=== PATIENT | male | born 1960 | race Caucasian/White ===

== ENCOUNTER 2018-03-23 06:15 | Inpatient (IN) | payer MEDICARE ==
[2018-03-23 06:57] LABS: #Basophils 0.1 thou/uL (0.0-0.2); #Eosinphils 0.1 thou/uL (0.0-0.7); #Lymphocytes 0.5 thou/uL (1.20-3.40); #Monocytes 0.1 thou/uL (0.11-0.59); #Neutrophils 2.9 thou/uL (1.40-6.50); %Basophils 2.1 % (0.0-1.0); %Eosinophils 2.8 % (0.0-10.0); %Lymphocytes 14.3 % (21.0-51.0); %Monocytes 1.6 % (0.0-10.0); %Neutrophils 79.2 % (42.0-75.0); Hemoglobin 15.7 g/dL (14.0-18.0); Mean Corpuscular HGB CONC 33.7 g/dL (32.0-36.0); Mean Corpuscular Hemoglobin 29.5 pg (27.0-31.0); Mean Corpuscular Volume 87.8 fL (78.0-98.0); Mean Platelet Volume 8.8 fL (7.4-10.4); Platelet Count 253 thou/uL (130-400); RBC Distribution Width 12.7 % (11.5-14.5); Red Blood Cell (RBC) Count 5.32 mill/uL (4.70-6.10); White Blood Cell (WBC) Count 3.6 thou/uL (4.8-10.8)
[2018-03-23 07:09] LABS: ALT (SGPT) 36 U/L (8-55); AST (SGOT) 30 U/L (5-34); Albumin 3.9 g/dL (3.5-5.0); Alkaline Phosphatase 113 U/L (40-150); Anion Gap 20 mmol/L (10-20); BUN (Urea Nitrogen) 42 mg/dL (8.4-25.7); Bilirubin, Total 1.1 mg/dL (0.2-1.2); Calc. Creatinine Clearance 0 mL/min (70-130); Calcium 10.1 mg/dL (7.8-10.44); Carbon Dioxide 17 mmol/L (22-29); Chloride 101 mmol/L (98-107); Estimated GFR-MDRD 25; Glucose 129 mg/dL (70-105); Potassium 4.8 mmol/L (3.5-5.1); Protein, Total 7.9 g/dL (6.0-8.3); Sodium 133 mmol/L (136-145)
[2018-03-23] MEDS ORDERED: Lorazepam 2 MG/ML VIAL ONE (07:10)
[2018-03-23 07:12] LABS: CKMB 1.9 ng/mL (0-6.6)
[2018-03-23] MEDS ORDERED: Dexamethasone 10 MG/ML VIAL ONE (07:41)
[2018-03-23] MEDS ORDERED: Fentanyl 100 MCG/2 ML VIAL ONE (07:44)
--- NOTE | 2018-03-23 07:48 | CT ---
CT ABDOMEN AND PELVIS WITHOUT IV CONTRAST: INDICATIONS: Renal stones and abdominal pain. COMPARISON: 11/08/2013 FINDINGS: There is prominent fatty infiltration of the liver, which has worsened from the prior exam. The panc reas, adrenal glands, and spleen appear within normal limits. There is extensive stone disease within both kidneys that has progressed from the prior exam. The la rgest stone, seen within the right kidney, measures 1.7 cm, within the inferior pole. There is a pro minent stone within the renal pelvis, measuring 1.5 cm. There is periureteral inflammatory stranding seen involving the right ureter, without visible intraluminal stone, that may reflect sequela of a r ecently passed stone or an ascending urinary tract infection. The largest stone within the left kidn ey is seen within the left renal pelvis, measuring 9.5 mm. There are moderate calcifications involving the abdominopelvic vasculature. Unopacified large and small bowel are unremarkable. There is a normal appendix in the right lower qu adrant. There is scattered degenerative and osteoarthritic change. IMPRESSION: 1. Worsening stone disease within both kidneys. There is inflammatory stranding involving the right renal collecting system, which may reflect sequela of a recently passed stone or possibly an ascendi ng urinary tract infection. Recommend correlation with the patient's clinical examination and labora tory evaluation. 2. Worsening fatty liver. 3. Other chronic findings as above. POS: [facility]
[2018-03-23 08:04] LABS: Blood, Urine Large (Negative); Clarity TURBID (Clear); Glucose, Urine (Dipstick) Negative (Negative); Leukocyte Large (Negative); Nitrite Positive (Negative); Protein, Urine (Dipstick) 100 mg/dL (Neg-Trace); Specific Gravity, Urine 1.017 (1.002-1.036); pH, Urine 5.5 (5.0-9.0)
[2018-03-23 08:13] LABS: Hyaline Casts/LPF >50 HYALINE CAST LPF (0-3 Hyaline); Pathc Cast-AUWi Flag 48.86 (0-2.49); Yeast-AUWi Flag 371.7 (0-25.0)
[2018-03-23 08:28] LABS: Prothrombin Time 14.3 SEC (12.0-14.7)
[2018-03-23 08:29] LABS: INR-International Normal Ratio 1.1; PTT 29.3 SEC (22.9-36.1)
[2018-03-23 08:38] LABS: Bilirubin Negative (Negative)
[2018-03-23 08:39] LABS: Bacteria/HPF 2+ HPF (None Seen); RBC/HPF GREATER THAN 50-TNTC HPF (0-3)
[2018-03-23 08:56] LABS: Actual Bicarbonate (HCO3a) 16.4 mEq/L (22-28); Analyzer IN Cardio ER; Base Excess (BEa) -4.9 mEq/L (-2.0 to +3.0); Calcium, Ionized 1.11 mmol/L (1.12-1.30); Carboxyhemoglobin (COHb) 0.6 gm% (0.0-3.0); Hemoglobin (Hb) 15.7 g/dL (14.0-18.0); O2 Tension (PaO2) 64.1 mmHg (80.0-100.0); Potassium - ABG Lab 4.61 mmol/L (3.70-5.30); pH, Arterial 7.47 (7.35-7.45)
[2018-03-23 08:59] LABS: CO2 Tension 23.1 mmHg (35.0-45.0)
[2018-03-23 09:00] LABS: ALV-art Gradient 56.755 (0-20); Puncture Site RB
[2018-03-23] MEDS ORDERED: Cefepime 2 GM in Sodium Chloride 0.9% 100 ML IVPB SCH (09:00)
--- NOTE | 2018-03-23 09:07 | RAD ---
CHEST TWO VIEWS: INDICATIONS: Hematuria. COMPARISON: 11/07/2013 FINDINGS/IMPRESSION: No definite acute abnormality is evident. No consolidation is evident. Heart size and pulmonary vas culature appear within normal limits for the exam technique. No pleural effusion or pneumothorax is evident within the limitations of the exam. No acute osseous abnormality is noted. Both exams are p ortable and somewhat underpenetrated. POS: [facility]
[2018-03-23] MEDS ORDERED: Ondansetron ODT 4 MG TAB PO PRN (09:43)
[2018-03-23] MEDS ORDERED: Bisacodyl 5 MG TAB PO PRN (09:43)
[2018-03-23] MEDS ORDERED: Artificial Tears 18 DROP/0.9 ML EA EYE PRN (09:43)
[2018-03-23] MEDS ORDERED: Cepastat Lozenges 1 LOZ PO PRN (09:43)
[2018-03-23] MEDS ORDERED: Sodium Chloride 0.65% Nasal 44 ML BOT EA NARE PRN (09:43)
[2018-03-23] MEDS ORDERED: ALL ABX IVPB PRN (09:43)
[2018-03-23] MEDS ORDERED: Senokot S 8.6-50 MG TAB PO PRN (09:43)
[2018-03-23] MEDS ORDERED: Diabetic Tussin 200 MG/10 ML UDCUP PO PRN (09:43)
[2018-03-23] MEDS ORDERED: Zolpidem Tartrate 5 MG TAB PO PRN (09:43)
[2018-03-23] MEDS ORDERED: Loperamide HCl 2 MG CAP PO PRN (09:43)
[2018-03-23] MEDS ORDERED: Eucerin (Mineral Oil/Petrolatum,White) 30 gm Jar TOP PRN (09:43)
[2018-03-23] MEDS ORDERED: Calcium Carbonate 500 MG ChewTAB PO PRN (09:43)
[2018-03-23] MEDS ORDERED: Bisacodyl 10 MG SUPP PR PRN (09:43)
[2018-03-23] MEDS ORDERED: Loratadine 10 MG TAB PO PRN (09:43)
[2018-03-23] MEDS ORDERED: Ondansetron PF 4 MG/2 ML Vial IVP PRN (09:43)
[2018-03-23] MEDS ORDERED: hydrALAZINE 20 MG/ML VIAL SLOW IVP PRN (09:43)
[2018-03-23] MEDS ORDERED: Dextrose 50% Abboject 50 ML SYRINGE SLOW IVP PRN (09:44)
[2018-03-23] MEDS ORDERED: Dextrose 5% in Water 1,000 ML IV PRN (09:44)
[2018-03-23] MEDS ORDERED: HumaLOG 300 UNITS/3 ML VIAL SC PRN (09:44)
[2018-03-23] MEDS ORDERED: Aspirin 325 MG TAB ONE (10:03)
[2018-03-23] MEDS ORDERED: Enoxaparin Sodium 60 MG/0.6 ML SYRINGE ONE (10:06)
[2018-03-23] MEDS ORDERED: Enoxaparin Sodium 100 MG/ML SYRINGE ONE (10:06)
[2018-03-23 10:31] LABS: Troponin I 0.249 ng/mL (< 0.028)
[2018-03-23 10:36] LABS: Lactic Acid 1.6 mmol/L (0.5-2.2)
[2018-03-23] MEDS ORDERED: Morphine 4 MG/ML VIAL SLOW IVP PRN (11:15)
[2018-03-23] MEDS ORDERED: Vancomycin HCl 1 GM in Premix Bag 1 BAG IVPB SCH (11:45)
[2018-03-23] MEDS ORDERED: Cefepime 1 GM in Sodium Chloride 0.9% 100 ML IVPB SCH ×2 (12:00→21:00)
[2018-03-23 13:17] LABS: Troponin I 0.251 ng/mL (< 0.028)
[2018-03-23] MEDS ORDERED: Norepinephrine 8 MG/0.9% NS 250 ML IVPB SCH (13:45)
[2018-03-23] MEDS ORDERED: Norepinephrine 8 MG/0.9% NS 250 ML ONE (14:15)
[2018-03-23] MEDS: Sodium Chloride 0.9% 1,000 ML IV SCH ×2 (14:28→17:17)
[2018-03-23 14:33] VITALS: BMI 47.2
[2018-03-23] MEDS: Potassium Citrate 10 MEQ TAB PO SCH ×2 (14:36→17:07)
[2018-03-23] MEDS: HumaLOG 300 UNITS/3 ML VIAL SC PRN (17:16)
[2018-03-23] MEDS: HYDROcodone/Acetaminophen 5/325 mg Tablet PO PRN (20:16)
[2018-03-24] MEDS: Sodium Chloride 0.9% 1,000 ML IV SCH ×4 (02:56→23:50)
[2018-03-24 05:08] LABS: ALT (SGPT) 32 U/L (8-55); AST (SGOT) 27 U/L (5-34); Alkaline Phosphatase 87 U/L (40-150); Anion Gap 12 mmol/L (10-20); BUN (Urea Nitrogen) 38 mg/dL (8.4-25.7); Bilirubin, Total 0.5 mg/dL (0.2-1.2); Calc. Creatinine Clearance 106 mL/min (70-130); Calcium 8.4 mg/dL (7.8-10.44); Carbon Dioxide 19 mmol/L (22-29); Chloride 109 mmol/L (98-107); Estimated GFR-MDRD 40; Globulin 3.3 g/dL (2.4-3.5); Glucose 221 mg/dL (70-105); Potassium 5.1 mmol/L (3.5-5.1); Protein, Total 6.3 g/dL (6.0-8.3); Sodium 135 mmol/L (136-145)
[2018-03-24 05:20] LABS: Band 28 % (5-11); Hemoglobin 12.6 g/dL (14.0-18.0); Lymphocytes 7 % (21-51); MDiff Complete? YES; Mean Corpuscular HGB CONC 32.7 g/dL (32.0-36.0); Mean Corpuscular Hemoglobin 29.1 pg (27.0-31.0); Mean Corpuscular Volume 89.2 fL (78.0-98.0); Mean Platelet Volume 9.1 fL (7.4-10.4); Monocytes 4 % (0-10); Neutrophil 61 % (42-75); PLT Morphology Comment Appears Adequate; Platelet Count 210 thou/uL (130-400); RBC Distribution Width 12.8 % (11.5-14.5); Red Blood Cell (RBC) Count 4.34 mill/uL (4.70-6.10); White Blood Cell (WBC) Count 18.7 thou/uL (4.8-10.8)
[2018-03-24] MEDS: HumaLOG 300 UNITS/3 ML VIAL SC PRN ×2 (06:15→12:31)
--- NOTE | 2018-03-24 07:49 | HP ---
PRIMARY CARE PHYSICIAN: Ashleigh Engle MD REASON FOR ADMISSION: Sepsis with acute organ dysfunction, acute kidney failure , acute pyelonephritis. HISTORY OF PRESENT ILLNESS: A 57-year-old male who has underlying history of diabetes, hypertension, dyslipidemia, obesity, who presented to emergency room with complaint of fever, chills. The patient was also having dysuria, hematuria, increased frequency, and back pain. He was sick for about one week. He was not getting better, but day by day, his condition started getting worse. Today, he started having cough and shortness of breath as well. When he arrived to the emergency room, the patient was hypotensive, tachypneic, tachycardic, and febrile. He was given DuoNeb therapy and his wheezing improved. He was given total 3 L of IV fluid and his blood pressure improved, but the patient was persistently tachycardic. Dr. Lagunas, Urology, saw this patient and put a Urena catheter in. In the emergency room, the patient had a chest x-ray, which was unremarkable. CT abdomen and pelvis showed worsening of nephrolithiasis and worsening of fatty liver. The patient also found with acute kidney failure. This patient has elevated cardiac enzymes and he has elevated D-dimer and that is why the patient is getting ventilation-perfusion scan. When I saw this patient, at that time, patient is feeling much better after IV fluid, but he is still tachycardic. He denies any hemoptysis or productive phlegm. He denies any chest pain. He denies any dizziness, syncope. He denies any constipation, diarrhea, melena, hematochezia. The patient does report generalized weakness, fatigue, malaise. He denies any flu-like illness. PAST MEDICAL HISTORY: Diabetes type 2, morbid obesity, hypertension, gout, arthritis, nephrolithiasis, fatty liver. PAST SURGICAL HISTORY: Reviewed and negative. PAST PSYCHIATRIC HISTORY: Reviewed and negative. SOCIAL HISTORY: The patient is , lives at home with his . He chews tobacco. He drinks alcohol occasionally. He denies any other illicit drug abuse. FAMILY HISTORY: No strong family history of CAD, CVA or cancer. REVIEW OF SYSTEMS: CONSTITUTIONAL: Negative for weight loss or gain, ability to conduct usual activities. SKIN: Negative for rash, itching. EYES: Negative for double vision, pain. ENT/MOUTH: Negative for nose bleeding, neck stiffness, pain, tenderness. CARDIOVASCULAR: Negative for palpitations, dyspnea on exertion, orthopnea. RESPIRATORY: Negative for shortness of breath, wheezing, cough, hemoptysis, fever or night sweats. GASTROINTESTINAL: Negative for poor appetite, abdominal pain, heartburn, nausea , vomiting, constipation, or diarrhea. GENITOURINARY: Negative for urgency, frequency, dysuria, nocturia. MUSCULOSKELETAL: Negative for pain, swelling. NEUROLOGIC/PSYCHIATRIC: Negative for anxiety, depression. ALLERGY/IMMUNOLOGIC: Negative for skin rash, bleeding tendency. Please see my HPI for pertinent positive and negative. All other review of systems reviewed and negative except as mentioned in HPI. ALLERGIES: PENICILLIN. CURRENT HOME MEDICATION: 1. Metformin 1000 mg twice daily. 2. Coreg 3.125 mg twice daily. 3. Lasix 20 mg daily. 4. Zocor 40 mg p.o. at bedtime. 5. Potassium chloride 10 mEq p.o. daily. 6. Zantac 150 mg daily. 7. Fish oil one capsule daily. 8. Multivitamin one tablet p.o. daily. 9. Glipizide 10 mg p.o. daily. 10. Tradjenta 5 mg p.o. daily. 11. Tricor 150 mg p.o. daily. 12. Tramadol 50 mg as needed. 13. Lisinopril 20 mg p.o. daily. EMERGENCY ROOM COURSE: The patient has received so far 3 L IV fluid, Lovenox 1 mg/kg subcu one time dose given, aspirin 325 mg given, cefepime 2 g, vancomycin 1 g, DuoNeb therapy, Decadron 10 mg, fentanyl 100 mcg, and lorazepam 1 mg given. PHYSICAL EXAMINATION: VITAL SIGNS: On arrival, blood pressure 97/61, pulse 149, respiratory rate 26, temperature 99.1, saturation 99% on room air. Weight 158.8 kg. GENERAL: The patient is currently febrile, tachycardic. No obvious acute distress. HEENT: Head; normocephalic, atraumatic. Eyes, pupils round, reactive to light. Extraocular muscle intact. NECK: Supple. No JVD. No thyromegaly. No carotid bruit. LUNGS: Clear to auscultation without any rhonchi or rales. CARDIAC: S1, S2. Regular, tachycardia. No murmur. No gallop. No rub. ABDOMEN: Obesity present. Bowel sounds present. No suprapubic tenderness. BACK: CVA tenderness noted on both sides. EXTREMITIES: Upper extremity, passive movement of all joints are normal. Lower extremity, chronic skin changes noted on lower extremity. No edema. Good distal pulsation. SKIN: No skin rash. HEMATOLOGICAL: No lymphadenopathy. PSYCHIATRIC: Normal affect. SIGNIFICANT LABORATORY DATA: CT abdomen and pelvis showing worsening nephrolithiasis in both kidneys, inflammatory stranding in the right renal collecting system. Worsening fatty liver. Chest x-ray based on my review, no acute cardiopulmonary process. CBC; WBC 3.6, hemoglobin 15.7, platelet 253. INR 1.1. D-dimer 2.33. ABG, pH 7.47, bicarb 14.4, CO2 23.1, O2 64.1. BMP; sodium 133, potassium 4.8, chloride 101, carbon dioxide 17, anion gap 20, BUN 42, creatinine 2.64, glucose 129, calcium 10.1, lactic acid 3.7, uric acid 7.2. LFT; AST 30, ALT 36, alkaline phosphatase 113, albumin 3.7. BNP 32.4. Troponin 0.040 and then 0.249. CK 92. Urinalysis suggestive of UTI. ASSESSMENT AND PLAN: Impression: 1. Acute kidney failure, likely due to sepsis. The patient will be given IV fluid and we will repeat BMP tomorrow. We will avoid nephrotoxins agent. 2. Sepsis with acute organ dysfunction. Source of infection is clearly acute pyelonephritis. The patient has acute kidney failure. The patient is also started on broad-spectrum antibiotic therapy with cefepime, Levaquin, and vancomycin. The patient is getting IV fluid and will follow up on culture result, suspecting bacteremia as well. 3. Acute pyelonephritis. Based on radiological and clinical picture, the patient has acute pyelonephritis. Urology consulted. The patient will be given broad-spectrum antibiotic therapy with cefepime, Levaquin, and vancomycin. We will follow up on culture result. We will control his pain with morphine p.r.n. basis. 4. Demand ischemia of myocardium. We will do serial cardiac enzymes x3 to rule out acute coronary syndrome. 5. Elevated D-dimer. The patient is getting V/Q scan in emergency room. The patient is already given Lovenox 1 mg/kg; however, suspicious for thromboembolic disorder is extremely low. All current presentation is explained by sepsis. 6. Lactic acidosis. We will repeat lactic acid again tomorrow morning. 7. Hyperuricemia with history of gout. We will continue allopurinol 100 mg p.o. daily. 8. Diabetes type 2. We will continue insulin as per sliding scale protocol. We will hold on any diabetic medication for now. 9. Dyslipidemia. Once we verify his home medication, then we will continue statin therapy. 10. Hypertension. We will hold on antihypertensive medication because the patient has currently low blood pressure. 11. Deep venous thrombosis prophylaxis. Heparin 5000 units subcu twice daily. 12. Gastrointestinal prophylaxis. Pepcid 20 mg p.o. daily. CODE STATUS: The patient is full code. The patient's is surrogate decision maker. DISPOSITION PLAN: Based on clinical course, we are expecting the patient to stay in hospital more than two midnights. PLAN OF CARE: Discussed with the patient and his at bedside in the emergency room. Job ID: [id number] [facility]
--- NOTE | 2018-03-24 07:50 | CON ---
DATE OF CONSULTATION: 03/23/2018 REASON FOR CONSULTATION: ER consultation regarding difficult Urena catheter placement, bilateral renal lithiasis. HISTORY OF PRESENT ILLNESS: Mr. Mancia is a 57-year-old morbidly obese male with past medical history of diabetes, gout, known history of kidney stones, remote history of cerebrovascular accident with minimal deficit, presents from [facility] due to fatigue, lower pelvic abdominal pain, dysuria. A 16-[place] Citizen Urena catheter was attempted by ER staff; however, unable to pass at the level of the distal urethra. Some blood at the meatus was subsequently noted and no forcibly- engaged Urena catheter was reattempted. He was complaining of sensation of incomplete void, slow stream and dysuria for approximately a week with generalized feeling of fatigue and subjective fever. He states that he is followed by Dr. Wing. I do not see any records in [facility]. He states that he was admitted in 2014 due to cerebrovascular accident and saw Dr. Wing, for history of kidney stones and was advised regarding observation. He denies surgical intervention of kidney stones. When I asked about his gout medications, he states that he is unaware that he has gout. Medical history does relate that he does have history of gout with elevated uric acid of 10.[address] of the abdomen and pelvis done, protocol was obtained on arrival demonstrating worsening stone disease bilaterally compared to 2014. He does have significant stone burden measuring up to 1.5 to 1.7 cm on the right and a 9 to 10 mm stone on the left renal pelvic region. No evidence of hydronephrosis is noted. However there are concerns regarding ascending UTI as there is prominence of the ureters. Bladder is not significantly distended. He shouldn't denies flank pain nor CVA tenderness. He denies history of CVA tenderness. Most of his discomfort is at the lower midback and sensation of incomplete void. He denies history of sexually transmitted disease or prior benign prostatic hyperplasia medications. A blood culture and urine culture had been obtained by the emergency room. He has been provided cefepime and vancomycin from the emergency room. PAST MEDICAL HISTORY: Morbid obesity, diabetes, hypertension, hyperlipidemia, gout, lumbar radiculopathy, history of cerebrovascular accident with minimal deficit. History of right frontal subcortical lesion, previously followed by Dr. Jeong. PAST SURGICAL HISTORY: None. ALLERGIES: HE IS ALLERGIC TO PENICILLIN. REVIEW OF SYSTEMS: 10-point of systems as above, otherwise noncontributory. FAMILY HISTORY: Paternal family history of prostate cancer and lymphoma. 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 He lives with his in a private residence. Denies alcohol, illicit drug use. History of snuff, quit. PHYSICAL EXAMINATION: VITAL SIGNS: Per ER, no fever; however, he is tachycardic at 130 to 140, blood pressure is stable. GENERAL: The patient appears somewhat uncomfortable, as he has sensation of incomplete void. States that he is extremely thirsty HEENT: Grossly unremarkable. HEART: Distant, tachy. LUNGS: Decreased inspiratory effort. Decreased breath sounds. As he is morbidly obese, difficult is auscultate. ABDOMEN: Morbidly obese, there is small umbilical hernia, protuberant. : He is circumcised. There is some evidence of blood at the meatus. TESTES: Descended. YANELIS demonstrates no significant fluctuance nodularity. No significant enlargement of the prostate is appreciated. EXTREMITIES: Chronic venous stasis changes of the lower extremities with pedal edema. LABORATORY DATA: Pertinent labs; white count 3.6, hemoglobin 15, 79 segs, platelet is 253. INR is 1.1. PTT of 29. D-dimer is elevated at 2.3. Lactic acid elevated to 3.7. His BUN is 42, creatinine 2.64. His baseline creatinine is variable from 0.9 to 1.2; however, his renal function does fluctuate and prior 2013, his kidney function has increased with creatinine of 3.5 to 2.4. Hemoglobin A1c of 6.9, November 2017. Uric acid back in 2013, was elevated at 10.4. Urinalysis on this admission demonstrates brown, turbid urine, 100 protein, positive nitrites, greater than 50 rbc's, greater than 50 wbc's, 7 to 10 epithelials, 2+ bacteria, pH of the urine is 5.5. Hepatitis panel is negative. Pervious urine culture, July 2014, demonstrates Escherichia coli; September 2013, Escherichia coli, pansensitive. CT of the abdomen and pelvis stone protocol, which I have reviewed myself. The stones are visible on Door Liner Helper, Hounsfield unit of the stones are variable from 1100 to 670. There is no gross hydronephrosis; however, there is prominence of the bilateral ureters, L greater than R per my review. There is no evidence of ureteral calculi. Bladder is slightly thickened incidentally without significant distention. Multiple right stone burden: Right : 1.5 cm renal pelvis, right lower pole anterior calyceal is 1.7 cm. There are other residual stones in the kidney variable from 5 to 6 mm x2 to x3. Left kidney stone, 9.5 mm in the left renal pelvis, other stones in the left lower pole, 2 to 3 mm to 4 to 5 mm. Per my review, there is no significant enlargement of his prostate. Echocardiogram back in 2013 demonstrates EF of 55% to 60% with mild tricuspid regurgitation, otherwise unremarkable. BEDSIDE PROCEDURE: The patient was advised regarding attempted urethral Urena catheter by . He agreed. His genital area was formally prepped and draped. I did place 12% viscous lidocaine. There was evidence of fossa navicularis stricture, as there was some resistance. I was able to bypass this with a 16- [place] Citizen Urena. There was another hang up in the distal penile urethra approximately 2 to 3 cm distal to the fossa navicularis. I injected more viscous lidocaine and was able to bypass this juncture to the level of the bladder with ease. Approximately, 300 mL of concentrated yellow urine was obtained for postvoid residual. Catheter was secured to gravity leg bag. IMPRESSION AND PLAN: Mr. Mancia is a 57-year-old male with past medical history of; 1. History of cerebrovascular accident with no significant deficit. 2. Morbid obesity. 3. History of gout. 4. History of diabetes. 5. Current presentation due to urinary tract infection, occult fossa navicularis , distal urethral stricture, in which catheter was able to be placed by without significant issues. Mild PVR, UA C and S has already been sent by the emergency room. 6. Urinary tract infection, with clinical picture consistent with early sepsis SIRS, as there is elevated lactic acid, . 7. Elevated troponins. 8. Bilateral renal lithiasis, burden as above. 9. Gout, unclear regarding recent serum uric acid level. Given that the patient's presents with urinary tract infection symptoms, I do not recommend active stone treatment at this time. He has mild prominence of the ureters bilaterally with no evidence of ureteral stones, without evidence of hydronephrosis. This is consistent with ascending urinary tract infection. His stones will be addressed at a later date , as he presents with early sepsis SIRS. No indication for ureteral stent at this time, as there is no ureteral calculi obstructing his kidneys. If clinical compromise , I would recommend repeat CT to monitor for proximal migration of his bilateral renal lithiasis. I would check a uric acid level. His Hounsfield unit of his kidney stone is consistent with likely calcium stone; heterogenous nucleation likely. As his urine pH is 5.5, I will add a Urocit-K to alkalinize urine. I recommend allopurinol, low-dose due to acute kidney injury and check uric acid level. Continue indwelling Urena catheter. Catheter is not to be removed, unless it is cleared by , as there is evidence of occult distal urethral stricture. Continue broad-spectrum antibiotic therapy. Recommend Cardiology consult. Job ID: [id number] [facility]
--- NOTE | 2018-03-24 07:51 | CON ---
DATE OF CONSULTATION: 03/23/2018 CONSULTING PHYSICIAN: Hospitalist group. REASON FOR CONSULTATION: Sepsis syndrome. HISTORY OF PRESENT ILLNESS: A 57-year-old male who has been feeling poorly for the last couple of days. I believe, he has been told he has kidney stones. He came in with urinary retention and hematuria. He tells me that the urologist had to put a Urena catheter in him. His blood pressures have been low. He had a central line placed. He has been started on Levophed. PAST MEDICAL HISTORY: 1. Diabetes mellitus type 2. 2. Nephrolithiasis. 3. Stroke. 4. Gout. 5. Hypertension. PAST SURGICAL HISTORY: None. FAMILY MEDICAL HISTORY: Remarkable for prostate cancer and lymphoma. SOCIAL HISTORY: Lives at home with his . 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 Does not use tobacco, but did smoke in the past. ALLERGIES: PENICILLIN. MEDICATIONS: Prior to admission; 1. Metformin. 2. Zantac. 3. Zocor. 4. Niacin. 5. Ibuprofen. 6. Carvedilol. REVIEW OF SYSTEMS: Remarkable for fever, chills, fatigue, lack of appetite, hematuria. PHYSICAL EXAMINATION: VITAL SIGNS: Temperature 99.0, pulse 105, respiratory rate 26, blood pressure 104/46, O2 saturation 99%. GENERAL: He is awake, conversant, and in no acute distress, although, he looks acutely ill. HEENT: Pupils are reactive. Sclerae anicteric. Oropharynx is class IV Mallampati airway. NECK: No adenopathy, JVD, or bruits. LUNGS: Clear anteriorly without wheezing or rhonchi. CARDIAC: S1, S2. Slightly tachycardic without murmur. ABDOMEN: Obese, soft, nontender. EXTREMITIES: No clubbing or cyanosis. 2+ edema in his lower extremities. : He has a Urena catheter in place. LABORATORY DATA: White blood cell count 3.6, hematocrit 46.7, platelet count 253. INR 1.1, PTT 29.3, D-dimer 2.33. PH 7.47, pCO2 of 23, PO2 of 64 on room air. Sodium 138, potassium 4.8, chloride 101, CO2 of 17, BUN 42, creatinine 2.6, glucose 129. Urinalysis shows hematuria and pyuria. A CT of his abdomen and pelvis demonstrates extensive stone disease within both kidneys that has apparently progressed. He also has fatty liver. Chest x-ray demonstrates no mass, effusion, or infiltrate. ASSESSMENT: 1. Urosepsis. 2. Septic shock. 3. Nephrolithiasis, which is probably the source of sepsis. 4. Diabetes mellitus type 2. 5. Generalized failure to thrive. PLAN: 1. The patient has been started on IV antibiotics with cefepime, Levaquin, and vancomycin. 2. Continue Levophed as needed. 3. IV hydration. 4. Blood glucose control. 5. He will be able to move out of the ICU once he is off the Levophed. 6. Urology consultation has been obtained. Job ID: [id number]
[2018-03-24] MEDS: Famotidine 20 MG TAB PO SCH (08:01)
[2018-03-24] MEDS: Allopurinol 100 MG TAB PO SCH (08:01)
[2018-03-24] MEDS: Potassium Citrate 10 MEQ TAB PO SCH ×3 (08:01→17:43)
[2018-03-24] MEDS: Saccharomyces boulardii 250 MG CAP PO SCH (08:02)
[2018-03-24] MEDS: Tamsulosin HCl 0.4 MG CAP PO SCH (08:02)
--- NOTE | 2018-03-24 09:34 | PRG ---
DATE OF SERVICE: 03/24/2018 SUBJECTIVE: The patient in ICU, was on Levophed overnight, currently off pressors. Blood pressure 111/67. The patient without complaints, he states that he feels better. Denies flank pain or chills. Urine draining uneventfully. OBJECTIVE: VITAL SIGNS: T-max 97.7, pulse 81, respirations 15, temperature 99, blood pressure 105/65. I's and O's; 2379 in, 2911 out. One bowel movement. ABDOMEN: Morbidly obese, protuberant. No rigidity. No rebound. No CVA tenderness. : Urena catheter draining concentrated yellow urine. No blood at the meatus. PERTINENT LABS: White count 18.7, hemoglobin 12, platelet 210, he has 28 bands. INR and PTT are unremarkable. Renal function; sodium of 135, BUN 38, creatinine 1.7, and admitting creatinine of 2.64. Microbiology review demonstrating blood culture 2/2 sets, gram-negative trang. Urine culture demonstrates E. coli, sensitivity pending. currently on cefepime and vancomycin. IMPRESSION AND PLAN: Mr. Mancia is a 57-year-old morbidly obese male with past medical history of: 1. Diabetes. 2. History of gout. 3. History of renolithiasis, presents with Escherichia coli urosepsis 4. Mild fossa navicularis, distal penile urethral stricture, The patient was seen as an ER consult demonstrating fossa navicularis distal penile urethral mild stricture, I was able to pass a 16-[place] Urena catheter with mild resistance. 300 mL of postvoid residual was obtained. His uric acid was within normal limits. He does have significant bilateral stone burden, which will be treated at a later date. His urine pH is 5.5, with history of gout, Urocit-K. Started on admission. Continue indwelling Urena catheter, do not remove unless it is okay with . After resolution of E. coli urosepsis, will obtain a restaging CT scan to proceed with elective stone treatment of his bilateral renal calculi. Strict control of his diabetes advised. Due to presenting elevated troponin on admission, cardiology clearance would be warranted prior to elective stone treatment. Job ID: [id number] [facility]
[2018-03-24] MEDS ORDERED: Cefepime 2 GM in Sodium Chloride 0.9% 100 ML IVPB SCH (10:00)
--- NOTE | 2018-03-24 10:01 | PRG ---
DATE OF SERVICE: 03/24/2018 SUBJECTIVE: He has been weaned off the Levophed. He feels better today. OBJECTIVE: VITAL SIGNS: His temperature is 97.5, pulse 92, blood pressure 117/58, and O2 saturation 100%. HEENT: Unremarkable. He has a right IJ central line in his neck. LUNGS: Clear. CARDIAC: S1 and S2, regular. ABDOMEN: Protuberant. He has a Urena catheter in place. EXTREMITIES: Edematous from the knees downward. LABORATORY DATA: White blood cell count 18.7, hematocrit 38.7, and platelet count 210. Sodium 135, potassium 5.1, BUN 38, creatinine 1.7, glucose 221. His cultures are growing E coli. ASSESSMENT: Escherichia coli urosepsis. RECOMMENDATION: 1. Continue treatment with antibiotics. 2. Urology consultation. 3. Okay to transfer out to the floor. 4. No pulmonary critical care concerns. I will sign off. Please recall further assistance if needed. Job ID: [id number]
[2018-03-24] MEDS: Fish Oil 1,000 MG CAP PO SCH (10:05)
--- NOTE | 2018-03-24 10:35 | PDOC.PN ---
- Subjective Encounter Start Date: 03/24/18 Encounter Start Time: 07:00 -: old records requested/rev Patient seen and examined. No new complaints. No overnight events now levophed off, tachycardia resolved, await medical bed - Objective Resuscitation Status - Order Detail: 03/23/18 09:39 Resuscitation Status Routine Resuscitation Status: FULL: Full Resuscitation MAR Reviewed: Yes Vital Signs & Weight: Vital Signs (12 hours) Temp Pulse Ox 03/24/18 08:00 97.5 F L 100 03/24/18 04:00 97.7 F 03/24/18 00:00 97.4 F L Weight Weight 339 lb 1.135 oz Most Recent Monitor Data Heart Rate from ECG 94 NIBP 128/73 NIBP BP-Mean 91 Respiration from ECG 18 SpO2 99 I&O: 03/23/18 03/24/18 03/25/18 06:59 06:59 06:59 Intake Total 2379 260 Output Total 2911 530 Balance -532 -270 Result Diagrams: 03/24/18 04:05 03/24/18 04:05 Additional Labs: Accuchecks 03/24/18 03/23/18 03/23/18 06:14 20:21 16:59 POC Glucose 169 H 247 H 270 H EKG Reviewed by me: Yes (nsr) Phys Exam - Physical Examination Constitutional: NAD HEENT: PERRLA, moist MMs, sclera anicteric Neck: no JVD, supple Respiratory: no wheezing, no rales, no rhonchi Cardiovascular: RRR, no significant murmur, no rub Gastrointestinal: soft, non-tender, no distention, positive bowel sounds obesity+ Musculoskeletal: pulses present chronic venous stasis Neurological: non-focal, normal sensation, moves all 4 limbs Lymphatic: no nodes Psychiatric: normal affect, A&O x 3 Skin: no rash, normal turgor Dx/Plan (1) Acute kidney failure Status: Acute (2) Acute pyelonephritis Code(s): N10 - ACUTE PYELONEPHRITIS Status: Acute (3) Bacteremia, escherichia coli Code(s): R78.81 - BACTEREMIA Status: Acute (4) Demand ischemia of myocardium Code(s): I24.8 - OTHER FORMS OF ACUTE ISCHEMIC HEART DISEASE Status: Acute (5) Diabetes type 2, controlled Code(s): E11.9 - TYPE 2 DIABETES MELLITUS WITHOUT COMPLICATIONS Status: Chronic (6) Dyslipidemia Code(s): E78.5 - HYPERLIPIDEMIA, UNSPECIFIED Status: Chronic (7) Fatty liver Code(s): K76.0 - FATTY (CHANGE OF) LIVER, NOT ELSEWHERE CLASSIFIED Status: Chronic (8) GERD (gastroesophageal reflux disease) Code(s): K21.9 - GASTRO-ESOPHAGEAL REFLUX DISEASE WITHOUT ESOPHAGITIS Status: Chronic (9) Hypertension Code(s): I10 - ESSENTIAL (PRIMARY) HYPERTENSION Status: Chronic (10) Lactic acidosis Code(s): E87.2 - ACIDOSIS Status: Acute (11) Nephrolithiasis Status: Chronic (12) Sepsis with acute organ dysfunction Code(s): A41.9 - SEPSIS, UNSPECIFIED ORGANISM; R65.20 - SEVERE SEPSIS WITHOUT SEPTIC SHOCK Status: Acute (13) Septic shock Code(s): A41.9 - SEPSIS, UNSPECIFIED ORGANISM; R65.21 - SEVERE SEPSIS WITH SEPTIC SHOCK Status: Resolved - Plan cont current plan of care, continue antibiotics * continue cefepime and levaquin * dc vancomycin * continue ivf * follow on culture result. * start PT * medication reviewed as below * symptomatic treatment * repeat labs tomorrow Review of Systems - Review of Systems ENT: negative: Ear Pain, Ear Discharge, Nose Pain, Nose Discharge, Nose Congestion, Mouth Pain, Mouth Swelling, Throat Pain, Throat Swelling, Other Respiratory: negative: Cough, Dry, Shortness of Breath, Hemoptysis, SOB with Excertion, Pleuritic Pain, Sputum, Wheezing Cardiovascular: negative: chest pain, palpitations, orthopnea, paroxysmal nocturnal dyspnea, edema, light headedness, other Gastrointestinal: negative: Nausea, Vomiting, Abdominal Pain, Diarrhea, Constipation, Melena, Hematochezia, Other Genitourinary: negative: Dysuria, Frequency, Incontinence, Hematuria, Retention , Other Musculoskeletal: negative: Neck Pain, Shoulder Pain, Arm Pain, Back Pain, Hand Pain, Leg Pain, Foot Pain, Other Skin: negative: Rash, Lesions, Pepito, Bruising, Other - Medications/Allergies Allergies/Adverse Reactions: Allergies Allergy/AdvReac Type Severity Reaction Status Date / Time Penicillins Allergy Hives Verified 03/23/18 16:33 Medications: Current Medications Acetaminophen (Tylenol) 650 mg PO Q4H PRN PRN Reason: Headache/Fever/Mild Pain (1-3) Hydrocodone Bitart/Acetaminophen ([place] 5/325) 1 tab PO Q4H PRN PRN Reason: Moderate Pain (4-6) Last Admin: 03/23/18 20:16 Dose: 1 tab Albuterol/Ipratropium (Duoneb) 3 ml NEB Q6H PRN PRN Reason: SOB &/or Wheezing Allopurinol (Zyloprim) 100 mg PO DAILY [facility] Last Admin: 03/24/18 08:01 Dose: 100 mg Artificial Tears (Tears Naturale) 2 drop EA EYE PRN PRN PRN Reason: Dry Eyes Bisacodyl (Dulcolax) 10 mg PO DAILYPRN PRN PRN Reason: Constipation Bisacodyl (Dulcolax) 10 mg [place] DAILYPRN PRN PRN Reason: Constipation Dextrose/Water (Dextrose 50%) 25 gm SLOW IVP PRN PRN PRN Reason: Hypoglycemia Famotidine (Pepcid) 20 mg PO DAILY [facility] Last Admin: 03/24/18 08:01 Dose: 20 mg Fish Oil (Fish Oil) 1,000 mg PO DAILY [facility] Glucagon (Glucagon) 1 mg IM PRN PRN PRN Reason: Hypoglycemia Guaifenesin (Robitussin Sf) 200 mg PO Q4H PRN PRN Reason: Cough Hydralazine HCl (Apresoline) 10 mg SLOW IVP Q4H PRN PRN Reason: SBP > 180 and HR < 70 Sodium Chloride (Normal Saline 0.9%) 1,000 mls @ 125 mls/hr IV .Q8H [facility] Last Admin: 03/24/18 02:56 Dose: 1,000 mls Dextrose/Water (D5w) 1,000 mls @ 0 mls/hr IV .Q0M PRN PRN Reason: Hypoglycemia Levofloxacin 250 mg/ Device 50 mls @ 50 mls/hr IVPB 1100 NESTOR Cefepime HCl 2 gm/ Sodium (Chloride) 100 mls @ 200 mls/hr IVPB 1000 NESTOR Norepinephrine Bitartrate (Levophed) 250 mls @ 0 mls/hr IVPB INF NESTOR; Protocol Insulin Human Lispro (Humalog) 0 units SC .MODERATE SLIDING SC PRN PRN Reason: Moderate Correctional Scale Last Admin: 03/24/18 06:15 Dose: 2 unit Insulin Human Lispro (Humalog) 0 units SC .BEDTIME SLIDING SC PRN PRN Reason: Bedtime Correctional Scale Last Admin: 03/23/18 20:21 Dose: 2 unit Loperamide HCl (Imodium) 2 mg PO PRN PRN PRN Reason: Diarrhea/Loose Stools Loratadine (Claritin) 10 mg PO DAILYPRN PRN PRN Reason: Sinus Symptoms Mineral Oil/White Petrolatum (Eucerin Cream) 0 gm TOP BIDPRN PRN PRN Reason: Dry Skin Morphine Sulfate (Morphine) 2 mg SLOW IVP Q4H PRN PRN Reason: Severe Pain (7-10) Ondansetron HCl (Zofran Odt) 4 mg PO Q6H PRN PRN Reason: Nausea/Vomiting Ondansetron HCl (Zofran) 4 mg IVP Q6H PRN PRN Reason: Nausea/Vomiting Potassium Citrate (Urocit K) 10 meq PO TID-[facility] Last Admin: 03/24/18 08:01 Dose: 10 meq Saccharomyces Boulardii (Florastor) 250 mg PO DAILY [facility] Last Admin: 03/24/18 08:02 Dose: 250 mg Senna/Docusate Sodium (Senokot S) 2 tab PO BID PRN PRN Reason: Constipation Sodium Chloride ([place] Nasal [facility] 0.65%) 0 ml EA NARE QIDPRN PRN PRN Reason: Nasal Congestion Tamsulosin HCl (Flomax) 0.4 mg PO DAILY [facility] Last Admin: 03/24/18 08:02 Dose: 0.4 mg Throat Lozenges (Cepastat Lozenges) 1 toribio PO Q2H PRN PRN Reason: Sore Throat Zolpidem Tartrate (Ambien) 5 mg PO HSPRN PRN PRN Reason: Insomnia
[2018-03-24] MEDS: cefTRIAXone\\ROCEPHIN 2 GM in Sodium Chloride 0.9% 100 ML IVPB SCH (15:33)
[2018-03-24] MEDS: HYDROcodone/Acetaminophen 5/325 mg Tablet PO PRN (23:55)
[2018-03-25 06:04] LABS: Anion Gap 12 mmol/L (10-20); BUN (Urea Nitrogen) 29 mg/dL (8.4-25.7); Calc. Creatinine Clearance 161 mL/min (70-130); Calcium 8.8 mg/dL (7.8-10.44); Carbon Dioxide 19 mmol/L (22-29); Chloride 110 mmol/L (98-107); Estimated GFR-MDRD 67; Glucose 159 mg/dL (70-105); Potassium 4.5 mmol/L (3.5-5.1); Sodium 136 mmol/L (136-145)
[2018-03-25 06:15] LABS: Band 6 % (5-11); Hemoglobin 13.2 g/dL (14.0-18.0); Hypochromia SLIGHT = 6-15 cells (100X) (0-5/hpf); Lymphocytes 4 % (21-51); MDiff Complete? YES; Mean Corpuscular HGB CONC 33.3 g/dL (32.0-36.0); Mean Corpuscular Hemoglobin 29.6 pg (27.0-31.0); Mean Corpuscular Volume 88.7 fL (78.0-98.0); Mean Platelet Volume 9.5 fL (7.4-10.4); Monocytes 4 % (0-10); Neutrophil 86 % (42-75); PLT Morphology Comment Appears Adequate; Platelet Count 222 thou/uL (130-400); RBC Distribution Width 12.6 % (11.5-14.5); Red Blood Cell (RBC) Count 4.48 mill/uL (4.70-6.10); White Blood Cell (WBC) Count 19.2 thou/uL (4.8-10.8)
[2018-03-25] MEDS: Acetaminophen 325 MG TAB PO PRN ×2 (06:16→20:24)
[2018-03-25] MEDS: Tamsulosin HCl 0.4 MG CAP PO SCH (08:07)
[2018-03-25] MEDS: Famotidine 20 MG TAB PO SCH (08:07)
[2018-03-25] MEDS: Fish Oil 1,000 MG CAP PO SCH (08:07)
[2018-03-25] MEDS: Potassium Citrate 10 MEQ TAB PO SCH ×3 (08:07→16:27)
[2018-03-25] MEDS: Allopurinol 100 MG TAB PO SCH (08:08)
[2018-03-25] MEDS: Saccharomyces boulardii 250 MG CAP PO SCH (08:08)
--- NOTE | 2018-03-25 10:04 | PRG ---
DATE OF SERVICE: 03/25/2018 SUBJECTIVE: The patient is feeling well, wants to go home. OBJECTIVE: VITAL SIGNS: Stable. He is afebrile, temperature 97, respirations 18, pulse 97, and blood pressure 135/75. I's and O's; 4858 in, 4800 out. He is negative 700 mL. ABDOMEN: Morbidly obese, protuberant. No CVA tenderness. : Urena catheter draining yellow urine with minimal sediment. LABORATORY DATA: Urine culture and blood culture reviewed, demonstrating E coli. Blood culture 2/2. Urine culture positive, it is pansensitive. Currently on Rocephin. IMPRESSION AND PLAN: Mr. Mancia is a 57-year-old male with morbid obesity, past medical history of: 1. Diabetes. 2. History of gout. 3. History of renal lithiasis with no evidence of hydronephrosis. 4. History of mild fossa navicularis, distal penile urethral stricture. Urena catheter placed by on this admission. There was mild resistance with PVR of 300 mL. 5. Escherichia coli urosepsis. 6. Elevated troponin on admission. RECOMMENDATIONS: May continue Rocephin for now, as he has urosepsis with positive blood culture, he will require 4 weeks of antibiotic therapy. I prefer the patient be discharged with Levaquin 500 mg one p.o. daily. His white count remains elevated; however, there is improvement of bandemia. Renal function with acute kidney injury on arrival which is multifactorial prerenal and renal has resolved to his baseline. I would recommend he continue Flomax, Urocit-K, and allopurinol 100 mg one p.o. daily. We will obtain restaging CT at a later point, to re-stage his extensive bilateral renal lithiasis. Await Cardiology consult, he will require Cardiology clearance to proceed with general anesthesia for elective treatment of his kidney stones. The patient will most likely be in-house for another 48 hours until his septic parameters have improved. Recommend daily CBC for now/BMP. will initiate voiding trial when the patient is ready for discharge. Anticipate the patient ready for discharge on . Job ID: [id number] MTDD
--- NOTE | 2018-03-25 11:51 | PDOC.PN ---
- Subjective Encounter Start Date: 03/25/18 Encounter Start Time: 09:00 Patient seen and examined. No new complaints. No overnight events - Objective Resuscitation Status - Order Detail: 03/23/18 09:39 Resuscitation Status Routine Resuscitation Status: FULL: Full Resuscitation MAR Reviewed: Yes Vital Signs & Weight: Vital Signs (12 hours) Temp Pulse Resp BP BP Pulse Ox 03/25/18 07:50 97.5 F L 91 18 135/75 97 03/25/18 04:00 97.5 F L 86 24 H 156/73 H 94 L 03/25/18 00:00 97.8 F 82 18 156/77 H 95 Weight Weight 339 lb 1.135 oz Most Recent Monitor Data Heart Rate from ECG 85 NIBP 141/88 NIBP BP-Mean 105 Respiration from ECG 19 SpO2 97 I&O: 03/24/18 03/25/18 03/26/18 06:59 06:59 06:59 Intake Total 2379 4058 Output Total 2911 6075 Balance -373 -176 Result Diagrams: 03/25/18 05:00 03/25/18 05:00 Additional Labs: Accuchecks 03/25/18 03/24/18 03/24/18 04:46 17:14 12:13 POC Glucose 152 H 140 H 220 H Phys Exam - Physical Examination Constitutional: NAD HEENT: PERRLA, moist MMs, sclera anicteric Neck: no JVD, supple Respiratory: no wheezing, no rales, no rhonchi Cardiovascular: RRR, no significant murmur, no rub Gastrointestinal: soft, non-tender, no distention, positive bowel sounds alvarez+ Musculoskeletal: no edema, pulses present Neurological: non-focal, normal sensation Psychiatric: normal affect, A&O x 3 Skin: no rash, normal turgor Dx/Plan (1) Acute kidney failure Status: Acute (2) Acute pyelonephritis Code(s): N10 - ACUTE PYELONEPHRITIS Status: Acute (3) Bacteremia, escherichia coli Code(s): R78.81 - BACTEREMIA Status: Acute (4) Demand ischemia of myocardium Code(s): I24.8 - OTHER FORMS OF ACUTE ISCHEMIC HEART DISEASE Status: Acute (5) Diabetes type 2, controlled Code(s): E11.9 - TYPE 2 DIABETES MELLITUS WITHOUT COMPLICATIONS Status: Chronic (6) Dyslipidemia Code(s): E78.5 - HYPERLIPIDEMIA, UNSPECIFIED Status: Chronic (7) Fatty liver Code(s): K76.0 - FATTY (CHANGE OF) LIVER, NOT ELSEWHERE CLASSIFIED Status: Chronic (8) GERD (gastroesophageal reflux disease) Code(s): K21.9 - GASTRO-ESOPHAGEAL REFLUX DISEASE WITHOUT ESOPHAGITIS Status: Chronic (9) Hypertension Code(s): I10 - ESSENTIAL (PRIMARY) HYPERTENSION Status: Chronic (10) Lactic acidosis Code(s): E87.2 - ACIDOSIS Status: Acute (11) Nephrolithiasis Status: Chronic (12) Sepsis with acute organ dysfunction Code(s): A41.9 - SEPSIS, UNSPECIFIED ORGANISM; R65.20 - SEVERE SEPSIS WITHOUT SEPTIC SHOCK Status: Acute (13) Septic shock Code(s): A41.9 - SEPSIS, UNSPECIFIED ORGANISM; R65.21 - SEVERE SEPSIS WITH SEPTIC SHOCK Status: Resolved - Plan cont current plan of care, continue antibiotics * medication reviewed as below * symptomatic treatment * continue current iv antibiotics * will repeat labs and culture tomorrow * urology recommendation appreciated. * DC IVF Review of Systems - Review of Systems ENT: negative: Ear Pain, Ear Discharge, Nose Pain, Nose Discharge, Nose Congestion, Mouth Pain, Mouth Swelling, Throat Pain, Throat Swelling, Other Respiratory: negative: Cough, Dry, Shortness of Breath, Hemoptysis, SOB with Excertion, Pleuritic Pain, Sputum, Wheezing Cardiovascular: negative: chest pain, palpitations, orthopnea, paroxysmal nocturnal dyspnea, edema, light headedness, other Gastrointestinal: negative: Nausea, Vomiting, Abdominal Pain, Diarrhea, Constipation, Melena, Hematochezia, Other Genitourinary: negative: Dysuria, Frequency, Incontinence, Hematuria, Retention , Other Musculoskeletal: negative: Neck Pain, Shoulder Pain, Arm Pain, Back Pain, Hand Pain, Leg Pain, Foot Pain, Other Skin: negative: Rash, Lesions, Pepito, Bruising, Other - Medications/Allergies Allergies/Adverse Reactions: Allergies Allergy/AdvReac Type Severity Reaction Status Date / Time Penicillins Allergy Hives Verified 03/23/18 16:33 Medications: Current Medications Acetaminophen (Tylenol) 650 mg PO Q4H PRN PRN Reason: Headache/Fever/Mild Pain (1-3) Last Admin: 03/25/18 06:16 Dose: 650 mg Hydrocodone Bitart/Acetaminophen ([place] 5/325) 1 tab PO Q4H PRN PRN Reason: Moderate Pain (4-6) Last Admin: 03/24/18 23:55 Dose: 1 tab Albuterol/Ipratropium (Duoneb) 3 ml NEB Q6H PRN PRN Reason: SOB &/or Wheezing Allopurinol (Zyloprim) 100 mg PO DAILY [facility] Last Admin: 03/25/18 08:08 Dose: 100 mg Artificial Tears (Tears Naturale) 2 drop EA EYE PRN PRN PRN Reason: Dry Eyes Bisacodyl (Dulcolax) 10 mg PO DAILYPRN PRN PRN Reason: Constipation Bisacodyl (Dulcolax) 10 mg [place] DAILYPRN PRN PRN Reason: Constipation Dextrose/Water (Dextrose 50%) 25 gm SLOW IVP PRN PRN PRN Reason: Hypoglycemia Famotidine (Pepcid) 20 mg PO DAILY [facility] Last Admin: 03/25/18 08:07 Dose: 20 mg Fish Oil (Fish Oil) 1,000 mg PO DAILY [facility] Last Admin: 03/25/18 08:07 Dose: 1,000 mg Glucagon (Glucagon) 1 mg IM PRN PRN PRN Reason: Hypoglycemia Guaifenesin (Robitussin Sf) 200 mg PO Q4H PRN PRN Reason: Cough Hydralazine HCl (Apresoline) 10 mg SLOW IVP Q4H PRN PRN Reason: SBP > 180 and HR < 70 Dextrose/Water (D5w) 1,000 mls @ 0 mls/hr IV .Q0M PRN PRN Reason: Hypoglycemia Ceftriaxone Sodium 2 gm/ (Sodium Chloride) 100 mls @ 100 mls/hr IVPB 1400 [facility] Last Admin: 03/24/18 15:33 Dose: 100 mls Insulin Human Lispro (Humalog) 0 units SC .MODERATE SLIDING SC PRN PRN Reason: Moderate Correctional Scale Last Admin: 03/24/18 12:31 Dose: 4 unit Insulin Human Lispro (Humalog) 0 units SC .BEDTIME SLIDING SC PRN PRN Reason: Bedtime Correctional Scale Last Admin: 03/23/18 20:21 Dose: 2 unit Loperamide HCl (Imodium) 2 mg PO PRN PRN PRN Reason: Diarrhea/Loose Stools Loratadine (Claritin) 10 mg PO DAILYPRN PRN PRN Reason: Sinus Symptoms Mineral Oil/White Petrolatum (Eucerin Cream) 0 gm TOP BIDPRN PRN PRN Reason: Dry Skin Morphine Sulfate (Morphine) 2 mg SLOW IVP Q4H PRN PRN Reason: Severe Pain (7-10) Ondansetron HCl (Zofran Odt) 4 mg PO Q6H PRN PRN Reason: Nausea/Vomiting Ondansetron HCl (Zofran) 4 mg IVP Q6H PRN PRN Reason: Nausea/Vomiting Potassium Citrate (Urocit K) 10 meq PO TID-[facility] Last Admin: 03/25/18 08:07 Dose: 10 meq Saccharomyces Boulardii (Florastor) 250 mg PO DAILY [facility] Last Admin: 03/25/18 08:08 Dose: 250 mg Senna/Docusate Sodium (Senokot S) 2 tab PO BID PRN PRN Reason: Constipation Sodium Chloride ([place] Nasal [place] 0.65%) 0 ml EA NARE QIDPRN PRN PRN Reason: Nasal Congestion Tamsulosin HCl (Flomax) 0.4 mg PO DAILY [facility] Last Admin: 03/25/18 08:07 Dose: 0.4 mg Throat Lozenges (Cepastat Lozenges) 1 toriibo PO Q2H PRN PRN Reason: Sore Throat Zolpidem Tartrate (Ambien) 5 mg PO HSPRN PRN PRN Reason: Insomnia
[2018-03-25] MEDS: cefTRIAXone\\ROCEPHIN 2 GM in Sodium Chloride 0.9% 100 ML IVPB SCH (15:15)
[2018-03-26 06:03] LABS: #Eosinphils 0.1 thou/uL (0.0-0.7); #Lymphocytes 1.9 thou/uL (1.20-3.40); #Neutrophils 8.9 thou/uL (1.40-6.50); %Basophils 0.1 % (0.0-1.0); %Eosinophils 0.8 % (0.0-10.0); %Monocytes 8.2 % (0.0-10.0); %Neutrophils 74.9 % (42.0-75.0); Hemoglobin 13.8 g/dL (14.0-18.0); Mean Corpuscular HGB CONC 32.6 g/dL (32.0-36.0); Mean Corpuscular Hemoglobin 28.5 pg (27.0-31.0); Mean Corpuscular Volume 87.5 fL (78.0-98.0); Mean Platelet Volume 8.8 fL (7.4-10.4); Platelet Count 212 thou/uL (130-400); RBC Distribution Width 12.6 % (11.5-14.5); Red Blood Cell (RBC) Count 4.84 mill/uL (4.70-6.10); White Blood Cell (WBC) Count 11.9 thou/uL (4.8-10.8)
[2018-03-26 06:04] LABS: Anion Gap 10 mmol/L (10-20); BUN (Urea Nitrogen) 27 mg/dL (8.4-25.7); Calc. Creatinine Clearance 170 mL/min (70-130); Calcium 9.3 mg/dL (7.8-10.44); Carbon Dioxide 23 mmol/L (22-29); Chloride 109 mmol/L (98-107); Estimated GFR-MDRD 72; Glucose 102 mg/dL (70-105); Sodium 138 mmol/L (136-145)
[2018-03-26] MEDS: Potassium Citrate 10 MEQ TAB PO SCH ×3 (08:01→18:05)
[2018-03-26] MEDS: Allopurinol 100 MG TAB PO SCH (08:02)
[2018-03-26] MEDS: Saccharomyces boulardii 250 MG CAP PO SCH (08:02)
[2018-03-26] MEDS: Famotidine 20 MG TAB PO SCH (08:02)
[2018-03-26] MEDS: Fish Oil 1,000 MG CAP PO SCH (08:02)
[2018-03-26] MEDS: Tamsulosin HCl 0.4 MG CAP PO SCH (08:02)
--- NOTE | 2018-03-26 08:26 | CON ---
DATE OF CONSULTATION: 03/25/2018 REASON FOR CONSULTATION: Preoperative evaluation. HISTORY OF PRESENT ILLNESS: Mr. Mancia is a pleasant 57-year-old white gentleman who comes to the hospital for not feeling well in the last 2 days. He was diagnosed with urinary retention and hematuria. Urena catheter was placed with difficulty by urologist overnight. He was placed on a Levophed drip for low blood pressure and eventually, a CT of the abdomen and pelvis showed large stone burden, so Dr. Lagunas is planning on doing surgical intervention on this, possibly putting a stent on his ureters. Cardiology has been consulted for preoperative evaluation as during his admission, his troponins were in the indeterminate range. I saw Mr. Mancia one time about a year ago. At that time, he came in for just worsening shortness of breath. He had an echocardiogram and the stress test ordered which he never came for. This is for evaluation of shortness of breath. Currently, he denies any chest pain, tightness, or pressure. He states that the shortness of breath has not really changed. When I told him that I am seeing him because I have been asked to evaluate him for his preoperative risk, he tells me that he is not interested in any surgery, he would like to wait for any surgeries at this time. I told him this is not my role to decide that with him, this is something he needs to discuss with Dr. Lagunas first. PAST MEDICAL HISTORY: 1. Type 2 diabetes. 2. Morbid obesity. 3. Hypertension. 4. Gout. 5. Osteoarthritis. 6. Nephrolithiasis. 7. Fatty liver. PAST SURGICAL HISTORY: None. SOCIAL HISTORY: Chews tobacco. Drinks alcohol occasionally. No drug use. FAMILY HISTORY: Noncontributory. OUTPATIENT MEDICATIONS: 1. Tramadol p.r.n. 2. Lasix 20 mg a day. 3. Fish oil daily. 4. Carvedilol 3.125 mg b.i.d. 5. Niacin daily. 6. Multivitamins. 7. Metformin 1000 mg p.o. b.i.d. 8. Lisinopril 20 mg a day. 9. Tricor 150 mg a day. 10. Tradjenta 5 mg a day. 11. Glipizide 10 a day. 12. Zantac 150 mg twice a day. 13. Potassium chloride 10 mEq a day. 14. Zocor 40 mg nightly. ALLERGIES: PENICILLINS. REVIEW OF SYSTEMS: A 12-point review of systems is done and was found to be negative other than stated in the history of present illness. PHYSICAL EXAMINATION: VITAL SIGNS: Temperature 98.3, pulse 82, respiratory rate 20, saturating 94% on room air, blood pressure 171/98. GENERAL: Awake, alert, and oriented x3, in no distress. HEENT: Normocephalic and atraumatic. NECK: Supple. LUNGS: Clear. CARDIOVASCULAR: S1 and S2. No S3 or S4. No murmurs. ABDOMEN: Soft. Positive bowel sounds. EXTREMITIES: No edema. SKIN: Warm and dry. LABORATORY DATA: Laboratory work was reviewed. CBC with a white count of 19 and increasing. Hemoglobin of 13.3, hematocrit 39.7, platelets 222. Coags were reviewed. ABG was reviewed. Chemistry was reviewed. Potassium was normal. BUN and creatinine were normal. GFR of 67. Calcium 8.8, total bilirubin 0.5. AST, ALT, alkaline phosphatase are normal. BNP was 32. Troponin I was 0.04, then 0.24, then 0.25. CT of the abdomen and pelvis was reviewed. ASSESSMENT: 1. Preoperative evaluation. 2. Morbid obesity. 3. Type 2 diabetes. 4. Hypertension. PLAN: At this time, we will be prohibited to do any risk stratification with the heart catheterization given his hematuria and his possible needs for emergent intervention on his kidneys. His white count continues to increase. At this time, we get an echocardiogram to assess LV function and valvular structures. If these were normal, he may proceed with an urgent . If this is less urgent and can be treated with antibiotics, he may need a stress test as an outpatient before he leaves the hospital for further evaluation. He tells me he is not interested in anything right now, he wants to wait for surgery. I doubt that he is interested in anything done cardiac [place]. We will try to talk to him again tomorrow after results of echocardiogram. Thank you for allowing me to participate in the care of your patient. We will follow. Job ID: [id number]
--- NOTE | 2018-03-26 09:03 | PRG ---
DATE OF SERVICE: 03/26/2018 SUBJECTIVE: The patient without complaints, doing well. Echocardiogram pending. OBJECTIVE: VITAL SIGNS: Stable. He is afebrile. Urine output 1800 mL of yellow urine with minimal sediment. ABDOMEN: Morbidly obese, protuberant. No CVA tenderness. : Urena catheter as above. PERTINENT LABORATORY DATA: White count has decreased from 19 to 11. Hemoglobin stable, platelets 212. No significant left shift or bandemia. Coagulation profile within normal limits. BUN 27, potassium 4.0, creatinine is 1.0, has normalized. Urine culture, blood culture positive for E. coli, pansensitive. IMPRESSION AND PLAN: Mr. Mancia is a 57-year-old morbidly obese male with past medical history of: 1. Diabetes. 2. History of gout. 3. History of renal lithiasis, significant bilateral stone burden with no evidence of hydronephrosis. 4. History of mild fossa navicularis distal penile urethral stricture, Urena catheter placed by on admission with some resistance, initial PVR 300 mL. 5. Escherichia coli urosepsis. 6. Elevated troponin on admission. The patient is currently on Rocephin. His septic parameters have nearly resolved, doing well, and acute kidney injury, resolved. The patient has been placed on allopurinol for history of gout, Urocit-K based on urine pH. He has significant bilateral stone burden most likely may have combination of calcium and uric acid stone moiety, therefore, Urocit-K initiated. A repeat UA obtained today to check his urine pH for appropriate alkalinization with Urocit-K. Cardiology workup is in progress, echocardiogram is likely scheduled for today. I anticipate that the patient may be able to be discharged pending cardiac workup, which I would initiate a voiding trial prior to discharge. Due to sepsis, he will require Levaquin for course of four weeks. Elective treatment with restaging CT of his stones is advised. The patient informed regarding my plan of care. Job ID: [id number]
--- NOTE | 2018-03-26 09:55 | PDOC.PN ---
- Subjective Encounter Start Date: 03/26/18 Encounter Start Time: 08:40 Patient seen and examined. No new complaints. No overnight events - Objective Resuscitation Status - Order Detail: 03/23/18 09:39 Resuscitation Status Routine Resuscitation Status: FULL: Full Resuscitation MAR Reviewed: Yes Vital Signs & Weight: Vital Signs (12 hours) Temp Pulse Resp BP Pulse Ox 03/26/18 08:01 97.2 F L 83 20 159/88 H 94 L 03/26/18 02:15 94 L Weight Weight 339 lb 1.135 oz Most Recent Monitor Data Heart Rate from ECG 85 NIBP 141/88 NIBP BP-Mean 105 Respiration from ECG 19 SpO2 97 I&O: 03/25/18 03/26/18 03/27/18 06:59 06:59 06:59 Intake Total 4058 160 Output Total 4805 1800 Balance -277 -6794 Result Diagrams: 03/26/18 05:20 03/26/18 05:20 Additional Labs: Accuchecks 03/26/18 03/25/18 03/25/18 05:15 19:32 16:12 POC Glucose 106 109 156 H 03/25/18 12:05 POC Glucose 149 H Phys Exam - Physical Examination Constitutional: NAD HEENT: PERRLA, moist MMs, sclera anicteric Neck: no JVD, supple central line Respiratory: no wheezing, no rales, no rhonchi Cardiovascular: RRR, no significant murmur, no rub Gastrointestinal: soft, non-tender, no distention, positive bowel sounds Musculoskeletal: no edema, pulses present Neurological: non-focal, normal sensation, moves all 4 limbs Lymphatic: no nodes Psychiatric: normal affect, A&O x 3 Skin: no rash, normal turgor Dx/Plan (1) Acute kidney failure Status: Acute (2) Acute pyelonephritis Code(s): N10 - ACUTE PYELONEPHRITIS Status: Acute (3) Bacteremia, escherichia coli Code(s): R78.81 - BACTEREMIA Status: Acute (4) Demand ischemia of myocardium Code(s): I24.8 - OTHER FORMS OF ACUTE ISCHEMIC HEART DISEASE Status: Acute (5) Diabetes type 2, controlled Code(s): E11.9 - TYPE 2 DIABETES MELLITUS WITHOUT COMPLICATIONS Status: Chronic (6) Dyslipidemia Code(s): E78.5 - HYPERLIPIDEMIA, UNSPECIFIED Status: Chronic (7) Fatty liver Code(s): K76.0 - FATTY (CHANGE OF) LIVER, NOT ELSEWHERE CLASSIFIED Status: Chronic (8) GERD (gastroesophageal reflux disease) Code(s): K21.9 - GASTRO-ESOPHAGEAL REFLUX DISEASE WITHOUT ESOPHAGITIS Status: Chronic (9) Hypertension Code(s): I10 - ESSENTIAL (PRIMARY) HYPERTENSION Status: Chronic (10) Lactic acidosis Code(s): E87.2 - ACIDOSIS Status: Acute (11) Nephrolithiasis Status: Chronic (12) Sepsis with acute organ dysfunction Code(s): A41.9 - SEPSIS, UNSPECIFIED ORGANISM; R65.20 - SEVERE SEPSIS WITHOUT SEPTIC SHOCK Status: Acute (13) Septic shock Code(s): A41.9 - SEPSIS, UNSPECIFIED ORGANISM; R65.21 - SEVERE SEPSIS WITH SEPTIC SHOCK Status: Resolved - Plan cont current plan of care, continue antibiotics * medication reviewed as below * symptomatic treatment * will dc alvarez today * tomorrow will discharge on oral levaquin * ambulate. Review of Systems - Review of Systems ENT: negative: Ear Pain, Ear Discharge, Nose Pain, Nose Discharge, Nose Congestion, Mouth Pain, Mouth Swelling, Throat Pain, Throat Swelling, Other Respiratory: negative: Cough, Dry, Shortness of Breath, Hemoptysis, SOB with Excertion, Pleuritic Pain, Sputum, Wheezing Cardiovascular: negative: chest pain, palpitations, orthopnea, paroxysmal nocturnal dyspnea, edema, light headedness, other Gastrointestinal: negative: Nausea, Vomiting, Abdominal Pain, Diarrhea, Constipation, Melena, Hematochezia, Other Genitourinary: negative: Dysuria, Frequency, Incontinence, Hematuria, Retention , Other Musculoskeletal: negative: Neck Pain, Shoulder Pain, Arm Pain, Back Pain, Hand Pain, Leg Pain, Foot Pain, Other Skin: negative: Rash, Lesions, Pepito, Bruising, Other - Medications/Allergies Allergies/Adverse Reactions: Allergies Allergy/AdvReac Type Severity Reaction Status Date / Time Penicillins Allergy Hives Verified 03/23/18 16:33 Medications: Current Medications Acetaminophen (Tylenol) 650 mg PO Q4H PRN PRN Reason: Headache/Fever/Mild Pain (1-3) Last Admin: 03/25/18 20:24 Dose: 650 mg Hydrocodone Bitart/Acetaminophen ([place] 5/325) 1 tab PO Q4H PRN PRN Reason: Moderate Pain (4-6) Last Admin: 03/24/18 23:55 Dose: 1 tab Albuterol/Ipratropium (Duoneb) 3 ml NEB Q6H PRN PRN Reason: SOB &/or Wheezing Allopurinol (Zyloprim) 100 mg PO DAILY [facility] Last Admin: 03/26/18 08:02 Dose: 100 mg Artificial Tears (Tears Naturale) 2 drop EA EYE PRN PRN PRN Reason: Dry Eyes Bisacodyl (Dulcolax) 10 mg PO DAILYPRN PRN PRN Reason: Constipation Bisacodyl (Dulcolax) 10 mg [place] DAILYPRN PRN PRN Reason: Constipation Dextrose/Water (Dextrose 50%) 25 gm SLOW IVP PRN PRN PRN Reason: Hypoglycemia Famotidine (Pepcid) 20 mg PO DAILY [facility] Last Admin: 03/26/18 08:02 Dose: 20 mg Fish Oil (Fish Oil) 1,000 mg PO DAILY [facility] Last Admin: 03/26/18 08:02 Dose: 1,000 mg Glucagon (Glucagon) 1 mg IM PRN PRN PRN Reason: Hypoglycemia Guaifenesin (Robitussin Sf) 200 mg PO Q4H PRN PRN Reason: Cough Last Admin: 03/26/18 04:47 Dose: 200 mg Hydralazine HCl (Apresoline) 10 mg SLOW IVP Q4H PRN PRN Reason: SBP > 180 and HR < 70 Dextrose/Water (D5w) 1,000 mls @ 0 mls/hr IV .Q0M PRN PRN Reason: Hypoglycemia Ceftriaxone Sodium 2 gm/ (Sodium Chloride) 100 mls @ 100 mls/hr IVPB 1400 [facility] Last Admin: 03/25/18 15:15 Dose: 100 mls Insulin Human Lispro (Humalog) 0 units SC .MODERATE SLIDING SC PRN PRN Reason: Moderate Correctional Scale Last Admin: 03/24/18 12:31 Dose: 4 unit Insulin Human Lispro (Humalog) 0 units SC .BEDTIME SLIDING SC PRN PRN Reason: Bedtime Correctional Scale Last Admin: 03/23/18 20:21 Dose: 2 unit Loperamide HCl (Imodium) 2 mg PO PRN PRN PRN Reason: Diarrhea/Loose Stools Loratadine (Claritin) 10 mg PO DAILYPRN PRN PRN Reason: Sinus Symptoms Mineral Oil/White Petrolatum (Eucerin Cream) 0 gm TOP BIDPRN PRN PRN Reason: Dry Skin Morphine Sulfate (Morphine) 2 mg SLOW IVP Q4H PRN PRN Reason: Severe Pain (7-10) Ondansetron HCl (Zofran Odt) 4 mg PO Q6H PRN PRN Reason: Nausea/Vomiting Ondansetron HCl (Zofran) 4 mg IVP Q6H PRN PRN Reason: Nausea/Vomiting Potassium Citrate (Urocit K) 10 meq PO TID-[facility] Last Admin: 03/26/18 08:01 Dose: 10 meq Saccharomyces Boulardii (Florastor) 250 mg PO DAILY [facility] Last Admin: 03/26/18 08:02 Dose: 250 mg Senna/Docusate Sodium (Senokot S) 2 tab PO BID PRN PRN Reason: Constipation Sodium Chloride ([place] Nasal [place] 0.65%) 0 ml EA NARE QIDPRN PRN PRN Reason: Nasal Congestion Tamsulosin HCl (Flomax) 0.4 mg PO DAILY [facility] Last Admin: 03/26/18 08:02 Dose: 0.4 mg Throat Lozenges (Cepastat Lozenges) 1 toribio PO Q2H PRN PRN Reason: Sore Throat Zolpidem Tartrate (Ambien) 5 mg PO HSPRN PRN PRN Reason: Insomnia Last Admin: 03/25/18 20:24 Dose: 5 mg
[2018-03-26 10:12] LABS: Bilirubin Negative (Negative); Blood, Urine Large (Negative); Clarity CLOUDY (Clear); Glucose, Urine (Dipstick) Negative (Negative); Leukocyte Small (Negative); Nitrite Negative (Negative); Protein, Urine (Dipstick) 30 mg/dL (Neg-Trace); Specific Gravity, Urine 1.011 (1.002-1.036); Urobilinogen 0.2 mg/dL (0.2-1.0)
[2018-03-26 10:15] LABS: Bacteria/HPF None Seen HPF (None Seen); Hyaline Casts/LPF 7-10 HYALINE CAST LPF (0-3 Hyaline); Pathc Cast-AUWi Flag 1.16 (0-2.49); RBC/HPF GREATER THAN 50-TNTC HPF (0-3); Squamous Epithelial 0-3 HPF (0-3)
[2018-03-26 10:35] LABS: Renal Epithelial None Seen HPF (0-3); Transitional Epithelial NONE SEEN HPF (0-3)
[2018-03-26] MEDS: cefTRIAXone\\ROCEPHIN 2 GM in Sodium Chloride 0.9% 100 ML IVPB SCH (13:54)
--- NOTE | 2018-03-26 18:28 | PDOC.CTH ---
Cardiology Progress Note - Subjective No new issues. - Objective Vital Signs Temp Pulse Resp BP Pulse Ox 03/26/18 08:01 97.2 F L 83 20 159/88 H 94 L 03/26/18 08:00 94 L Weight 339 lb 1.135 oz 03/25/18 03/26/18 03/27/18 06:59 06:59 06:59 Intake Total 4058 160 Output Total 4805 1800 Balance -747 -1640 - Physical Examination General/Neuro: alert & oriented x3, NAD Neck: no JVD present Lungs: CTA, unlabored respirations Heart: RRR Abdomen: NT/ND Extremities: + edema B (1+) - Labs Result Diagrams: 03/26/18 05:20 03/26/18 05:20 Troponin/CKMB CK-MB (CK-2) 1.9 ng/mL (0-6.6) 03/23/18 06:37 Troponin I 0.251 ng/mL (< 0.028) H 03/23/18 12:38 - Assessment/Plan 1. preoperative evaluation. 2. Chronic SOB 3. Obesity 4. UTI sepsis 5. Renal stones. PLAN: - Electrocardiogram is very poor quality as his windows are not good due to body habitus. - His LV function seems normal on some views but cannot fully evaluate with echo alone. - Will need to do Nuclear stress testing to further risk stratify. - I offered doing this tomorrow morning and he declined. - he wants to do it as an outpatient. Will try to schedule in next few weeks. If his surgery becomes more emergent or bleeding is significant then may proceed as I do not see any prohibitive issues at this time. - Will sign off for now. Please call with any questions.
[2018-03-26] MEDS: Acetaminophen 325 MG TAB PO PRN (19:20)
[2018-03-27 07:54] VITALS: BP 148/78; TEMP 97.9
[2018-03-27] MEDS: Allopurinol 100 MG TAB PO SCH (08:03)
[2018-03-27] MEDS: Saccharomyces boulardii 250 MG CAP PO SCH (08:04)
[2018-03-27] MEDS: Tamsulosin HCl 0.4 MG CAP PO SCH (08:04)
[2018-03-27] MEDS: Fish Oil 1,000 MG CAP PO SCH (08:04)
[2018-03-27] MEDS: Potassium Citrate 10 MEQ TAB PO SCH ×2 (08:04→11:26)
[2018-03-27] MEDS: Famotidine 20 MG TAB PO SCH (08:04)
--- NOTE | 2018-03-27 08:59 | PRG ---
DATE OF SERVICE: 03/27/2018 SUBJECTIVE: The patient feels well. Denies nausea, vomiting, or chills. He wants to go home. OBJECTIVE: VITAL SIGNS: Stable. He is afebrile. I's and O's i cahrt yellow urine with no significant sediment. ABDOMEN: Soft, nontender, and nondistended. PERTINENT LABORATORY DATA: No new labs today as they were normalized yesterday. Yesterday, white count was 11. No significant shift or bandemia. Coagulation profiles within normal limits. Creatinine has normalized to 1.0, well within normal limits. Urine culture, blood culture demonstrating E coli, pansensitive on Rocephin since admission. IMPRESSION AND PLAN: Mr. Mancia is a 57-year-old morbidly obese male with history of; 1. Diabetes. 2. History of gout. 3. History of bilateral renal lithiasis. 4. History of mild fossa navicularis, distal penile urethral stricture, in which Urena catheter was able to be placed by with some resistance, however, passed uneventfully with initial PVR 300 mL. 5. Elevated troponins on admission. Cardiology consultation appreciated. Plan on outpatient stress test as echocardiogram was suboptimal due to body habitus. 6. Escherichia coli urosepsis, resolved. RECOMMENDATIONS: Due to presenting Escherichia coli urosepsis, I recommend Levaquin for 3 more weeks of 500 mg one p.o. daily. The patient should continue his Flomax 0.4 mg one p.o. daily, allopurinol is advised due to history of gout. His urine pH demonstrates 5.5 on admission with a history of gout, I would recommend he continue his Urocit-K. He will follow up with me next week, appointment in chart. He will also follow up with Cardiology as Service advised to obtain outpatient stress test, in which elective stone treatment will be advised, pending final cardiac clearance. I do plan restaging CT at a later date. Addendum. Postvoid residual 50 mL. Patient discharged without indwelling Urena catheter Job ID: [id number] [facility]
--- NOTE | 2018-03-27 09:22 | PDOC.PN ---
- Subjective Encounter Start Date: 03/27/18 Encounter Start Time: 08:30 Patient seen and examined. No new complaints. No overnight events - Objective Resuscitation Status - Order Detail: 03/23/18 09:39 Resuscitation Status Routine Resuscitation Status: FULL: Full Resuscitation MAR Reviewed: Yes Vital Signs & Weight: Vital Signs (12 hours) Temp Pulse Resp BP Pulse Ox 03/27/18 07:53 97.9 F 85 20 148/78 H 95 Weight Weight 339 lb 1.135 oz Most Recent Monitor Data Heart Rate from ECG 85 NIBP 141/88 NIBP BP-Mean 105 Respiration from ECG 19 SpO2 97 I&O: 03/26/18 03/27/18 03/28/18 06:59 06:59 06:59 Intake Total 160 1000 Output Total 1800 1450 Balance -1640 -450 Result Diagrams: 03/26/18 05:20 03/26/18 05:20 Additional Labs: Accuchecks 03/27/18 03/26/18 03/26/18 04:43 20:05 16:54 POC Glucose 111 H 138 H 103 03/26/18 11:32 POC Glucose 100 Phys Exam - Physical Examination Constitutional: NAD HEENT: PERRLA, moist MMs, sclera anicteric Neck: no JVD, supple Respiratory: no wheezing, no rales, no rhonchi Cardiovascular: RRR, no significant murmur, no rub Gastrointestinal: soft, non-tender, no distention, positive bowel sounds Musculoskeletal: no edema, pulses present Neurological: non-focal, normal sensation, moves all 4 limbs Psychiatric: normal affect, A&O x 3 Skin: no rash, normal turgor Dx/Plan (1) Acute kidney failure Status: Acute (2) Acute pyelonephritis Code(s): N10 - ACUTE PYELONEPHRITIS Status: Acute (3) Bacteremia, escherichia coli Code(s): R78.81 - BACTEREMIA Status: Acute (4) Demand ischemia of myocardium Code(s): I24.8 - OTHER FORMS OF ACUTE ISCHEMIC HEART DISEASE Status: Acute (5) Diabetes type 2, controlled Code(s): E11.9 - TYPE 2 DIABETES MELLITUS WITHOUT COMPLICATIONS Status: Chronic (6) Dyslipidemia Code(s): E78.5 - HYPERLIPIDEMIA, UNSPECIFIED Status: Chronic (7) Fatty liver Code(s): K76.0 - FATTY (CHANGE OF) LIVER, NOT ELSEWHERE CLASSIFIED Status: Chronic (8) GERD (gastroesophageal reflux disease) Code(s): K21.9 - GASTRO-ESOPHAGEAL REFLUX DISEASE WITHOUT ESOPHAGITIS Status: Chronic (9) Hypertension Code(s): I10 - ESSENTIAL (PRIMARY) HYPERTENSION Status: Chronic (10) Lactic acidosis Code(s): E87.2 - ACIDOSIS Status: Acute (11) Nephrolithiasis Status: Chronic (12) Sepsis with acute organ dysfunction Code(s): A41.9 - SEPSIS, UNSPECIFIED ORGANISM; R65.20 - SEVERE SEPSIS WITHOUT SEPTIC SHOCK Status: Acute (13) Septic shock Code(s): A41.9 - SEPSIS, UNSPECIFIED ORGANISM; R65.21 - SEVERE SEPSIS WITH SEPTIC SHOCK Status: Resolved - Plan cont current plan of care, continue antibiotics * medication reviewed as below * symptomatic treatment * see discharge tanisha. Review of Systems - Review of Systems ENT: negative: Ear Pain, Ear Discharge, Nose Pain, Nose Discharge, Nose Congestion, Mouth Pain, Mouth Swelling, Throat Pain, Throat Swelling, Other Respiratory: negative: Cough, Dry, Shortness of Breath, Hemoptysis, SOB with Excertion, Pleuritic Pain, Sputum, Wheezing Cardiovascular: negative: chest pain, palpitations, orthopnea, paroxysmal nocturnal dyspnea, edema, light headedness, other Gastrointestinal: negative: Nausea, Vomiting, Abdominal Pain, Diarrhea, Constipation, Melena, Hematochezia, Other Genitourinary: negative: Dysuria, Frequency, Incontinence, Hematuria, Retention , Other Musculoskeletal: negative: Neck Pain, Shoulder Pain, Arm Pain, Back Pain, Hand Pain, Leg Pain, Foot Pain, Other - Medications/Allergies Allergies/Adverse Reactions: Allergies Allergy/AdvReac Type Severity Reaction Status Date / Time Penicillins Allergy Hives Verified 03/23/18 16:33 Medications: Current Medications Acetaminophen (Tylenol) 650 mg PO Q4H PRN PRN Reason: Headache/Fever/Mild Pain (1-3) Last Admin: 03/26/18 19:20 Dose: 650 mg Hydrocodone Bitart/Acetaminophen ([place] 5/325) 1 tab PO Q4H PRN PRN Reason: Moderate Pain (4-6) Last Admin: 03/24/18 23:55 Dose: 1 tab Albuterol/Ipratropium (Duoneb) 3 ml NEB Q6H PRN PRN Reason: SOB &/or Wheezing Allopurinol (Zyloprim) 100 mg PO DAILY [facility] Last Admin: 03/27/18 08:03 Dose: 100 mg Artificial Tears (Tears Naturale) 2 drop EA EYE PRN PRN PRN Reason: Dry Eyes Bisacodyl (Dulcolax) 10 mg PO DAILYPRN PRN PRN Reason: Constipation Bisacodyl (Dulcolax) 10 mg [place] DAILYPRN PRN PRN Reason: Constipation Dextrose/Water (Dextrose 50%) 25 gm SLOW IVP PRN PRN PRN Reason: Hypoglycemia Famotidine (Pepcid) 20 mg PO DAILY [facility] Last Admin: 03/27/18 08:04 Dose: 20 mg Fish Oil (Fish Oil) 1,000 mg PO DAILY [facility] Last Admin: 03/27/18 08:04 Dose: 1,000 mg Glucagon (Glucagon) 1 mg IM PRN PRN PRN Reason: Hypoglycemia Guaifenesin (Robitussin Sf) 200 mg PO Q4H PRN PRN Reason: Cough Last Admin: 03/26/18 04:47 Dose: 200 mg Hydralazine HCl (Apresoline) 10 mg SLOW IVP Q4H PRN PRN Reason: SBP > 180 and HR < 70 Dextrose/Water (D5w) 1,000 mls @ 0 mls/hr IV .Q0M PRN PRN Reason: Hypoglycemia Ceftriaxone Sodium 2 gm/ (Sodium Chloride) 100 mls @ 100 mls/hr IVPB 1400 [facility] Last Admin: 03/26/18 13:54 Dose: 100 mls Insulin Human Lispro (Humalog) 0 units SC .MODERATE SLIDING SC PRN PRN Reason: Moderate Correctional Scale Last Admin: 03/24/18 12:31 Dose: 4 unit Insulin Human Lispro (Humalog) 0 units SC .BEDTIME SLIDING SC PRN PRN Reason: Bedtime Correctional Scale Last Admin: 03/23/18 20:21 Dose: 2 unit Loperamide HCl (Imodium) 2 mg PO PRN PRN PRN Reason: Diarrhea/Loose Stools Loratadine (Claritin) 10 mg PO DAILYPRN PRN PRN Reason: Sinus Symptoms Mineral Oil/White Petrolatum (Eucerin Cream) 0 gm TOP BIDPRN PRN PRN Reason: Dry Skin Morphine Sulfate (Morphine) 2 mg SLOW IVP Q4H PRN PRN Reason: Severe Pain (7-10) Ondansetron HCl (Zofran Odt) 4 mg PO Q6H PRN PRN Reason: Nausea/Vomiting Ondansetron HCl (Zofran) 4 mg IVP Q6H PRN PRN Reason: Nausea/Vomiting Potassium Citrate (Urocit K) 10 meq PO TID-[facility] Last Admin: 03/27/18 08:04 Dose: 10 meq Saccharomyces Boulardii (Florastor) 250 mg PO DAILY [facility] Last Admin: 03/27/18 08:04 Dose: 250 mg Senna/Docusate Sodium (Senokot S) 2 tab PO BID PRN PRN Reason: Constipation Sodium Chloride ([place] Nasal [place] 0.65%) 0 ml EA NARE QIDPRN PRN PRN Reason: Nasal Congestion Tamsulosin HCl (Flomax) 0.4 mg PO DAILY [facility] Last Admin: 03/27/18 08:04 Dose: 0.4 mg Throat Lozenges (Cepastat Lozenges) 1 toribio PO Q2H PRN PRN Reason: Sore Throat Zolpidem Tartrate (Ambien) 5 mg PO HSPRN PRN PRN Reason: Insomnia Last Admin: 03/25/18 20:24 Dose: 5 mg
--- NOTE | 2018-03-27 10:50 | DIS ---
DATE OF ADMISSION: 03/23/2018 DATE OF DISCHARGE: 03/27/2018 PRIMARY CARE PHYSICIAN: Dr. Engle. DISCHARGE DISPOSITION: Home. PRIMARY DISCHARGE DIAGNOSES: 1. Acute kidney failure, improved. 2. Acute pyelonephritis, improved. 3. Bacteremia due to Escherichia coli. 4. Demand ischemia of myocardium. 5. Sepsis with acute organ dysfunction. 6. Lactic acidosis. 7. Septic shock on admission, resolved. SECONDARY DISCHARGE DIAGNOSES: 1. Nephrolithiasis. 2. Hypertension. 3. Gastroesophageal reflux disease. 4. Fatty liver. 5. Dyslipidemia. 6. Diabetes, type 2. 7. Obesity with BMI of 46. PRIMARY PROCEDURE/OPERATION: Central line. RADIOLOGICAL INVESTIGATION: Chest x-ray, normal. Abdomen and pelvis CT scan showed pyelonephritis and nephrolithiasis. Echocardiography showed normal EF and diastolic dysfunction. LABORATORY DATA: Significant labs; WBC 11.9, hemoglobin 13.8, platelets 212. INR 1.1. D-dimer 2.33. Sodium 138, creatinine 1.07, and calcium 9.3. Blood culture positive for E coli. Urine culture positive for E coli. DISCHARGE MEDICATIONS: 1. Levaquin 500 mg p.o. daily for 3 more weeks. 2. Urocit-K 10 mEq t.i.d. 3. Florastor 250 mg p.o. daily. 4. Flomax 0.4 mg p.o. daily. 5. Allopurinol 100 mg p.o. daily. 6. Tramadol 50 mg p.r.n. 7. Niacin 125 mg daily. 8. Metformin 1000 mg p.o. b.i.d. 9. Lasix 20 mg daily. 10. Fish oil 1000 mg p.o. daily. 11. Coreg 3.125 mg p.o. b.i.d. CONTRAINDICATION: None. CODE STATUS: Full code. INPATIENT STEEL ERECTOR: Dr. Lagunas was following while in the hospital. Dr. Garcia was following because the patient was admitted in the ICU. Dr. Huerta was consulted for preoperative clearance. TEST RESULTS PENDING ON DISCHARGE: None. ALLERGIES: PENICILLIN. DISCHARGE PLAN: Post hospital, the patient will follow up with Dr. Lagunas on 04/03/2018 at 9:30 a.m. HOSPITAL COURSE: This is a 57-year-old male, who was admitted by me. Please see my HPI for further details. On admission, he was having septic shock. He required ICU admission. He had a central line placed. He required Levophed drip. His source of infection was acute pyelonephritis, and he also had underlying nephrolithiasis. Dr. Lagunas was consulted while in the hospital. Dr. Garcia was following in CCU. Subsequently, upon stabilization, this patient was transferred to medical floor. We continued with IV antibiotic therapy with Rocephin, Levaquin, and initially vancomycin, but vancomycin was discontinued after culture result. Subsequently, we also discontinued Levaquin and treated him with Rocephin only. Upon discharge, we changed to levofloxacin for another 3 weeks as per Urology recommendation. Urology also recommended to continue Flomax, Urocit, and allopurinol. The patient is doing very well. He is ambulatory, tolerating p.o. well. Cardiology saw him for preoperative clearance and they will decide about more testing on an outpatient basis. The patient will follow up with Urology for further treatment for nephrolithiasis. The patient was seen and examined at bedside today. Please see my progress note from today for further detail. Job ID: [id number]
--- NOTE | 2018-03-29 14:21 | EKG ---
Test Reason : Blood Pressure : / mmHG Vent. Rate : 140 BPM Atrial Rate : 140 BPM P-R Int : 122 ms QRS Dur : 088 ms QT Int : 294 ms P-R-T Axes : 034 087 011 degrees QTc Int : 448 ms Sinus tachycardia Otherwise normal ECG Confirmed by JIE KELLOGG MD ([id number]), makeup editor GISELA CRUZ ([id number]) on 03/29/2018 2:21:21 PM Referred By: Confirmed By:JIE KELLOGG MD
== END 2018-03-27 11:31 | disposition home or self-care (01) | DRG 871 ==
LOC: ERS 06:15 → ERHOLD 09:24 → CCU 15:24 → T4-B 03-24 20:41
PROVIDERS: ADMIT Internal Medicine; ATTEND Internal Medicine
PROC: B246ZZZ Ultrasonography of Right and Left Heart (ICD-10-PCS; principal; 2018-03-26)
DX: A41.51 Sepsis due to Escherichia coli [E. coli] (principal); R65.21 Severe sepsis with septic shock; N10 Acute pyelonephritis; N17.9 Acute kidney failure, unspecified; I24.8 Other forms of acute ischemic heart disease; Z68.42 Body mass index [BMI] 45.0-49.9, adult; E87.2 Acidosis; I10 Essential (primary) hypertension; E11.9 Type 2 diabetes mellitus without complications; E78.5 Hyperlipidemia, unspecified; E66.01 Morbid (severe) obesity due to excess calories; M10.9 Gout, unspecified; K76.0 Fatty (change of) liver, not elsewhere classified; F17.220 Nicotine dependence, chewing tobacco, uncomplicated; Z79.84 Long term (current) use of oral hypoglycemic drugs; Z79.01 Long term (current) use of anticoagulants; Z88.0 Allergy status to penicillin; N20.0 Calculus of kidney; K21.9 Gastro-esophageal reflux disease without esophagitis; R62.7 Adult failure to thrive; Z86.73 Personal history of transient ischemic attack (TIA), and cerebral infarction without residual deficits
CPT/HCPCS: 36415; 36416; 36556; 51702; 71045; 74176; 80048; 80053; 81001; 81003; 81015; 82553; 82805; 83605; 83880; 84484; 84550; 85025; 85379; 85610; 85730; 87040; 87077; 87086; 87149; 87186; 93005; 93306; 94640; 94760; 96361; 96365; 96372; 96375; G8978-GP-CJ; G8979-GP-CI; J0692; J0696; J1100; J1650; J1956; J2060; J3010; J3370; J7050; J7620

== ENCOUNTER 2018-06-05 07:01 | Outpatient (CLI) | payer MEDICARE ==
--- NOTE | 2018-06-05 09:58 | CT ---
ABDOMEN CT WITHOUT CONTRAST PELVIC CT WITHOUT CONTRAST: HISTORY: Bilateral renal calculi. Extreme pain when urinating. COMPARISON: 03/23/2018. FINDINGS: ABDOMEN CT: Lung bases are clear. Heart size is normal. No pericardial effusion. The descending thoracic aorta and abdominal aorta have a normal caliber. No periaortic fat stranding. Symmetric attenuation of t he psoas muscles. Unremarkable gallbladder. Diffuse hypoattenuation of the liver due to hepatic steatosis. Limited evaluation of the solid organ s due to lack of IV contrast. Grossly, no solid organ abnormality. No gastrohepatic, retrocrural, or periportal lymphadenopathy. Incidental small hiatal hernia is note d. No mesenteric mass, free air, or free fluid. There are a few scattered nonspecific mesenteric lymph n odes. Ventral abdominal wall hernia containing mesenteric fat. A 7 mm calculus in the left renal pelvis. A 19 mm x 7 mm calculus in the right renal pelvis. Additi onal bilateral intrarenal calculi are again noted. The previously measured 1.7 calculus in the lower pole of the right kidney is essentially unchanged. Bilaterally, there is no evidence of hydronephro sis or significant perinephric fat stranding. Bilateral ureters have a normal caliber. No hydrouret er, periureteral fat stranding, or ureterolithiasis. A small hiatal hernia is noted. Limited evaluation of the alimentary canal by lack of oral contrast. Normal-caliber small bowel loops. Ileocecal junction is normal. Normal-caliber appendix. Scatter ed fecal material in a nondistended, nondilated colon. There is evidence of diverticulosis, without evidence of diverticulitis. CT PELVIS: No mass, lymphadenopathy, free air, or free fluid. There is an oblong calcification at the base of the penis which may represent a large ureteral calcul us measuring 1.8 x 0.9 cm. This calculus was not appreciated on the previous examination. No lytic or blastic lesions in the osseous structures. IMPRESSION: 1. Bilateral nonobstructing intrarenal calculi. 2. Hypoattenuation of the liver due to hepatic steatosis. 3. Diverticulosis, without evidence of diverticulitis. 4. Normal-caliber appendix. 5. Bilateral intrarenal calculi, similar to the previous examination. No obstructive uropathy. 6. Large calculus, presumed to be in the penile urethra as described above. Results of the study discussed with Dr. Lagunas 06/05/2018 at 8:32 a.m. CODE CR POS: NADEGE
== END 2018-06-05 07:02 | disposition home or self-care (01) ==
LOC: BICCT 07:01
PROVIDERS: ATTEND Urology
DX: N20.0 Calculus of kidney (principal); K76.0 Fatty (change of) liver, not elsewhere classified; K57.90 Diverticulosis of intestine, part unspecified, without perforation or abscess without bleeding
CPT/HCPCS: 36415; 74176; 80048; 81001; 82365; 83970; 84550; 87086

== ENCOUNTER 2018-09-29 05:14 | Outpatient (CLI) | payer MEDICARE ==
[2018-09-29 09:56] LABS: Hemoglobin 16.9 g/dL (14.0-18.0); Mean Corpuscular HGB CONC 33.5 g/dL (32.0-36.0); Mean Corpuscular Hemoglobin 29.4 pg (27.0-31.0); Mean Corpuscular Volume 87.8 fL (78.0-98.0); Mean Platelet Volume 8.5 fL (7.4-10.4); Platelet Count 231 thou/uL (130-400); RBC Distribution Width 12.9 % (11.5-14.5); Red Blood Cell (RBC) Count 5.73 mill/uL (4.70-6.10)
[2018-09-29 09:57] LABS: Bilirubin Negative (Negative); Blood, Urine Small (Negative); Clarity CLEAR (Clear); Glucose, Urine (Dipstick) Negative (Negative); Leukocyte Trace (Negative); Nitrite Negative (Negative); Protein, Urine (Dipstick) Negative (Neg-Trace); Specific Gravity, Urine 1.006 (1.002-1.036); Urobilinogen 0.2 mg/dL (0.2-1.0); pH, Urine 6.5 (5.0-9.0)
[2018-09-29 10:00] LABS: Bacteria/HPF None Seen HPF (None Seen); Hyaline Casts/LPF 0-3 HYALINE CAST LPF (0-3 Hyaline); Pathc Cast-AUWi Flag 0.13 (0-2.49); Squamous Epithelial None Seen HPF (0-3)
[2018-09-29 10:15] LABS: Anion Gap 16 mmol/L (10-20); BUN (Urea Nitrogen) 16 mg/dL (8.4-25.7); Calc. Creatinine Clearance 0 mL/min (70-130); Calcium 10.5 mg/dL (7.8-10.44); Carbon Dioxide 24 mmol/L (22-29); Chloride 103 mmol/L (98-107); Estimated GFR-MDRD 61; Glucose 141 mg/dL (70-105); Potassium 4.6 mmol/L (3.5-5.1); Sodium 138 mmol/L (136-145)
[2018-09-29 10:22] LABS: PTT 26.2 SEC (22.9-36.1)
--- NOTE | 2018-10-03 21:05 | EKG ---
Test Reason : Blood Pressure : / mmHG Vent. Rate : 078 BPM Atrial Rate : 078 BPM P-R Int : 142 ms QRS Dur : 094 ms QT Int : 362 ms P-R-T Axes : 029 089 029 degrees QTc Int : 412 ms Normal sinus rhythm Normal ECG When compared with ECG of 23-MAR-2018 06:32, Vent. rate has decreased BY 62 BPM Confirmed by Lesa TINSLEY ([id number]) on 10/03/2018 9:05:20 PM Referred By: BRAD Confirmed By:Lesa TINSLEY
== END 2018-09-29 05:15 | disposition home or self-care (01) ==
LOC: LABBT 05:14
PROVIDERS: ATTEND Urology
DX: Z01.818 Encounter for other preprocedural examination (principal); N20.0 Calculus of kidney
CPT/HCPCS: 80048; 81001; 85027; 85610; 85730; 87077; 87086; 87186; 93005; 93010

== ENCOUNTER 2018-10-06 06:08 | Day surgery (SDC) | payer MEDICARE ==
[2018-09-29 08:21] VITALS: BMI 31.4
[2018-10-06] MEDS ORDERED: Levofloxacin 500 mg/D5W 100 ml Premix Bag ONE (06:26)
[2018-10-06] MEDS ORDERED: Famotidine/PF 20 mg/2ml Vial ONE (06:47)
[2018-10-06] MEDS ORDERED: Fentanyl 100 MCG/2 ML VIAL ONE (06:47)
[2018-10-06] MEDS ORDERED: Iothalamate Meglumine 60% 50 ML VIAL FS ONE ×2 (07:05→07:11)
--- NOTE | 2018-10-06 09:37 | RAD ---
SINGLE VIEW OF THE ABDOMEN: COMPARISON: CT abdomen/pelvis 06/05/2018. HISTORY: Renal calculi. FINDINGS: Anterior views of the abdomen show a nonspecific, nonobstructed bowel gas pattern. Calcifications ar e seen projecting over both renal shadows. The largest calcification on the right measures 1.8 cm in size. The largest calcification on the left measures 1.1 cm in size. IMPRESSION: Bilateral renal calculi. POS: SD
--- NOTE | 2018-10-06 10:16 | RAD ---
Retrograde ureterogram intraoperative fluoroscopy HISTORY: Renal calculi. FINDINGS: Intraoperative fluoroscopy was provided for retrograde study as performed by Dr. Oren pittman. Spot fluoroscopic images show contrast opacification of each renal collecting system and ureter. Filling defects not reliably demonstrated. Lobular densities overlying the inferior pole of each kidn ey consistent with renal calculi. Final image shows double pigtail stent over the course of the right ureter.
[2018-10-06] MEDS ORDERED: Phenazopyridine HCl 97.5 MG TABLET ONE (11:10)
[2018-10-06] MEDS ORDERED: Oxybutynin 5 MG TAB ONE (11:10)
[2018-10-06] MEDS ORDERED: Glycopyrrolate 0.2 MG/ML 5 ML SYRINGE ONE (11:48)
[2018-10-06] MEDS ORDERED: Rocuronium Bromide 10 MG/ML (10ML VIAL) ONE (11:48)
[2018-10-06] MEDS ORDERED: Ondansetron PF 4 MG/2 ML Vial ONE (11:48)
[2018-10-06] MEDS ORDERED: PROPOFOL 200 MG/20 ML VIAL ONE (11:48)
[2018-10-06] MEDS ORDERED: Lidocaine 1% PF 5 ML VIAL ONE (11:48)
[2018-10-06] MEDS ORDERED: Metoclopramide HCl 10 MG/2 ML VIAL ONE (11:48)
[2018-10-06] MEDS ORDERED: Phenylephrine HCL 10 MG/ML VIAL ONE (11:48)
--- NOTE | 2018-10-06 13:11 | OP ---
DATE OF PROCEDURE: 10/06/2018 PREOPERATIVE DIAGNOSES: 1. A 57-year-old male with history of morbid obesity, recurrent kidney stone. Recent CT staging demonstrating bilateral renal calculi: Right renal pelvic stone measuring 1.9 cm x 1.5 cm, right lower pole stone anterior calyceal 1.9 x 1.5 cm , numerous other right renal calculi in the mid lower pole measuring about 8 mm each, 2 to 3 in number. Left renal stone burden in the renal pelvis 1 cm x 7 to 8 mm left lower pole. Multiple conglomerate stone measuring in total dimensions 8 mm. 2. History of urethral meatal stone, status post extraction. 3. History of meatal fossa navicular stricture. POSTOPERATIVE DIAGNOSES: 1. A 57-year-old male with history of morbid obesity, recurrent kidney stone. Recent CT staging demonstrating bilateral renal calculi: Right renal pelvic stone measuring 1.9 cm x 1.5 cm, right lower pole stone anterior calyceal 1.9 x 1.5 cm , numerous other right renal calculi in the mid lower pole measuring about 8 mm each, 2 to 3 in number. Left renal stone burden in the renal pelvis 1 cm x 7 to 8 mm left lower pole. Multiple conglomerate stone measuring in total dimensions 8 mm. 2. History of urethral meatal stone, status post extraction. 3. History of meatal fossa navicular stricture. PROCEDURES PERFORMED: Cystoscopy, bilateral retrograde pyelogram, balloon dilatation of the distal ureter, right 6 x 26 double-J ureteral stent, right ureteroscopy, pyeloscopy, laser lithotripsy of large right renal pelvic mid pole stone, basket extraction of stone nidus, meatal dilatation with Fifi sounds , bulbar urethral stricture dilatation, 18-Somali two-way Urena catheter placement to leg bag, gravity bag. ANESTHESIA: General. COMPLICATIONS: None apparent. SPECIMENS: Stone for chemical analysis. DRAINS: An 18-Somali 10 mL urethral Urena catheter to gravity leg bag. INTRAOPERATIVE FINDINGS: 1. Fossa navicularis meatal urethral stricture, caliber about 18-Somali, requiring dilatation to pass a 21 and 22-Somali cystoscope. 2. Bulbar urethral stricture, caliber about 8 to 10-Somali, passively dilated with 25-Somali cystoscope sheath. 3. Bilobar hyperplasia, minimal, bladder grossly unremarkable. INDICATIONS FOR PROCEDURE AND HISTORY: Mr. Mancia is a 57-year-old male with history of morbid obesity with bilateral renal stone as above. I would prefer to do a PCNL stage intervention. However, due to his morbid obesity, after conferencing with Interventional Radiology, unable to proceed with percutaneous access due to his body habitus. The patient is a poor candidate for shockwave as his stone-to- skin distance is over 22 cm. He is in full understanding regarding multiple stage intervention given stone nidus, bilateral stone burden, moreover dense nature of the stone with Hounsfield unit of the stone demonstrating density of the stone 1100. Indications for the procedure reviewed as well as risks and complications including, but not limited to, bleeding, pain, infection, injury to adjacent organs, urosepsis, and stricture formation. He is in full understanding regarding s staged intervention. DESCRIPTION OF PROCEDURE: After an informed consent was signed, the patient was taken to the operating room, placed in a dorsal lithotomy position with the genital area prepped and draped in the usual surgical sterile fashion. Broad-spectrum antibiotics were provided. The meatus was calibrated. I was able to pass a 21-Somali cystoscope; however, passive dilatation was required and I did dilate his meatus from 22-Somali to 38-Somali with ease. Upon passing the cystoscope, we encountered a bulbar urethral stricture 8 to 10-Somali caliber. It was soft in nature. I was able to pass it with a 22 without significant issues. Bilobar hyperplasia, mild was noted and bladder was entered with ease. He does have a high median bar incidentally. The UOs were identified bilaterally. I did perform a left retrograde pyelogram, which demonstrated no evidence of hydronephrosis or obstructing ureteral calculi. At this time, attention was paid to right retrograde pyelogram and a right open-ended catheter was utilized to intubate the right UO and retrograde pyelogram of the right kidney demonstrated no hydro. Large stone burden seen on KUB as above. A 0.35 Sensor wire was placed into the right mid to upper pole. At this time, we dilated his intramural distal ureter with a 6 cm 15- Somali balloon without significant issues. Subsequently, a 10-Somali dual-lumen access sheath was able to be passed into the right proximal ureter and a second safety wire of 0.35 Super Stiff was passed. An 11/13-Somali x 46 navigator was passed without significant issues. At this time through the safety wire, we passed a flexible ureteroscope. We staged a large renal pelvic stone, this was pushed into the mid pole. We then further staged his other stone, which demonstrated a right mid lower pole stone moiety with stone extruding out of the infundibulum and a very large right lower pole calyceal stone consistent with a lower pole stone, which was difficult to engage given his infundibular angle. We treated his mid pole renal pelvic stone first. Using 276 ball-tip laser fiber at the setting, we laser lithotripsied the renal pelvic stone measuring on CT about 1.9 cm. We spent a significant amount of time lasering the stone as it was very large in nature. At the end of the procedure, this stone moiety demonstrated mostly dust-like stone debris. Stone residual of caliber probably about 3 mm in the largest. There was some residual stone in the mid pole, which I laser lithotripsied as well. We did spend significant amount of time given his large stone burden and it was very dense in nature. I was able to stage a lower pole mid pole infundibular stone. This was about [address] This appeared to be extruding out of the collecting system and was unable to basket into a more amendable treatment. I did switch to a 200 micron laser fiber and we tried to laser lithotripsy the stone. However, given elapsed time with treating the 2 cm stone, decision was made to stage his mid pole and an extensive 1.9 cm lower pole stone at a later date. I was able to see the stone with the flexible ureteroscope, although challenging will likely be amendable to be treated with a flexible ureteroscope. We staged the ureter, which demonstrated no evidence of ureteral stone of concern nor stricture nor ureteral perforation. The access sheath was removed and a 6 x 26 double-J ureteral stent was passed without difficulty. All wires were then removed. Good coil was seen in the kidney and the bladder. Bladder was completely emptied. I did re-staged his bulbar urethra. We passively dilated with a 25 sheath. It still demonstrated an annular narrowing. However, I did make the decision not to perform a DVIU at this time as an 18- Somali Urena catheter was able to be passed in and out without significant issues. He will follow up with me next Saturday for a voiding trial. Subsequently, I will schedule him for staged ureteroscopy, laser lithotripsy of his left lower pole stone burden. The patient will be discharged with Macrobid 100 mg one p.o. b.i.d. for 10 days , Azo p.r.n., and Colace p.r.n. Short course of narcotics, Davin , #30 provided. Job ID: [id number] [id number]
[2018-10-09 16:10] LABS: CA Oxalate Monohydrate 70 % (.); CA Phosphate 25 % (.); Color Tan (.); Comment Note: (.); Stone Weight 23.3 mg (.)
== END 2018-10-06 12:35 | disposition home or self-care (01) ==
LOC: SDC 06:08
PROVIDERS: ATTEND Urology
PROC: 0T768DZ Dilation of Right Ureter with Intraluminal Device, Via Natural or Artificial Opening Endoscopic (ICD-10-PCS; principal; 2018-10-06)
PROC: 0TF38ZZ Fragmentation in Right Kidney Pelvis, Via Natural or Artificial Opening Endoscopic (ICD-10-PCS; 2018-10-06)
DX: N20.0 Calculus of kidney (principal); N35.911 Unspecified urethral stricture, male, meatal; N35.912 Unspecified bulbous urethral stricture, male; N40.1 Benign prostatic hyperplasia with lower urinary tract symptoms; R35.0 Frequency of micturition; E66.01 Morbid (severe) obesity due to excess calories; I10 Essential (primary) hypertension; M10.9 Gout, unspecified; E11.9 Type 2 diabetes mellitus without complications; E78.5 Hyperlipidemia, unspecified; Q64.33 Congenital stricture of urinary meatus; Z87.440 Personal history of urinary (tract) infections; Z87.891 Personal history of nicotine dependence; Z68.31 Body mass index [BMI] 31.0-31.9, adult; Z88.0 Allergy status to penicillin; Z88.2 Allergy status to sulfonamides; Z79.82 Long term (current) use of aspirin; Z79.84 Long term (current) use of oral hypoglycemic drugs; Z79.891 Long term (current) use of opiate analgesic; Z79.899 Other long term (current) drug therapy
CPT/HCPCS: 52341; 52356; 74018; 82365; 82962; 88300; C1758; C1769; 36416; J0131; J1956; J2001; J2370; J2405; J2704; J2765; J3010; J3370; Q9961; S0028

== ENCOUNTER 2018-10-15 16:41 | Outpatient (CLI) | payer MEDICARE ==
[2018-10-15 17:49] LABS: Bilirubin Small (Negative); Blood, Urine Small (Negative); Clarity Clear (Clear); Glucose, Urine (Dipstick) 100 mg/dL (Negative); Leukocyte Large (Negative); Nitrite Positive (Negative); Protein, Urine (Dipstick) 100 mg/dL (Neg-Trace)
--- NOTE | 2018-10-15 17:52 | RAD ---
SINGLE VIEW OF THE ABDOMEN: 10/15/18 COMPARISON: 10/06/18. HISTORY: Preoperative radiograph. FINDINGS: Single view of the abdomen shows a nonspecific, nonobstructed bowel gas patter. Calcifications projec t over both kidneys. The largest is seen in the right measuring 1.7 cm in size. A right sided uretera l stent is seen in good position. IMPRESSION: Bilateral nephrolithiasis. POS: [facility]
[2018-10-15 19:01] LABS: Bacteria/HPF 1+ HPF (None Seen); Hyaline Casts/LPF 0-3 HYALINE CAST LPF (0-3 Hyaline); Renal Epithelial None Seen HPF (0-3); Transitional Epithelial 0-3 HPF (0-3); WBC/HPF 21-50 HPF (0-3)
[2018-10-16 08:30] LABS: Hemoglobin 15.7 g/dL (14.0-18.0); Mean Corpuscular HGB CONC 32.3 g/dL (32.0-36.0); Mean Corpuscular Hemoglobin 28.8 pg (27.0-31.0); Mean Corpuscular Volume 89.2 fL (78.0-98.0); Mean Platelet Volume 9.1 fL (7.4-10.4); Platelet Count 228 thou/uL (130-400); RBC Distribution Width 12.9 % (11.5-14.5); Red Blood Cell (RBC) Count 5.47 mill/uL (4.70-6.10); White Blood Cell (WBC) Count 10.2 thou/uL (4.8-10.8)
[2018-10-16 10:07] LABS: Anion Gap 17 mmol/L (10-20); BUN (Urea Nitrogen) 12 mg/dL (8.4-25.7); Calc. Creatinine Clearance 0 mL/min (70-130); Calcium 9.7 mg/dL (7.8-10.44); Carbon Dioxide 21 mmol/L (22-29); Chloride 99 mmol/L (98-107); Estimated GFR-MDRD 58; Glucose 196 mg/dL (70-105); Potassium 4.6 mmol/L (3.5-5.1); Sodium 132 mmol/L (136-145)
== END 2018-10-15 16:42 | disposition home or self-care (01) ==
LOC: LABBT 16:41
PROVIDERS: ATTEND Urology
DX: Z01.818 Encounter for other preprocedural examination (principal); N20.0 Calculus of kidney
CPT/HCPCS: 74018; 80048; 81001; 85027; 87086

== ENCOUNTER 2018-10-29 06:50 | Day surgery (SDC) | payer MEDICARE ==
[2018-10-15 17:07] VITALS: BMI 45.1
[2018-10-29] MEDS ORDERED: Iothalamate Meglumine 60% 50 ML VIAL FS ONE (07:05)
[2018-10-29] MEDS ORDERED: Fentanyl 100 MCG/2 ML VIAL ONE ×2 (07:29→12:48)
[2018-10-29 08:10] LABS: PTT 26.4 SEC (22.9-36.1); Prothrombin Time 13.3 SEC (12.0-14.7)
[2018-10-29] MEDS ORDERED: Levofloxacin 500 mg/D5W 100 ml Premix Bag ONE (08:37)
--- NOTE | 2018-10-29 12:21 | RAD ---
Retrograde ureterogram intraoperative fluoroscopy HISTORY: Ureteral obstruction. FINDINGS: Intraoperative fluoroscopy was provided for retrograde study as performed by Dr. Oren pittman. Single spot fluoroscopic image shows double pigtail stent over the course of the right ureter.
[2018-10-29] MEDS ORDERED: Oxybutynin 5 MG TAB ONE (12:47)
[2018-10-29] MEDS ORDERED: Phenazopyridine HCl 97.5 MG TABLET ONE ×2 (12:47)
[2018-10-29] MEDS ORDERED: Morphine 4 MG/ML VIAL ONE (13:15)
[2018-10-29] MEDS ORDERED: HYDROcodone/Acetaminophen 5/325 mg Tablet ONE (14:17)
--- NOTE | 2018-10-29 15:57 | OP ---
DATE OF PROCEDURE: 10/29/2018 PREOPERATIVE DIAGNOSES: A 57-year-old morbidly obese male with history of recurrent kidney stone: 1. Right renal pelvic stone measuring 2 cm, right lower pole anterior calyceal stone measuring 1.9 x 1.5 cm, numerous other right renal calculi in the mid lower pole measuring 8 mm each, 2-3 in number. 2. Left renal stone burden in the renal pelvis, 1 cm x 7 mm; left lower pole multiple stones, totally measuring about 8 mm. 3. History of meatal/fossa navicularis stricture secondary to urethral meatal stone status post extraction. 4. History of bulbar urethral stricture, 8-10-Guinean, previous dilatation passively. POSTOPERATIVE DIAGNOSES: A 57-year-old morbidly obese male with history of recurrent kidney stone: 1. Right renal pelvic stone measuring 2 cm, right lower pole anterior calyceal stone measuring 1.9 x 1.5 cm, numerous other right renal calculi in the mid lower pole measuring 8 mm each, 2-3 in number. 2. Left renal stone burden in the renal pelvis, 1 cm x 7 mm; left lower pole multiple stones, totally measuring about 8 mm. 3. History of meatal/fossa navicularis stricture secondary to urethral meatal stone status post extraction. 4. History of bulbar urethral stricture, 8-10-Guinean, previous dilatation passively. PROCEDURES PERFORMED: 1. Cystoscopy. 2. Right retrograde pyelogram. 3. Right 6 x 26 double-J ureteral stent exchange. 4. Right ureteroscopy, pyeloscopy, laser lithotripsy of right mid pole and lower pole stone. 5. Basket extraction of multiple stone debris from the upper pole. 6. Urethral stricture dilatation. 7. Direct vision internal urethrotomy with a bulbar urethral stricture. 8. 20-Guinean [place] tip Urena catheter placement over guidewire to gravity leg bag. ANESTHESIA: General. COMPLICATIONS: None apparent. SPECIMENS: Stone for gross only. DRAINS: 1. 20-Guinean 10 mL [place] tip gravity Urena. 2. 6 x 26 double-J ureteral stent. INTRAOPERATIVE FINDINGS: 1. Resolution of fossa navicularis urethral stricture. 2. Bulbar urethral stricture about 8 to 10-Guinean caliber, unable to passively dilate with persistent narrowing. Therefore, direct vision internal urethrotomy performed. 3. Bilobar hyperplasia with minimal obstruction. Bladder grossly unremarkable. 4. Pyeloscopy demonstrated multiple fragmented stone debris in the upper pole, consistent with prior renal pelvic stone, right mid pole stone imbedded, right lower pole stone imbedded with mucosal overgrowth. 5. History of calcium phosphate monohydrate stone moiety. INDICATIONS FOR THE PROCEDURE: Mr. Mancia is a 57-year-old male with history of morbid obesity with bilateral renal stone, dimensions as above. Although I would prefer to do PCNL stage procedure, he is morbidly obese, per Interventional Radiology, percutaneous access will not be able to be performed due to his body habitus. He is a poor candidate for shockwave as his stone to skin distance measures over 22 cm. He is in full understanding regarding indications for multiple ureteroscopy, laser lithotripsy, given stone burden, his body habitus, Hounsfield unit of his stones over 1100, would get very dense stone moiety. He presents today for staged ureteroscopy and laser lithotripsy. Description, indications, risks , and complications of the procedure were reviewed with him in detail including, but not limited to: Bleeding, pain, infection, injury to adjacent organs, urosepsis, stricture formation, recurrence, injury to adjacent organs such as ureter, bladder, kidney. All questions answered to satisfaction. He desired to proceed. DESCRIPTION OF PROCEDURE: After an informed consent was signed, the patient was taken to the operating room. He was placed in dorsal lithotomy position with bilateral SCDs and broad-spectrum antibiotics were provided. He was formally prepped and draped and we passed a 21-Guinean cystoscope. There was no recurrent nature of the fossa navicularis stricture. Upon entering the bulbar urethra, there was a narrowing consistent with recurrent stricture. The stricture was about 8 to 10-Guinean. I was able to gently negotiate the 21-Guinean rigid scope passed this. Restaging demonstrated persistent narrowing. I did make my way into the level of the bladder with coacting lateral lobes with minimal BPH component. The previously placed ureteral stent was removed to the level of the meatus. A 0.035 Sensor wire was subsequently passed to the level of the mid ureter and there was some wire redundancy in this area. Therefore, the wire was left in situ in the proximal ureter and the stent completely removed. A 10-Guinean dual-lumen access sheath was passed over the guidewire to the level of the wire and then subsequently straightened and passed to the right upper pole with ease. At this time, a retrograde pyelogram was performed, demonstrating that the wire was in good position in the right upper pole. Retrograde pyelogram was performed, demonstrating the stone in the wire. At this time, I performed a rigid ureteroscopy, clearing the mid to distal ureter of any stone debris. Subsequently, we reintroduced a second safety wire of 0.035 SuperStiff and a 13/15-Guinean x 46 cm navigator was passed without significant issues as he was nicely passively dilated. With the navigator in situ, I passed a flexible ureteroscope disposable camera into the level of the renal pelvis over this working wire. With the safety wire in situ and the working wire removed, we performed the pyeloscopy. There were multiple small punctate stone moiety, consistent with prior laser lithotripsy of a large midpole stone. Those that were amenable to be basket extracted were extracted. What remained in situ were very small dustlike debris. We did spend significant amount of time basket extracting the upper pole stone nidus of laser lithotripsy fragmentation. At this time, we switched to a ball-tip fiber 200 micron. I did initially try the 275; however, I was unable to access the lower pole with a 275 micron laser fiber. Both stones in the mid and lower pole were very challenging to treat. The both stones appeared to be imbedded with mucosal overgrowth in the lateral edges of the collecting system. We laser lithotripsied the mid pole stone as much as we could on today's pyeloscopy. It appeared to be impacted. Although, with mid pole, laser lithotripsy of the edge of the stone was very difficult. I laser lithotripsied probably about half of the stone nidus in the mid pole. On imaging, this measures about 8 mm. I then engaged the lower pole stone with a 200 micron ball-tip laser fiber. We switched back and forth from 200 micron laser fiber regular tip. Using dust setting energy, we laser lithotripsied the lower pole stone nidus. Again, the lower pole stone nidus at the lateral edges circumferentially imbedded in the mucosa of the calyx. Although, we tried to laser and tease off the stone off the mucosa for better access, this was unable to be performed. Therefore, we laser lithotripsied the stone in the central portion of the stone, able to make my way to the end of the stone and saw the collecting system mucosa. After laser lithotripsying, I did do a retrograde pyelogram, demonstrating no evidence of calyceal perforation. The stone that was imbedded on the inferior aspect of the lower pole stone was lasered completely. What remains is the lower pole anterior lateral imbedded stone component that I had a very difficult time lasering. We did spend over 2 hours laser lithotripsying and basketing all his stone debris and nidus. Given the progress of the time, moreover difficult access, procedure was terminated at this time. I did laser lithotripsy some residual stones in the upper pole. The ureter was surveyed with the flexible ureteroscope, which demonstrated no evidence of ureteral stone or perforation. A 6 x 26 double-J ureteral stent was then placed over the safety wire with good coil in the kidney and the bladder. I resurveyed his urethral stricture. With passage of the 21-Guinean cystoscope back and forth, there was persistent narrowing. As I did have some difficulty passing a straight cath to obtain a specimen, decision was made to perform a DVIU at this time. Using a 21-Guinean cystoscope and a cold knife, DVIU by releasing annular stricture at 12 o'clock position was performed uneventfully. However, a guidewire assist, a 20-Guinean 10 mL urethral Urena catheter was replaced to gravity leg bag and 10 mL insufflated. He will be discharged with Macrobid 100 mg one p.o. b.i.d. for 10 days, [place] 5/325 for short course of #20, Colace p.r.n., and he is to continue his Flomax. He will return to my clinic next with KUB 1 hour prior to the appointment to schedule re-staged right ureteroscopy and pyeloscopy. We will treat his lower pole stone as much as we can and progress to his contralateral side. Job ID: [id number] [facility]
[2018-10-29] MEDS ORDERED: Lidocaine 1% PF 5 ML VIAL ONE (16:34)
[2018-10-29] MEDS ORDERED: Glycopyrrolate 0.2 MG/ML 5 ML SYRINGE ONE (16:34)
[2018-10-29] MEDS ORDERED: Rocuronium Bromide 10 MG/ML (10ML VIAL) ONE (16:34)
[2018-10-29] MEDS ORDERED: PROPOFOL 200 MG/20 ML VIAL ONE (16:34)
== END 2018-10-29 15:50 | disposition home or self-care (01) ==
LOC: SDC 06:50
PROVIDERS: ATTEND Urology
PROC: 0TND8ZZ Release Urethra, Via Natural or Artificial Opening Endoscopic (ICD-10-PCS; principal; 2018-10-29)
PROC: 0TF38ZZ Fragmentation in Right Kidney Pelvis, Via Natural or Artificial Opening Endoscopic (ICD-10-PCS; 2018-10-29)
PROC: 0T768DZ Dilation of Right Ureter with Intraluminal Device, Via Natural or Artificial Opening Endoscopic (ICD-10-PCS; 2018-10-29)
DX: N20.0 Calculus of kidney (principal); Q64.33 Congenital stricture of urinary meatus; I10 Essential (primary) hypertension; M10.9 Gout, unspecified; E78.5 Hyperlipidemia, unspecified; E11.9 Type 2 diabetes mellitus without complications; N40.1 Benign prostatic hyperplasia with lower urinary tract symptoms; R35.0 Frequency of micturition; R39.14 Feeling of incomplete bladder emptying; E66.01 Morbid (severe) obesity due to excess calories; Z68.42 Body mass index [BMI] 45.0-49.9, adult; Z79.84 Long term (current) use of oral hypoglycemic drugs; Z79.899 Other long term (current) drug therapy; Z88.0 Allergy status to penicillin; Z88.2 Allergy status to sulfonamides; Z98.890 Other specified postprocedural states
CPT/HCPCS: 36415; 74420; 82365; 85610; 85730; 88300; C1758; C1769; J1956; J2001; J2270; J2704; J3010; J3370

== ENCOUNTER 2018-11-06 10:44 | Outpatient (CLI) | payer MEDICARE ==
--- NOTE | 2018-11-06 11:48 | RAD ---
KUB: HISTORY: Renal calculi. COMPARISON: 10/15/2018 study. FINDINGS: A right ureteral stent is now in place. Bilateral renal calculi are again identified. One of the la rger calcifications within the lower pole of the right kidney appears more fragmented than on the iwona or exam. IMPRESSION: Bilateral renal calculi. The only suggestion of an interval change is the lower pole calculus on the right appears more fragmented. POS: [facility]
[2018-11-06 15:17] LABS: PTT 27.6 SEC (22.9-36.1); Prothrombin Time 13.3 SEC (12.0-14.7)
[2018-11-06 15:26] LABS: #Basophils 0.1 thou/uL (0.0-0.2); #Eosinphils 0.5 thou/uL (0.0-0.7); #Neutrophils 6.4 thou/uL (1.40-6.50); %Eosinophils 5.5 % (0.0-10.0); %Lymphocytes 19.9 % (21.0-51.0); %Monocytes 9.6 % (0.0-10.0); Hemoglobin 16.1 g/dL (14.0-18.0); Mean Corpuscular HGB CONC 32.8 g/dL (32.0-36.0); Mean Corpuscular Hemoglobin 28.6 pg (27.0-31.0); Mean Platelet Volume 8.4 fL (7.4-10.4); Platelet Count 333 thou/uL (130-400); RBC Distribution Width 12.7 % (11.5-14.5); Red Blood Cell (RBC) Count 5.65 mill/uL (4.70-6.10); White Blood Cell (WBC) Count 9.9 thou/uL (4.8-10.8)
[2018-11-06 15:31] LABS: Anion Gap 15 mmol/L (10-20); BUN (Urea Nitrogen) 13 mg/dL (8.4-25.7); Calc. Creatinine Clearance 0 mL/min (70-130); Calcium 10.2 mg/dL (7.8-10.44); Carbon Dioxide 21 mmol/L (22-29); Chloride 104 mmol/L (98-107); Estimated GFR-MDRD 75; Glucose 122 mg/dL (70-105); Potassium 4.5 mmol/L (3.5-5.1); Sodium 135 mmol/L (136-145)
--- NOTE | 2018-11-06 15:40 | RAD ---
EXAM: CHEST TWO VIEWS: 11/06/18 HISTORY: Preoperative evaluation. COMPARISON: 03/23/18. FINDINGS: Heart size is within normal limits. Minimal bilateral pleural thickening. No confluent pneumonia, ove rt edema, or pleural effusion. IMPRESSION: No acute intrathoracic disease. POS: [facility]
--- NOTE | 2018-11-06 17:04 | EKG ---
Test Reason : Blood Pressure : / mmHG Vent. Rate : 084 BPM Atrial Rate : 084 BPM P-R Int : 126 ms QRS Dur : 094 ms QT Int : 362 ms P-R-T Axes : 023 088 024 degrees QTc Int : 427 ms Normal sinus rhythm Normal ECG When compared with ECG of 29-SEP-2018 09:21, No significant change was found Confirmed by DR. Felicity ADAMS ([id number]) on 11/06/2018 5:04:09 PM Referred By: BRAD Confirmed By:DR. Felicity ADAMS
== END 2018-11-06 10:45 | disposition home or self-care (01) ==
LOC: RAD 10:44
PROVIDERS: ATTEND Urology
DX: Z01.818 Encounter for other preprocedural examination (principal); N20.0 Calculus of kidney; R35.0 Frequency of micturition; N40.1 Benign prostatic hyperplasia with lower urinary tract symptoms; E11.9 Type 2 diabetes mellitus without complications; E66.01 Morbid (severe) obesity due to excess calories; R33.9 Retention of urine, unspecified; N35.819 Other urethral stricture, male, unspecified site; Z87.39 Personal history of other diseases of the musculoskeletal system and connective tissue; Z87.440 Personal history of urinary (tract) infections
CPT/HCPCS: 71046; 74018; 80048; 81001; 85025; 85610; 85730; 87086; 93005; 93010

== ENCOUNTER → 2018-11-12 | Day surgery (SDC) | payer MEDICARE ==
[2018-11-06 13:27] VITALS: BMI 46.5
== END ==
LOC: SDC 08:08
PROVIDERS: ATTEND Urology
DX: N20.0 Calculus of kidney (principal); Z53.9 Procedure and treatment not carried out, unspecified reason

== ENCOUNTER 2018-11-19 14:36 | Outpatient (CLI) | payer MEDICARE ==
[2018-11-19 16:08] LABS: Hemoglobin 15.7 g/dL (14.0-18.0); Mean Corpuscular HGB CONC 33.6 g/dL (32.0-36.0); Mean Corpuscular Volume 86.3 fL (78.0-98.0); Mean Platelet Volume 8.3 fL (7.4-10.4); Platelet Count 261 thou/uL (130-400); RBC Distribution Width 12.9 % (11.5-14.5); Red Blood Cell (RBC) Count 5.42 mill/uL (4.70-6.10); White Blood Cell (WBC) Count 8.6 thou/uL (4.8-10.8)
[2018-11-19 16:14] LABS: INR-International Normal Ratio 1.1; PTT 26.7 SEC (22.9-36.1); Prothrombin Time 13.7 SEC (12.0-14.7)
[2018-11-19 16:29] LABS: Anion Gap 13 mmol/L (10-20); BUN (Urea Nitrogen) 19 mg/dL (8.4-25.7); Calc. Creatinine Clearance 0 mL/min (70-130); Calcium 10.5 mg/dL (7.8-10.44); Carbon Dioxide 24 mmol/L (22-29); Chloride 105 mmol/L (98-107); Estimated GFR-MDRD 55; Glucose 105 mg/dL (70-105); Potassium 4.4 mmol/L (3.5-5.1); Sodium 138 mmol/L (136-145)
== END 2018-11-19 14:37 | disposition home or self-care (01) ==
LOC: LABBT 14:36
PROVIDERS: ATTEND Urology
DX: Z01.818 Encounter for other preprocedural examination (principal); N20.0 Calculus of kidney
CPT/HCPCS: 80048; 81001; 85027; 85610; 85730; 87086; 93005; 93010

== ENCOUNTER 2018-11-24 06:33 | Day surgery (SDC) | payer MEDICARE ==
[2018-11-19 15:23] VITALS: BMI 45.1
[2018-11-24] MEDS ORDERED: Iothalamate Meglumine 60% 50 ML VIAL FS ONE (07:10)
[2018-11-24] MEDS ORDERED: Levofloxacin 500 mg/D5W 100 ml Premix Bag ONE (07:50)
--- NOTE | 2018-11-24 07:59 | RAD ---
Abdomen one view HISTORY: Preop. COMPARISON: 11/06/2018. FINDINGS: Visualized bowel gas pattern is nonspecific. Double-pigtail stent of the right ureter appea rs unchanged in position. Multiple calcifications projecting over each renal shadow are again demonstrated. Similar in appearan ce to the prior study. Urinary bladder catheter no longer visible. IMPRESSION: Bilateral renal calculi and right ureteral stent, stable. Interval removal of the urinary bladder catheter.
[2018-11-24] MEDS ORDERED: Fentanyl 100 MCG/2 ML VIAL ONE (09:45)
[2018-11-24] MEDS ORDERED: PROPOFOL 200 MG/20 ML VIAL ONE (12:20)
[2018-11-24] MEDS ORDERED: Rocuronium Bromide 10 MG/ML (10ML VIAL) ONE (12:20)
[2018-11-24] MEDS ORDERED: Ondansetron PF 4 MG/2 ML Vial ONE (12:20)
[2018-11-24] MEDS ORDERED: Lidocaine 1% PF 5 ML VIAL ONE (12:20)
[2018-11-24] MEDS ORDERED: Succinylcholine Chloride 20 MG/ML 10 ml SYRINGE FS ONE (12:20)
[2018-11-24] MEDS ORDERED: Glycopyrrolate 0.2 MG/ML 5 ML SYRINGE ONE (12:20)
--- NOTE | 2018-11-24 12:51 | RAD ---
Retrograde pyelogram: HISTORY: Bilateral renal calculi. Senior Application Software Engineer film shows bilateral renal calculi. Exam includes injection of the right upper renal collecting system and right ureteral stent. Ureteroscopy and lithotripsy. IMPRESSION: Bilateral renal calculi. Injection right upper collecting system. Right ureteral stent placed.
[2018-11-24] MEDS ORDERED: Oxybutynin 5 MG TAB ONE (13:07)
[2018-11-24] MEDS ORDERED: Phenazopyridine HCl 97.5 MG TABLET ONE (13:08)
[2018-11-24] MEDS ORDERED: Tamsulosin HCl 0.4 MG CAP ONE (13:08)
--- NOTE | 2018-11-24 18:01 | OP ---
DATE OF PROCEDURE: 11/24/2018 PREOPERATIVE DIAGNOSES: A 57-year-old morbidly obese male with history of recurrent kidney stone. 1. Multiple right renal calculi, dimensions: History of right renal pelvic stone, 2 cm; right lower pole anterior calyceal stone, 1.9 x 1.5 cm; right mid to lower pole stone, 8 mm x2. 2. Left stone burden: 1 cm x 7 mm, left lower pole multiple stones, total dimensions measuring about 8 mm. 3. 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 4. History of bulbar stricture, 8 to 10-Martiniquais previous dilatation, direct vision internal urethrotomy. POSTOPERATIVE DIAGNOSES: A 57-year-old morbidly obese male with history of recurrent kidney stone. 1. Multiple right renal calculi, dimensions: History of right renal pelvic stone, 2 cm; right lower pole anterior calyceal stone, 1.9 x 1.5 cm; right mid to lower pole stone, 8 mm x2. 2. Left stone burden: 1 cm x 7 mm, left lower pole multiple stones, total dimensions measuring about 8 mm. 3. 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 4. History of bulbar stricture, 8 to 10-Martiniquais previous dilatation, direct vision internal urethrotomy. PROCEDURES PERFORMED: 1. Cystoscopy. 2. Right retrograde pyelogram. 3. Right 6 x 26 double-J ureteral stent exchange. 4. Right ureteroscopy, pyeloscopy, laser lithotripsy of mid pole and right lower pole calyceal stone, modifier 25 extended service due to large stone burden and imbedded. 5. Basket extraction of multiple stone debris from the upper pole. 6. Urethral stricture dilatation. 7. An 18-Martiniquais 10 mL Urena catheter placement. ANESTHESIA: General. SPECIMENS: Stone for chemical analysis. INDICATIONS FOR PROCEDURE AND HISTORY: Mr. Mancia is a 57-year-old morbidly obese male with history of gout, who presented with multiple large stone dimensions as above. He is known to have on previous analysis dense stone moiety of calcium oxalate monohydrate phosphate stone. His serum uric acid has been elevated on allopurinol. His renal function is stable. His recent bacteria treated and resolved with repeat urine culture negative, presents today for stage ureteroscopy and laser lithotripsy. Risks and complications of the procedure were reviewed with him in detail including, but not limited to, bleeding, pain, infection, injury to adjacent organs, urosepsis, stricture formation, recurrent, he is in full understanding regarding need for stage intervention given multiple stone nidus and stone debris. DESCRIPTION OF PROCEDURE: After an informed consent was signed, the patient was taken to the operating room, placed in a dorsal lithotomy position with the genital area prepped and draped in the usual surgical sterile fashion. A 21-Martiniquais cystoscope was utilized for cystoscopy, which demonstrated no evidence of fossa navicularis stricture. Recurrence of bulbar stricture was noted; however, this was wide caliber about 16-Martiniquais caliber. I was able to bypass the stricture with passive dilatation. Prostatic urethra demonstrated no obstructing lateral lobes of concern. Bladder was entered, and the previous ureteral stent was removed to the level of the meatus. The stent was removed; however, the wire would have difficulty passing through the stent. Therefore, we pulled the stent out completely and inserted a 5-Martiniquais open-ended catheter. There was some bullous edema of the right edita-trigone, consistent with the ureteral stent; however, we were able to pass the stent, open-ended, and a 0.035 Sensor wire was able to be passed into the right upper pole. At this time, a 10-Martiniquais dual-lumen access sheath was passed over the wire and a second safety wire of 0.035 Super Stiff was passed after a retrograde pyelogram performed, confirming proper placement. I can notice an acute infundibular angle of the lower pole, which made the stone in the lower pole very challenging to treat. With the safety wire secured, through the working Super Stiff wire, we passed a 13/15-Martiniquais x 46 cm navigator without any issues. He was passively dilated, no issues passing the navigator. A flexible ureteroscope was then advanced over the working wire. Once we were in the collecting system, the working wire was removed. We surveyed the collecting system, which demonstrated multiple small stone debris in the right upper pole collecting system, consistent with prior laser lithotripsy. I do leave these for now and we proceeded to stage his midpole and lower pole stone. The midpole stone previously as noted was imbedded in the midpole calyx. In the lower pole again, we made some headway of the lower pole; however, this was very challenging to treat, although 200 micron ball-tip fiber was available, I was able to flex the scope a little bit more with the regular 200 micron laser fiber. With 200 micron laser fiber, we were steadfast and approached the skin in the lower pole. This was very challenging due to the imbedded nature of the stone, in which we were unable to basket extract the stone to a better location to be amendable to the treatment. Therefore, we had to utilize the challenging angle to treat the lower pole stone. Subsequently, I was able to laser the stone; however, this took quite some time as the stone was quite large , dense and the acute infundibular angle. We did make progress treating the stone , and at the end of the case, there were some stone debris adherent to the mucosa. We used a Zero Tip and a Shira and the only way that we can render free. After multiple negotiation of rendering it off the mucosa, we were able to remove all stone debris from the right lower pole collecting system. I then approached the mid pole, which was also challenging. The stones were imbedded with mucosal overgrowth. We laser lithotripsied these and I was able to gain access into the midpole calyx, rendering it stone free. There were minute stone fragmented debris in this area and we basket extracted these as well. With these two challenging stones cleared, I then re-staged all the stone debris that had migrated into the upper pole. Those that were amendable to be basket extracted were basket extracted. We spent quite a bit of time trying to basket extract all these fragments. We alternated between basketing and lasering the stone debris to turn them into dust debris. At the end of the procedure, what remained were dustlike stone debris that was difficult to basket as they would siphon through the basket given there was a small stone debris. I do feel that what remained in the collecting system, although, there is about a centimeter to centimeter and half of dustlike stone debris that the patient should be able to pass these as they were very small punctate in caliber. The ureter was surveyed, which demonstrated no evidence of ureteral stone debris of concern. At this time, a 6 x 26 double-J ureteral stent was passed with the wire removed subsequently. Good coil was in the kidney and bladder. We re-staged the bulbar stricture and there was persistent annular narrowing. Therefore, I did dilate with a 25-Martiniquais sheath. I did not perform a DVIU at this time as it was done just few weeks ago. What remained of the persistent narrowing is nonobstructing approximately 20-Martiniquais caliber. An 18-Martiniquais Urena catheter was able to be passed without significant issues and attached to gravity bag. He will follow up with me next at 8:45 for work-in cysto stent pull. I do recommend the patient proceed with staging CT scan stone protocol day prior on 12/03 around 9:00 a.m. He is discharged with Levaquin course of 10 days, tramadol 50 mg 1 to 2 p.o. q.6 h. p.r.n., Levaquin 500 one p.o. daily #10, Colace #30 p.r.n., AZO p.r.n. He is to continue his Flomax and allopurinol. I will consider discontinuing the potassium citrate as his urine pH is six and his previous stone moiety does not demonstrate evidence of uric acid component. The patient will be instructed regarding CT stone protocol as he has a tendency for noncompliance with followup. Job ID: [id number] [facility]
[2018-11-27 13:10] LABS: CA Oxalate Dihydrate 10 % (.); CA Oxalate Monohydrate 65 % (.); CA Phosphate 25 % (.); Color Tan (.)
== END 2018-11-24 15:30 | disposition home or self-care (01) ==
LOC: SDC 06:33
PROVIDERS: ATTEND Urology
PROC: 0TC08ZZ Extirpation of Matter from Right Kidney, Via Natural or Artificial Opening Endoscopic (ICD-10-PCS; principal; 2018-11-24)
PROC: 0T768DZ Dilation of Right Ureter with Intraluminal Device, Via Natural or Artificial Opening Endoscopic (ICD-10-PCS; 2018-11-24)
DX: N20.0 Calculus of kidney (principal); N35.912 Unspecified bulbous urethral stricture, male; N40.1 Benign prostatic hyperplasia with lower urinary tract symptoms; R35.0 Frequency of micturition; R39.14 Feeling of incomplete bladder emptying; M10.9 Gout, unspecified; E66.01 Morbid (severe) obesity due to excess calories; I10 Essential (primary) hypertension; E11.9 Type 2 diabetes mellitus without complications; E78.5 Hyperlipidemia, unspecified; Z68.42 Body mass index [BMI] 45.0-49.9, adult; Z87.440 Personal history of urinary (tract) infections; Z88.0 Allergy status to penicillin; Z88.2 Allergy status to sulfonamides; Z79.84 Long term (current) use of oral hypoglycemic drugs; Z79.2 Long term (current) use of antibiotics; Z79.82 Long term (current) use of aspirin
CPT/HCPCS: 52356; 74018; 74420; 82365; 88300; C1758; C1769; J1956; J2001; J2405; J2704; J3010

== ENCOUNTER 2018-12-03 08:21 | Outpatient (CLI) | payer MEDICARE ==
--- NOTE | 2018-12-03 09:42 | CT ---
CT ABDOMEN AND PELVIS WITHOUT IV CONTRAST: INDICATION: Renal calculi. COMPARISON: Comparison is made to a CT abdomen and pelvis 06/05/2018. FINDINGS: Lung bases clear. Liver, spleen, and pancreas unremarkable. There is a right double pigtail ureteral stent in place which appears adequately positioned. In the right kidney, there are numerous nonobstructing calculi in the upper collecting structures of the rig ht kidney. The largest in the lower pole measures in the 8-10 mm range. In the left kidney, there are numerous nonobstructing calculi in the upper collecting structures. Th ere is a 10 mm calculus in the right renal pelvis. There is no hydronephrosis. This 10 mm calculus in the lower pole collecting structures is unchanged from the prior exam. There has been improvement in the calculi seen in the right kidney. The prior exam reviewed a large calculus in the renal pelvis which is no longer seen on the right and there was a larger calculus in the lower pole collecting structures on the right previously measuring up to 2 cm which is no longer seen. The urinary bladder is mildly contracted; however, there is evidence of bladder wall thickening. The re is a Urena catheter in place. Bowel loops unremarkable. Aorta normal caliber. No other interval change. IMPRESSION: Bilateral nonobstructing calculi in the upper collecting structures of both kidneys as described. A right ureteral stent is in adequate position. POS: NADEGE
== END 2018-12-03 08:22 | disposition home or self-care (01) ==
LOC: SCSCT 08:21
PROVIDERS: ATTEND Urology
DX: N20.0 Calculus of kidney (principal); Z96.0 Presence of urogenital implants
CPT/HCPCS: 74176

== ENCOUNTER 2019-02-02 09:24 | Outpatient (CLI) | payer MEDICARE ==
--- NOTE | 2019-02-02 12:44 | RAD ---
KUB: HISTORY: Renal calculi. COMPARISON: Retrograde pyelogram, 11/24/2018. FINDINGS: Multiple bilateral renal calculi. No overt identifiable ureteral calculus. Hip joint arthrosis more marked on the right side. Unremarkable bowel gas pattern. IMPRESSION: Bilateral renal calculi. There appear to be more numerous and smaller calculi fragments in the right kidney compared to the 11/24/2018 study. POS: NADEGE
== END 2019-02-02 09:25 | disposition home or self-care (01) ==
LOC: RAD 09:24
PROVIDERS: ATTEND Urology
DX: N20.0 Calculus of kidney (principal)
CPT/HCPCS: 36415; 74018; 80048; 81001; 84550; 87086

== ENCOUNTER 2019-02-11 07:58 | Outpatient (CLI) | payer MEDICARE ==
[2019-02-11 11:52] LABS: Hemoglobin 16.1 g/dL (14.0-18.0); Mean Corpuscular HGB CONC 32.2 g/dL (32.0-36.0); Mean Platelet Volume 8.8 fL (7.4-10.4); Platelet Count 242 thou/uL (130-400); RBC Distribution Width 13.5 % (11.5-14.5); Red Blood Cell (RBC) Count 5.76 mill/uL (4.70-6.10); White Blood Cell (WBC) Count 9.8 thou/uL (4.8-10.8)
[2019-02-11 11:58] LABS: PTT 27.5 SEC (22.9-36.1); Prothrombin Time 13.4 SEC (12.0-14.7)
[2019-02-11 12:13] LABS: Bacteria/HPF None Seen HPF (None Seen); Bilirubin Negative (Negative); Blood, Urine Negative (Negative); Clarity Clear (Clear); Glucose, Urine (Dipstick) Normal (Negative); Leukocyte 500 Leu/uL (Negative); Nitrite Negative (Negative); Protein, Urine (Dipstick) 10 mg/dL (Neg-Trace); Squamous Epithelial 0-3 HPF (0-3); Urobilinogen Normal mg/dL (Less than 2); WBC/HPF Greater than 50 HPF (0-3)
[2019-02-11 12:15] LABS: Anion Gap 13 mmol/L (10-20); BUN (Urea Nitrogen) 14 mg/dL (8.4-25.7); Calc. Creatinine Clearance 0 mL/min (70-130); Calcium 9.9 mg/dL (7.8-10.44); Carbon Dioxide 25 mmol/L (22-29); Chloride 103 mmol/L (98-107); Estimated GFR-MDRD 62; Glucose 125 mg/dL (70-105); Potassium 4.2 mmol/L (3.5-5.1); Sodium 137 mmol/L (136-145)
[2019-02-11 12:21] LABS: RBC/HPF 0-3 HPF (0-3)
[2019-02-11 12:23] LABS: Sperm/HPF Rare HPF (None Seen)
== END 2019-02-11 07:59 | disposition home or self-care (01) ==
LOC: LABBT 07:58
PROVIDERS: ATTEND Urology
DX: Z01.818 Encounter for other preprocedural examination (principal); N20.0 Calculus of kidney; Z87.440 Personal history of urinary (tract) infections; R35.0 Frequency of micturition; N40.1 Benign prostatic hyperplasia with lower urinary tract symptoms; Z87.39 Personal history of other diseases of the musculoskeletal system and connective tissue; Q64.33 Congenital stricture of urinary meatus; R33.9 Retention of urine, unspecified; E11.9 Type 2 diabetes mellitus without complications; E66.01 Morbid (severe) obesity due to excess calories
CPT/HCPCS: 80048; 81001; 85027; 85610; 85730; 87086; 93005; 93010

== ENCOUNTER 2019-02-18 08:22 | Day surgery (SDC) | payer MEDICARE ==
[2019-02-11 10:09] VITALS: BMI 45.1
[2019-02-18] MEDS ORDERED: Iothalamate Meglumine 60% 50 ML VIAL FS ONE (09:55)
[2019-02-18] MEDS ORDERED: Fentanyl 100 MCG/2 ML VIAL ONE (10:02)
[2019-02-18] MEDS ORDERED: Midazolam HCl 2 mg/2 ml Vial ONE (10:02)
[2019-02-18] MEDS ORDERED: Levofloxacin 500 mg/D5W 100 ml Premix Bag ONE (10:10)
--- NOTE | 2019-02-18 11:48 | RAD ---
Exam: Fluoroscopy provided for retrograde IVP. COMPARISON: 11/24/2018 FINDINGS: 5 fluoroscopic views demonstrate retrograde opacification of the left intrarenal and extrar enal collecting system. There is placement of a double-J ureteral stent, which appears be appropriately positioned IMPRESSION: Intraoperative procedure fluoroscopy as above.
--- NOTE | 2019-02-18 11:53 | RAD ---
SUPINE ABDOMEN: INDICATIONS: Renal stone. COMPARISON: 02/02/2019 FINDINGS: There is a large calculus overlying the lower pole of the left kidney measuring approximately 1 cm. T here are three or four other smaller calcifications which appear unchanged from the prior exam. Bowel content obscures the left kidney and small calcifications may be obscured. There are also several calcifications overlying the mid and lower pole of the right kidney which are partially obscured but also appear stable from 02/02/2019. The bowel gas pattern is unremarkable. IMPRESSION: Bilateral renal calculi appear unchanged from the prior study. POS: OFF
[2019-02-18] MEDS ORDERED: Phenazopyridine HCl 97.5 MG TABLET ONE (12:15)
[2019-02-18] MEDS ORDERED: Oxybutynin 5 MG TAB ONE (12:16)
--- NOTE | 2019-02-19 09:13 | OP ---
DATE OF PROCEDURE: 02/18/2019 PREOPERATIVE DIAGNOSES: 1. A 58-year-old male with history of bilateral stone burden status post staged right ureteroscopy and laser lithotripsy. 2. History of bulbar stricture. 3. Left stone nidus, being treated today: Left renal pelvic stone measuring about 10 mm, lower pole stones x2 measuring 3 to 4 mm. POSTOPERATIVE DIAGNOSES: 1. A 58-year-old male with history of bilateral stone burden status post staged right ureteroscopy and laser lithotripsy. 2. History of bulbar stricture. 3. Left stone nidus, being treated today: Left renal pelvic stone measuring about 10 mm, lower pole stones x2 measuring 3 to 4 mm. PROCEDURES PERFORMED: 1. Cystoscopy. 2. Left retrograde pyelogram. 3. Dilation of intramural ureter. 4. Flexible ureteroscopy. 5. Pyeloscopy. 6. Laser lithotripsy of large renal stone. 7. Basket extraction of stone debris. 8. A 6 x 26 double-J ureteral stent with distal tail in situ. 9. Direct vision internal urethrotomy of bulbar stricture. 10. A 18-[place] 10 mL Urena catheter placement. ANESTHESIA: General. COMPLICATIONS: None apparent. SPECIMENS: Stone for gross only. INDICATIONS FOR PROCEDURE AND HISTORY: Mr. Mancia is a morbidly obese 58-year- old male with history of significant bilateral stone burden. He has had history of urethral stricture and has passed large stones in the past. He underwent staged intervention of his right multiple significant stone burden. Prior pyeloscopy demonstrated most of the stone debris was dustlike caliber. Therefore on observation. He presents for staged intervention of the left renal pelvic stone. Risks and complications and indications for the procedure were reviewed with the patient in detail including, but not limited to, bleeding, pain, infection, injury to adjacent organs, urosepsis, stricture formation, sepsis, possible secondary procedure. All questions answered to his satisfaction and desired to proceed. DESCRIPTION OF PROCEDURE: After an informed consent was signed, the patient was taken to the operating room and placed in a dorsal lithotomy position with the genital area prepped and draped in the usual surgical sterile fashion. A 22- [place] cystoscope was utilized for cystoscopy, which demonstrated a bulbar stricture about 14 to 16-[place] caliber. Despite passing, I was able to pass the scope atraumatically. Prostatic urethra demonstrated mild bilobar hyperplasia with mild obstruction. No median lobe was noted. No bladder stones. At this time, the left UO was intubated with an open-ended catheter. Retrograde pyelogram was performed, demonstrating the left renal pelvic stone, which had migrated to the left mid to lower pole. This was radiopaque. At this time, a 0.035 Sensor wire was placed into the left upper pole. A [employer] 4-cm 12-[place] balloon dilator was utilized to dilate the intramural ureter with ease. Subsequently, we passed a 10-[place] dual-lumen access sheath to the level of the left proximal ureter and a 0.035 Super Stiff wire was placed into the left upper pole for working wire. With the safety wire secured, we passed an 11/13-[place] x 46 cm navigator to the level of the proximal ureter with ease. The flexible ureteroscope was then advanced over the working wire. Pyeloscopy was performed. The stone was seen in the left mid to lower pole moiety. There were tiny minute stone with other stones in this lower pole as well. They were very small. We using a 273 micron ball-tip fiber. We had laser lithotripsied the stone into multiple tiny fragments. We were able to fragment it into multiple tiny dustlike debris. What remained were punctate stone nidus. I did retrieve some. They were larger and these were minimal in size. Specimen was sent for gross only. We will remain in the left mid to lower pole with dustlike stone debris, which he should pass without significant issues. The ureter was surveyed, which demonstrated no evidence of ureteral mucosa trauma or stone nidus of concern. The navigator was completely removed and a 6 x 26 double-J ureteral stent was passed over the safety wire with distal tail left in situ. All wires were then removed herein. I re-staged his bulbar stricture. Despite passing a 25-[place] cystoscope for dilatation, persistent annular narrowing remains. Therefore, I did make the decision to perform a direct vision internal urethrotomy. Using a 21-[place] [employer] urethrotome visual obturator was utilized to pass to the level of the bulbar stricture. A 12 o'clock incision was made, releasing the annular narrowing, and subsequently, I was able to pass an 18-[place] 10 mL regular Urena without significant issues. This was attached to gravity leg bag. He tolerated the procedure well. He will see me next for cysto stent pull. He is provided a KUB order to be obtained around 8:30. He will follow up with me thereafter. If no significant stone burden along the course of the ureter, we will remove his stent and Urena. Recommend ciprofloxacin for a course of 10 days, tramadol 50 mg #30, Azo p.r.n. He is advised to continue his allopurinol, potassium citrate, and Flomax. Job ID: [id number] [facility]
== END 2019-02-18 13:50 | disposition home or self-care (01) ==
LOC: SDC 08:22
PROVIDERS: ATTEND Urology
PROC: 0TND8ZZ Release Urethra, Via Natural or Artificial Opening Endoscopic (ICD-10-PCS; principal; 2019-02-18)
PROC: 0TF48ZZ Fragmentation in Left Kidney Pelvis, Via Natural or Artificial Opening Endoscopic (ICD-10-PCS; 2019-02-18)
PROC: 0T778DZ Dilation of Left Ureter with Intraluminal Device, Via Natural or Artificial Opening Endoscopic (ICD-10-PCS; 2019-02-18)
DX: N20.0 Calculus of kidney (principal); N35.912 Unspecified bulbous urethral stricture, male; N40.1 Benign prostatic hyperplasia with lower urinary tract symptoms; R35.0 Frequency of micturition; R39.14 Feeling of incomplete bladder emptying; N13.8 Other obstructive and reflux uropathy; I10 Essential (primary) hypertension; M10.9 Gout, unspecified; E11.9 Type 2 diabetes mellitus without complications; E78.5 Hyperlipidemia, unspecified; E66.01 Morbid (severe) obesity due to excess calories; Z68.42 Body mass index [BMI] 45.0-49.9, adult; Z79.82 Long term (current) use of aspirin; Z79.84 Long term (current) use of oral hypoglycemic drugs; Z79.899 Other long term (current) drug therapy; Z88.0 Allergy status to penicillin; Z88.2 Allergy status to sulfonamides
CPT/HCPCS: 74018; 74420; 82365; 88300; C1758; C1769; J1956; J2250; J3010

== ENCOUNTER 2019-02-26 08:02 | Outpatient (CLI) | payer MEDICARE ==
--- NOTE | 2019-02-26 08:29 | RAD ---
EXAM: XR Abdomen 1 View/KUB PROVIDED CLINICAL HISTORY: Renal calculi COMPARISON: 02/18/2019. FINDINGS: There are several calcifications overlying the inferior pole of each renal shadow and midportion righ t renal shadow compatible with bilateral renal calculi. The larger calculus seen at the medial aspect left renal shadow on the prior study is not seen which may be related to interval treatment. A left ureteral stent is now noted in place. Bowel gas pattern is nonspecific. Degenerative changes are seen in the spine. There is prominent righ t hip osteoarthritis with severe narrowing of the right hip joint and prominent subchondral cystic changes and subchondral sclerosis. IMPRESSION: 1. Bilateral nephrolithiasis. 2. Left ureteral stent in place.
== END 2019-02-26 08:03 | disposition home or self-care (01) ==
LOC: RAD 08:02
PROVIDERS: ATTEND Urology
DX: N20.0 Calculus of kidney (principal); Z96.0 Presence of urogenital implants
CPT/HCPCS: 74018

== ENCOUNTER 2019-09-30 06:35 | Outpatient (CLI) | payer MEDICARE, OTHER ==
[2019-09-30 18:10] LABS: PTT 27.9 sec (22.9-36.1); Prothrombin Time 13.4 sec (12.0-14.7)
[2019-09-30 18:14] LABS: Hemoglobin 13.5 g/dL (14.0-18.0); Mean Corpuscular HGB CONC 32.5 g/dL (32.0-36.0); Mean Corpuscular Hemoglobin 28.7 pg (27.0-31.0); Mean Corpuscular Volume 88.1 fL (78.0-98.0); Mean Platelet Volume 8.4 fL (7.4-10.4); Platelet Count 261 thou/uL (130-400); RBC Distribution Width 14.3 % (11.5-14.5); Red Blood Cell (RBC) Count 4.71 mill/uL (4.70-6.10); White Blood Cell (WBC) Count 9.9 thou/uL (4.8-10.8)
[2019-09-30 18:23] LABS: Anion Gap 16 mmol/L (10-20); BUN (Urea Nitrogen) 31 mg/dL (8.4-25.7); Calc. Creatinine Clearance 0 mL/min (70-130); Calcium 9.8 mg/dL (7.8-10.44); Carbon Dioxide 23 mmol/L (22-29); Chloride 104 mmol/L (98-107); Estimated GFR-MDRD 32; Glucose 153 mg/dL (70-105); Potassium 4.7 mmol/L (3.5-5.1); Sodium 138 mmol/L (136-145)
== END 2019-09-30 06:36 | disposition home or self-care (01) ==
LOC: LABBT 06:35
PROVIDERS: ATTEND Urology
DX: Z01.818 Encounter for other preprocedural examination (principal); Z11.59 Encounter for screening for other viral diseases; Z12.5 Encounter for screening for malignant neoplasm of prostate; N20.0 Calculus of kidney; N40.1 Benign prostatic hyperplasia with lower urinary tract symptoms; R35.0 Frequency of micturition; N35.819 Other urethral stricture, male, unspecified site; Z87.39 Personal history of other diseases of the musculoskeletal system and connective tissue
CPT/HCPCS: 80048; 85027; 85610; 85730; U0003; 87635; 93005; 93010

== ENCOUNTER 2019-10-05 06:00 | Day surgery (SDC) | payer MEDICARE ==
[2019-09-30 13:11] VITALS: BMI 47.7
[2019-10-05] MEDS ORDERED: Levofloxacin 500 mg/D5W 100 ml Premix Bag ONE (06:47)
[2019-10-05] MEDS ORDERED: Vancomycin 1 GM/200 ML BAG ONE (06:47)
[2019-10-05] MEDS ORDERED: Iopamidol 50 ML FS ONE (08:49)
[2019-10-05] MEDS ORDERED: Fentanyl 100 MCG/2 ML VIAL ONE (09:00)
[2019-10-05] MEDS ORDERED: Metoprolol Tartrate 5 MG/5 ML VIAL ONE (11:07)
[2019-10-05] MEDS ORDERED: Ondansetron PF 4 MG/2 ML Vial ONE (11:07)
[2019-10-05] MEDS ORDERED: EPHEDRINE 25 MG/5 ML SYRINGE ONE (11:07)
[2019-10-05] MEDS ORDERED: Dexamethasone 20 MG/5 ML VIAL ONE (11:07)
[2019-10-05] MEDS ORDERED: Glycopyrrolate 0.2 MG/ML 5 ML SYRINGE ONE (11:07)
[2019-10-05] MEDS ORDERED: Lidocaine 1% PF 5 ML VIAL ONE (11:07)
[2019-10-05] MEDS ORDERED: PHENYLEPHRINE-NS 100 MCG/ML 10 ML SYRINGE ONE (11:07)
[2019-10-05] MEDS ORDERED: Rocuronium Bromide 10 MG/ML (10ML VIAL) ONE (11:07)
[2019-10-05] MEDS ORDERED: PROPOFOL 200 MG/20 ML VIAL ONE (11:07)
--- NOTE | 2019-10-05 11:11 | RAD ---
EXAM: Retrograde IVP HISTORY: Kidney stones COMPARISON: CT abdomen/pelvis 09/24/2019 FINDINGS/IMPRESSION: Limited intraoperative fluoroscopic views of the retrograde IVP were submitted f or interpretation. There appear to be calcifications projecting over the right renal shadow on the initial view. These calcifications are not seen on lateral views. Eventually, a double-J stent is see n in good position in the right renal collecting system.
[2019-10-05] MEDS ORDERED: Phenazopyridine HCl 97.5 MG TABLET ONE ×2 (11:48)
[2019-10-05] MEDS ORDERED: Oxybutynin 5 MG TAB ONE (11:48)
--- NOTE | 2019-10-05 16:17 | OP ---
DATE OF PROCEDURE: 10/05/2019 PREOPERATIVE DIAGNOSES: 1. A 58-year-old morbidly obese male, BMI of 46 with recurrent renal lithiasis. 2. Right 1.5-cm ureteral calculi at the level of L4. 3. Multiple right renal calculi: Renal pelvic stone 1.2 cm, 1.1 cm, lower pole stone nidus 1 cm, 1 cm, 6 to 7 mm respectively. POSTOPERATIVE DIAGNOSES: 1. A 58-year-old morbidly obese male, BMI of 46 with recurrent renal lithiasis. 2. Right 1.5-cm ureteral calculi at the level of L4. 3. Multiple right renal calculi: Renal pelvic stone 1.2 cm, 1.1 cm, lower pole stone nidus 1 cm, 1 cm, 6 to 7 mm respectively. PROCEDURES PERFORMED: Cysto, right retrograde, 6 x 26 double-J ureteral stent, direct vision internal urethrotomy of bulbar urethral stricture, flexible and rigid ureteroscopy, pyeloscopy, laser lithotripsy of large ureteral calculi, multiple large renal calculi, Modifier 22 SURGEON: Samantha Lagunas DO ANESTHESIA: LMA. COMPLICATIONS: None apparent. SPECIMEN: Stone for chemical analysis. INTRAOPERATIVE FINDINGS: 1. Recurrent bulbar urethral stricture caliber about 10-Turkmen caliber, subsequently dilated with 25-Turkmen due to persistent narrowing, direct vision internal urethrotomy performed. 2. Large right mid ureteral calculi at the level of L3-L4. 3. Multiple large right renal pelvic lower pole and upper pole calculi. 4. Urethral stricture caliber about 10-to 12-Turkmen caliber. INDICATIONS FOR PROCEDURE AND HISTORY: Mr. Mancia is a 58-year-old morbidly obese male, he is not a candidate for PCNL due to morbid obesity, he is known to me due to multiple recurrent kidney stone. He does have a history of urethral stricture, likely due to passage of multiple ureteral calculi as he presented previously with a stone at the level of the meatus. His previous stone moiety is calcium oxalate monohydrate, phosphate, dihydrate, and moiety. He presents today for the above procedure due to large right mid ureteral calculi. Risks and complications of the procedure were reviewed with him in detail including, but not limited to, bleeding, pain, infection, injury to adjacent organs, urosepsis, stricture formation, possible secondary procedure, likely due to large stone debris. DESCRIPTION OF PROCEDURE: After an informed consent was signed, the patient was taken to the operating room, placed in a dorsal lithotomy position with the genital area prepped and draped in the usual surgical sterile fashion. A 21-Turkmen cystoscope was able to be passed without significant issues. At the level of the bulbar urethra, there was a 60-47-Yqyzhe bulbar stricture, which we were able to pass with a 21-Turkmen cystoscope without difficulty. The prostatic urethra demonstrated coapting lateral lobes with minimal BPH component. The bladder was entered, which demonstrated no stone nidus. The UO was identified in normal anatomical location. A 5-Turkmen open-ended catheter was utilized for retrograde pyelogram, which demonstrated a large obstructing proximal ureteral calculi, which was faintly radiopaque. A 0.035 Sensor wire was placed, however, it required some manipulation due to large stone. We attempted to treat the stone with the rigid ureteroscope, I was able to access the distal ureter, however, due to tight suspensory ligament and morbid obesity, I was unable to pass the semi-rigid safely to the level of the stone. Therefore, we attempted to pass a second wire 0.035 Sensor wire to the level of the upper pole. Given large stone nidus, I was unable to pass a 2nd wire all the way up into the kidney. We tried multiple times with a dual-lumen access sheath, retrograde pyelogram was intermittently performed. Due to large stone, I was able to get the 2nd access to the level of the renal pelvis. At this time, we did bury the wire to the level of the stone at the proximal ureter and we passed the flexible ureteroscope to the level of the stone. With this, I was able to visualize the stone with the flexible ureteroscope and using 200 micron laser fiber at 1.0 joules at dust setting, we laser lithotripsied the large right proximal ureteral calculi. The stone appeared soft and most of the stone was fragmented. Some of the stone debris did migrate into the renal pelvis. With the ureter cleared of stone debris, I was able to access to the renal pelvis and there was significant amount of fragmented powder-like dust debris within the renal pelvis and visualization was poor. We steadfast observing the renal pelvis with irrigation and I was able to see further stone debris. At this time, a 0.035 Super Stiff wire was placed into the right upper pole and 11/13-Turkmen x 46 navigator was passed to the level of the proximal ureter with ease. Flexible ureteroscope was then advanced over the working wire and the working wire subsequently removed. With irrigation of the renal pelvis, we were able to identify that there was a large stone nidus in the upper, mid, and lower pole. We laser lithotripsied the lower pole stone debris , and a second two other nidus is in the mid to lower pole posterior calyx. There was a large stone debris in the upper pole, which probably had some migration of the renal pelvic stone. We laser lithotripsied these. As there was significant amount of stone burden, dusted, visualization at one point became poor, we did make significant progress and laser lithotripsing his renal pelvic and lower pole stone as well as his ureteral stone. There were multiple tiny dust-like stone debris. We basket some of these for stone analysis. He will require second-look ureteroscopy, pyeloscopy given large stone nidus and dusted stone debris. There was some stone nidus in the ureter, which we basket extracted with the rigid ureteroscope. No ureteral mucosa injury was noted. Most of the stone debris on visual inspection appeared to be dust-like debris. However, as there was large stone dusted and lasered it was suboptimally evaluated regarding obvious large stone debris that may remain. The scope was then maneuvered to the level of the bladder with the wire secured. A 6 x 26 double-J ureteral stent was passed over the safety wire and a wire subsequently removed with good coil in the proximal kidney and the bladder. At this time, we survey his urethral stricture. We tried to dilate this with a 25 sheath, however, persistent annular narrowing persisted. Therefore, using [facility] 21-Turkmen DVIU cold knife, 12 o'clock incision was made releasing the annular band and an 18-Turkmen regular 10 mL Urena catheter was able to be passed without significant issues and 10 mL insufflated. He tolerated the procedure well. An 18-Turkmen 10 mL attached to gravity leg bag. He is discharged with dual antibiotic therapy due to preop urine culture demonstrating Staph epidermidis. He is discharged with ciprofloxacin and doxycycline for 10 days, Azo p.r.n., Flomax refill #30, tramadol #30 one to two p.o. q.6 hours p.r.n. He will follow up with me this Saturday to preop for staged ureteroscopy, laser lithotripsy, possibly on October 13, pending reassessment. If so, he will remain on prophylactic antibiotic until then until repeat urine culture can be reviewed. He is instructed regarding increase water consumption 2 to 3 L per day to clear any dust-like stone debris. Job ID: [id number] MTDD
== END 2019-10-05 13:14 | disposition home or self-care (01) ==
LOC: SDC 06:00
PROVIDERS: ATTEND Urology
PROC: 0TND8ZZ Release Urethra, Via Natural or Artificial Opening Endoscopic (ICD-10-PCS; principal; 2019-10-05)
PROC: 0TC38ZZ Extirpation of Matter from Right Kidney Pelvis, Via Natural or Artificial Opening Endoscopic (ICD-10-PCS; 2019-10-05)
PROC: 0TC68ZZ Extirpation of Matter from Right Ureter, Via Natural or Artificial Opening Endoscopic (ICD-10-PCS; 2019-10-05)
PROC: 0T768DZ Dilation of Right Ureter with Intraluminal Device, Via Natural or Artificial Opening Endoscopic (ICD-10-PCS; 2019-10-05)
DX: N20.2 Calculus of kidney with calculus of ureter (principal); N35.912 Unspecified bulbous urethral stricture, male; N40.1 Benign prostatic hyperplasia with lower urinary tract symptoms; R35.0 Frequency of micturition; M10.9 Gout, unspecified; E78.5 Hyperlipidemia, unspecified; I12.9 Hypertensive chronic kidney disease with stage 1 through stage 4 chronic kidney disease, or unspecified chronic kidney disease; E11.22 Type 2 diabetes mellitus with diabetic chronic kidney disease; N18.9 Chronic kidney disease, unspecified; E66.01 Morbid (severe) obesity due to excess calories; Z68.42 Body mass index [BMI] 45.0-49.9, adult; Z79.82 Long term (current) use of aspirin; Z79.84 Long term (current) use of oral hypoglycemic drugs; Z79.899 Other long term (current) drug therapy; Z88.0 Allergy status to penicillin; Z88.2 Allergy status to sulfonamides
CPT/HCPCS: 74420; 82365; 88300; J1100; J1956; J2001; J2405; J2704; J3010; J3370; Q9967

== ENCOUNTER 2019-10-14 13:48 | Outpatient (CLI) | payer MEDICARE, OTHER ==
[2019-10-14 18:05] LABS: #Basophils 0.1 thou/uL (0.0-0.2); #Eosinphils 0.4 thou/uL (0.0-0.7); #Lymphocytes 1.7 thou/uL (1.20-3.40); #Monocytes 1.1 thou/uL (0.11-0.59); #Neutrophils 7.7 thou/uL (1.40-6.50); %Basophils 0.7 % (0.0-1.0); %Eosinophils 3.4 % (0.0-10.0); %Lymphocytes 15.8 % (21.0-51.0); %Monocytes 9.8 % (0.0-10.0); %Neutrophils 70.2 % (42.0-75.0); Hemoglobin 14.5 g/dL (14.0-18.0); Mean Corpuscular HGB CONC 34.5 g/dL (32.0-36.0); Mean Corpuscular Hemoglobin 30.3 pg (27.0-31.0); Mean Corpuscular Volume 87.8 fL (78.0-98.0); Mean Platelet Volume 9.1 fL (7.4-10.4); Platelet Count 254 thou/uL (130-400); RBC Distribution Width 14.3 % (11.5-14.5); Red Blood Cell (RBC) Count 4.79 mill/uL (4.70-6.10)
[2019-10-14 18:11] LABS: Anion Gap 16 mmol/L (10-20); BUN (Urea Nitrogen) 27 mg/dL (8.4-25.7); Calc. Creatinine Clearance 0 mL/min (70-130); Calcium 10.1 mg/dL (7.8-10.44); Carbon Dioxide 21 mmol/L (22-29); Chloride 105 mmol/L (98-107); Estimated GFR-MDRD 33; Glucose 126 mg/dL (70-105); Potassium 4.6 mmol/L (3.5-5.1); Sodium 137 mmol/L (136-145)
[2019-10-14 18:18] LABS: PTT 28.6 sec (22.9-36.1); Prothrombin Time 13.2 sec (12.0-14.7)
[2019-10-15 12:16] LABS: SARS-CoV-2 MS2 Positive; SARS-CoV-2 N Gene Negative; SARS-CoV-2 S Gene Negative; SARS-CoV-2 orf1ab Negative
== END 2019-10-14 13:49 | disposition home or self-care (01) ==
LOC: LABBT 13:48
PROVIDERS: ATTEND Urology
DX: Z01.818 Encounter for other preprocedural examination (principal); Z11.59 Encounter for screening for other viral diseases; N20.1 Calculus of ureter
CPT/HCPCS: 80048; 85025; 85610; 85730; U0003; 81001; 87086; 87635; 93005; 93010

== ENCOUNTER 2019-10-19 05:52 | Day surgery (SDC) | payer MEDICARE ==
[2019-10-14 14:34] VITALS: BMI 47.8
[2019-10-19] MEDS ORDERED: Vancomycin 1 GM/200 ML BAG ONE (06:15)
[2019-10-19] MEDS ORDERED: Levofloxacin 500 mg/D5W 100 ml Premix Bag ONE (06:15)
[2019-10-19] MEDS ORDERED: Iopamidol 50 ML FS ONE (07:11)
--- NOTE | 2019-10-19 07:58 | RAD ---
EXAM: Single view of the abdomen HISTORY: Preoperative exam. Kidney stones. COMPARISON: 02/26/2019 FINDINGS: Single view of the abdomen shows a nonspecific, nonobstructive bowel gas pattern. Small ashley cifications are seen projecting over both renal shadows. There is a right-sided ureteral stent which appears in good position. The bones are unremarkable. IMPRESSION: Bilateral nephrolithiasis
[2019-10-19] MEDS ORDERED: Fentanyl 100 MCG/2 ML VIAL ONE (08:03)
--- NOTE | 2019-10-19 10:30 | RAD ---
EXAM: XR IVP Retrograde PROVIDED CLINICAL HISTORY: Right ureteral stone. COMPARISON: 10/05/2019 FINDINGS/IMPRESSION: Initial image demonstrates a right ureteral stent in place. Subsequent imaging demonstrates catheter and guidewire in place overlying the right ureter in the right renal collecting system. Correlation with intraoperative findings is recommended.
[2019-10-19] MEDS ORDERED: Phenazopyridine HCl 97.5 MG TABLET ONE (10:58)
[2019-10-19] MEDS ORDERED: Oxybutynin 5 MG TAB ONE (10:58)
--- NOTE | 2019-10-19 11:33 | OP ---
DATE OF PROCEDURE: 10/19/2019 PREOPERATIVE DIAGNOSES: 1. A 58-year-old morbidly obese male, BMI of 46 with recurrent urolithiasis. 2. History of right 1.5 cm ureteral calculi at the level of 4, status post ureteroscopy. 3. Multiple right renal calculi: History of renal pelvic stone 1.2 cm, 1.1 cm second renal pelvic stone, lower pole stone 1 cm, 1 cm, 7 mm respectively. PROCEDURES PERFORMED: Cystoscopy, right retrograde, 6 x 26 double-J ureteral stent, retrograde pyelogram, ureteroscopy, pyeloscopy, laser lithotripsy of large right renal stone moiety, multiple large dense in nature, consistent with calcium phosphate, modifier 22 due to extend of services, due to large renal stone burden. ANESTHESIA: LMA. COMPLICATIONS: None apparent. SPECIMENS: None. INTRAOPERATIVE FINDINGS: 1. Recent bulbar stricture treated with DVIU, in which the cystoscope 21-Luxembourger was able to be passed. 2. At the end of the procedure, 16-Luxembourger alvarez catheter passed without difficulty. 3. Pyeloscopy demonstrating multiple stone debris, most of which in the upper pole, mid pole stone x2, questionable right lower pole infundibular stenosis, with right lower pole stone nidus in which it was inapproachable due to acute infundibular angle. INDICATIONS FOR PROCEDURE AND HISTORY: Mr. Mancia is a 58-year-old morbidly obese male, given his body habitus, he is a poor candidate for PCNL. He has had recurrent kidney stone, has been fully advised regarding diet modification as well as medical therapy for recurrent kidney stones. He presents today for staged intervention of multiple large right renal calculi, recently he presented with a large 1.5-cm ureteral calculi, which was treated and presents today for staged evaluation of multiple large right renal calculi. Risks and complications of the procedure were reviewed with him in detail including, but not limited to, bleeding, pain, infection, injury to adjacent organs, urosepsis. All questions answered to his satisfaction, desired to proceed without reservation. DESCRIPTION OF PROCEDURE: After an informed consent was signed, the patient was taken to the operating room, placed in a dorsal lithotomy position with the genital area prepped and draped in the usual surgical sterile fashion. A 21-Luxembourger cystoscope was utilized for cystoscopy, which demonstrated normal anterior urethra. At the level of the bulbar urethra, there were changes consistent with prior DVIU. The urethral caliber was approximately 18 and 20-Luxembourger in which I was able to pass the scope without significant issues. The bladder was entered, which demonstrated normal bladder mucosa with no evidence of stone nidus. At this time, the previously placed ureteral stent was removed to level of meatus and a 0.035 Sensor wire was placed to the right stent into the upper pole. A rigid ureteroscopy was performed at this time, demonstrating that there was no evidence of distal ureteral calculi. Given his morbid obesity body habitus,, I was unable to pass the rigid ureteroscope beyond the mid sacrum. As such, we passed a 10-Luxembourger dual-lumen access sheath at this time, and a retrograde pyelogram demonstrated capacious right ureter, this passed without difficulty to the level of the UPJ, a second safety wire 0.035 Super Stiff was passed into the right upper pole. At this time, a 13/15 cm x 46 cm navigator was passed without difficulty as he was passively dilated. A flexible ureteroscope was then passed, digital, disposal. Upon the pyeloscopy, he had multiple stone debris mostly in the upper pole, which were dust-like stone debris. We were steadfast and held our laser fiber at 273 microns at 1.0 joules and we laser lithotripsied further and turning them to just debris. We did stages of his other calyces. In the mid to lower pole, there were two calyces housing multiple stone debris. We were able to basket extract these, which were multiple stone debris in the mid calyx x2 in which basket extraction was performed and given our navigated at 15-Luxembourger, we were able to successfully basket extract most of the stone nidus in the mid calyx x2. Clearance of the stone burden was noted in the mid pole x2. At the most lower pole infundibulum, I can see what may be another calyx. The infundibular opening was somewhat tight, however, despite not having a laser fiber, the angle was such that I could just look at the os of the calyx, however , unable to engage further. A retrograde pyelogram was performed, demonstrated no evidence of extravasation of contrast into this lower pole calyx. As I am unable to engage the most lower pole infundibulum, with possibly of infundibular stenosis , I did not further engage because the scope would not advance and appropriately engage. I did re-staged his upper pole collecting system dust-like debris, we laser lithotripsied this further. We used Zero Tip Nitinol basket to basket a lot of the debris in the lower and the upper pole. At the end of the procedure, what I was able to see was mostly dust-like stone debris. Given elapsed time with multiple stones treated as I was unable to further basket extract most of the stone was dust-like stone debris, procedure was terminated. At this time, we surveyed the ureter, which demonstrated no evidence of ureteral stone and stone nidus of concern. At the previous obstructing impacted stone at the proximal ureter, there was mucosal irritation consistent with an impacted stone with a flap of mucosa from the stone previously treated. I was able to easily maneuver the scope passed this without significant trauma. A 6 x 26 double-J ureteral stent with distal tail was placed without difficulty and all wires were removed. The patient tolerated the procedure well and transported to the recovery room in stable condition. He is discharged with Flomax refill #30, Azo p.r.n., ciprofloxacin for 7 days, tramadol #30. He is to see me next October 26 at 1:00 p.m. Our office will coordinate a CT of the abdomen and pelvis stone protocol to be obtained in the morning of the appointment. Pending staging CT, I will discuss with the patient regarding cysto stent pull versus possible staged ureteroscopy. Job ID: [id number] MTDD
[2019-10-19] MEDS ORDERED: EPHEDRINE 25 MG/5 ML SYRINGE ONE (11:53)
[2019-10-19] MEDS ORDERED: Rocuronium Bromide 10 MG/ML (10ML VIAL) ONE (11:53)
[2019-10-19] MEDS ORDERED: Ondansetron PF 4 MG/2 ML Vial ONE (11:53)
[2019-10-19] MEDS ORDERED: Glycopyrrolate 0.2 MG/ML 5 ML SYRINGE ONE (11:53)
[2019-10-19] MEDS ORDERED: Lidocaine 1% PF 5 ML VIAL ONE (11:53)
[2019-10-19] MEDS ORDERED: Dexamethasone 20 MG/5 ML VIAL ONE (11:53)
[2019-10-19] MEDS ORDERED: PROPOFOL 200 MG/20 ML VIAL ONE (11:53)
[2019-10-19] MEDS ORDERED: PHENYLEPHRINE-NS 100 MCG/ML 10 ML SYRINGE ONE (11:53)
== END 2019-10-19 11:56 | disposition home or self-care (01) ==
LOC: SDC 05:52
PROVIDERS: ATTEND Urology
PROC: 0TC38ZZ Extirpation of Matter from Right Kidney Pelvis, Via Natural or Artificial Opening Endoscopic (ICD-10-PCS; principal; 2019-10-19)
PROC: 0T768DZ Dilation of Right Ureter with Intraluminal Device, Via Natural or Artificial Opening Endoscopic (ICD-10-PCS; 2019-10-19)
DX: N20.0 Calculus of kidney (principal); M10.9 Gout, unspecified; E78.5 Hyperlipidemia, unspecified; I12.9 Hypertensive chronic kidney disease with stage 1 through stage 4 chronic kidney disease, or unspecified chronic kidney disease; E11.22 Type 2 diabetes mellitus with diabetic chronic kidney disease; N18.9 Chronic kidney disease, unspecified; N40.1 Benign prostatic hyperplasia with lower urinary tract symptoms; R35.0 Frequency of micturition; E66.01 Morbid (severe) obesity due to excess calories; Z68.42 Body mass index [BMI] 45.0-49.9, adult; Z79.82 Long term (current) use of aspirin; Z79.84 Long term (current) use of oral hypoglycemic drugs; Z79.899 Other long term (current) drug therapy; Z88.0 Allergy status to penicillin; Z88.2 Allergy status to sulfonamides; Z98.890 Other specified postprocedural states
CPT/HCPCS: 74018; 74420; J1956; J3010; J3370; Q9967

== ENCOUNTER 2019-10-27 10:58 | Outpatient (CLI) | payer MEDICARE ==
--- NOTE | 2019-10-27 11:59 | CT ---
Exam: Abdomen CT without contrast Pelvic CT without contrast HISTORY: Renal calculi. Right renal stent is ago. COMPARISON: 06/05/2018 FINDINGS: Abdomen CT: Lung bases:No masses or consolidation Heart size: Normal heart size Aorta: Normal caliber aorta. No periaortic fat stranding Solid organs: Limited evaluation by the lack of IV contrast. There is hepatic steatosis with small fo ci of hepatic sparing, unchanged. Grossly no solid organ abnormality Lymph nodes: No gastrohepatic, retrocrural or periportal lymphadenopathy Gallbladder: No CT evidence of cholelithiasis Mesentery: No mass, lymphadenopathy, free air or free fluid Kidneys: Redemonstration of bilateral intrarenal calculi without associated obstructive uropathy. Pre vious noted calculus in the right renal pelvis is no longer evident. There is a right-sided double-J ureteral stent. Proximal pigtail is in the right renal pelvis. Distal pigtail is in the urin ani bladder. There are no calculi along the course of the right. Bilaterally no obstructive uropathy. Alimentary canal: Limited evaluation by the lack of oral contrast. No evidence of a bowel. Normal glenna ction. Appendix. Scattered fecal material in a nondistended, nondilated colon. Occasional diverticulosis. No diverticulitis. CT PELVIS: No mass, adenopathy, free air or free fluid. Urinary bladder: No calcifications within the urinary bladder. Osseous structures: No lytic or blastic lesions Incidentals: Small anterior abdominal wall hernia containing mesenteric IMPRESSION: 1. Right-sided stent as defined above. 2. Bilaterally no obstructive uropathy. 3. Bilateral nonobstructing intrarenal calculi. Previous noted thrombus in the right renal pelvis is no longer evident. Correlate for recent intervention including
== END 2019-10-27 10:59 | disposition home or self-care (01) ==
LOC: CT 10:58
PROVIDERS: ATTEND Urology
DX: N20.0 Calculus of kidney (principal); E66.01 Morbid (severe) obesity due to excess calories; Z96.0 Presence of urogenital implants
CPT/HCPCS: 74176; 81001; 87086

== ENCOUNTER 2019-11-13 06:41 | Outpatient (CLI) | payer MEDICARE, OTHER ==
--- NOTE | 2019-11-13 07:50 | RAD ---
Chest 2 views HISTORY: Preop. COMPARISON: 11/06/2018. FINDINGS: Cardiac silhouette and pulmonary vasculature are unremarkable. Mediastinum is midline. No lobar consolidation, pneumothorax, or pleural fluid. Mild leftward convex curvature of the lower thoracic spine is similar in appearance to the prior study. IMPRESSION : No active cardiopulmonary abnormalities are demonstrated.
[2019-11-13 10:12] LABS: Hemoglobin 14.1 g/dL (14.0-18.0); Mean Corpuscular HGB CONC 32.1 g/dL (32.0-36.0); Mean Corpuscular Hemoglobin 28.5 pg (27.0-31.0); Mean Corpuscular Volume 88.8 fL (78.0-98.0); Mean Platelet Volume 9.2 fL (7.4-10.4); Platelet Count 233 thou/uL (130-400); RBC Distribution Width 13.5 % (11.5-14.5); Red Blood Cell (RBC) Count 4.94 mill/uL (4.70-6.10); White Blood Cell (WBC) Count 8.3 thou/uL (4.8-10.8)
[2019-11-13 10:16] LABS: PTT 25.4 sec (22.9-36.1)
[2019-11-13 11:12] LABS: Anion Gap 15 mmol/L (10-20); BUN (Urea Nitrogen) 28 mg/dL (8.4-25.7); Calc. Creatinine Clearance 0 mL/min (70-130); Calcium 10.1 mg/dL (7.8-10.44); Carbon Dioxide 21 mmol/L (22-29); Chloride 102 mmol/L (98-107); Estimated GFR-MDRD 35; Glucose 371 mg/dL (70-105); Potassium 4.6 mmol/L (3.5-5.1); Sodium 133 mmol/L (136-145)
[2019-11-14 12:28] LABS: SARS-CoV-2 MS2 Positive; SARS-CoV-2 N Gene Negative; SARS-CoV-2 S Gene Negative; SARS-CoV-2 by NAA Not Detected (NotDetected); SARS-CoV-2 orf1ab Negative
--- NOTE | 2019-11-18 16:07 | EKG ---
Test Reason : Blood Pressure : / mmHG Vent. Rate : 092 BPM Atrial Rate : 092 BPM P-R Int : 132 ms QRS Dur : 086 ms QT Int : 326 ms P-R-T Axes : 043 088 041 degrees QTc Int : 403 ms Normal sinus rhythm Normal ECG When compared with ECG of 14-OCT-2019 15:13, (Unconfirmed) No significant change was found Confirmed by ANÍBAL MARTINEZ M.D. ([id number]) on 11/18/2019 4:06:45 PM Referred By: BRAD Confirmed By:ANÍBAL MARTINEZ M.D.
== END 2019-11-13 06:42 | disposition home or self-care (01) ==
LOC: LABBT 06:41
PROVIDERS: ATTEND Urology
DX: Z01.818 Encounter for other preprocedural examination (principal); Z11.59 Encounter for screening for other viral diseases; Z12.5 Encounter for screening for malignant neoplasm of prostate; N18.9 Chronic kidney disease, unspecified; N35.819 Other urethral stricture, male, unspecified site; R35.0 Frequency of micturition; N20.2 Calculus of kidney with calculus of ureter; N40.1 Benign prostatic hyperplasia with lower urinary tract symptoms; Z87.39 Personal history of other diseases of the musculoskeletal system and connective tissue
CPT/HCPCS: 71046; 80048; 85027; 85610; 85730; 93005; U0003; 87635; 93010

== ENCOUNTER 2019-11-18 05:31 | Day surgery (SDC) | payer MEDICARE ==
[2019-11-11 11:57] VITALS: BMI 46.5
[2019-11-18] MEDS ORDERED: Vancomycin 1 GM/200 ML BAG ONE (06:14)
[2019-11-18] MEDS ORDERED: Levofloxacin 500 mg/D5W 100 ml Premix Bag ONE (06:14)
[2019-11-18] MEDS ORDERED: Fentanyl 100 MCG/2 ML VIAL ONE (06:17)
[2019-11-18] MEDS ORDERED: Famotidine/PF 20 mg/2ml Vial ONE (06:18)
[2019-11-18] MEDS ORDERED: SUGAMMADEX SODIUM 500 MG/5 ML VIAL ONE (06:47)
[2019-11-18] MEDS ORDERED: Iopamidol 50 ML FS ONE (07:06)
[2019-11-18] MEDS ORDERED: Ondansetron HCl/PF 4 MG/2 ML Vial IVP PRN (07:46)
[2019-11-18] MEDS ORDERED: Promethazine HCl 25 MG/ML VIAL SLOW IVP PRN (07:46)
--- NOTE | 2019-11-18 08:22 | RAD ---
KUB: INDICATION: History of preop. COMPARISON: Prior exam dated 10/19/2019. FINDINGS: Right double-J ureteral stent is unchanged in position. There is bilateral nonobstructing renal calc guilherme. Bowel gas pattern is unobstructed. There is advanced right and moderate left hip osteoarthrosi s. IMPRESSION: Bilateral nephrolithiasis. POS: BH
--- NOTE | 2019-11-18 08:47 | RAD ---
EXAM: Retrograde IVP HISTORY: Kidney stones COMPARISON: CT abdomen/pelvis 10/27/2019 FINDINGS/IMPRESSION: Limited intraoperative fluoroscopic views of the retrograde IVP were submitted f or interpretation. Contrast is seen in the right renal collecting system with mild right hydronephrosis. A lithotripsy device is placed on the images provided. No obvious calcifications are appreciated on these limited fluoroscopic views. Eventually, a ureteral stent is seen in good position.
[2019-11-18] MEDS ORDERED: PROPOFOL 200 MG/20 ML VIAL ONE (09:09)
[2019-11-18] MEDS ORDERED: Rocuronium Bromide 10 MG/ML (10ML VIAL) ONE (09:09)
[2019-11-18] MEDS ORDERED: Succinylcholine Chloride 20 MG/ML 10 ml SYRINGE FS ONE (09:09)
[2019-11-18] MEDS ORDERED: Lidocaine 1% PF 5 ML VIAL ONE (09:09)
[2019-11-18] MEDS ORDERED: Metoclopramide HCl 10 MG/2 ML VIAL ONE (09:09)
[2019-11-18] MEDS ORDERED: Ondansetron PF 4 MG/2 ML Vial ONE (09:09)
[2019-11-18] MEDS ORDERED: PHENYLEPHRINE-NS 100 MCG/ML 10 ML SYRINGE ONE (09:09)
[2019-11-18] MEDS ORDERED: Oxybutynin 5 MG TAB ONE (09:11)
[2019-11-18] MEDS ORDERED: Phenazopyridine HCl 97.5 MG TABLET ONE (09:13)
--- NOTE | 2019-11-18 10:32 | OP ---
DATE OF PROCEDURE: 11/18/2019 PREOPERATIVE DIAGNOSES: 1. Morbidly obese male with history of recurrent kidney stone. 2. Recent CT scan demonstrating right renal lithiasis: 3 to 4 mm stone x2, lower pole stone 8 mm, second lower pole stone about 1 cm. 3. Left 3 mm lower pole stone, 6 mm second lower pole stone. POSTOPERATIVE DIAGNOSES: 1. Morbidly obese male with history of recurrent kidney stone. 2. Recent CT scan demonstrating right renal lithiasis: 3 to 4 mm stone x2, lower pole stone 8 mm, second lower pole stone about 1 cm. 3. Left 3 mm lower pole stone, 6 mm second lower pole stone. PROCEDURES PERFORMED: Cystoscopy, direct vision internal urethrotomy of bulbar stricture, complex Urena catheter, 18-E[place]an [place] tip over guidewire, stent exchange, flexible ureteroscopy, pyeloscopy, laser lithotripsy, basket extraction of stone debris ANESTHESIA: general. COMPLICATIONS: None apparent. DISPOSITION: To recovery room in stable condition. SPECIMEN: None. INTRAOPERATIVE FINDINGS: 1. Minimal BPH component. 2. Bladder unremarkable. 3. Bulbar urethral stricture, caliber very small, lumen difficult to identify if there was a mucosal flap prior to surgical intervention. DVIU performed uneventfully. 4. No evidence of ureteral calculi. 5. Multiple stone debris in the right mid to upper pole consistent with recent laser lithotripsy. Stone debris is dust-like stone debris. 6. Possible right lower pole infundibulum stenosis with possible lower pole stone. Lower pole stone inapproachable due to infundibular angle. No obvious other stone seen in the lower pole, multiple Obi's plaques. INDICATIONS FOR PROCEDURE AND HISTORY: Mr. Mancia is a 58-year-old morbidly obese male, noncompliant with diet regimen, presents with recurrent kidney stone. He previously underwent similar stage intervention of multiple right ureteral and renal calculi and his stone debris was dusted into stone debris. He has tendency for decreased activity, does not push fluids and most of the sediment debris were monitored for spontaneous passage. They were dust-like debris. He re-presented with a large right proximal ureteral calculi and recurrence of large right renal stones, therefore underwent staged ureteroscopy. He presents today for stage intervention. Risks and complications of procedures have been fully discussed with the patient including, but not limited to, bleeding, pain, infection, injury to adjacent organs, ureteral stricture, recurrence of stricture disease that he had previously was discussed, possible risk of sepsis. Although, we have a negative urine culture from October 26, he did not obtain a repeat urine culture and he has been fully consulted on risk of infection, sepsis as a complication. All questions answered to his satisfaction and he desired to proceed. DESCRIPTION OF PROCEDURE: After an informed consent was signed, the patient was taken to the operating room, placed in a dorsal lithotomy position with the genital area prepped and draped in the usual surgical sterile fashion. A 21-Eritrean cystoscope was utilized for cystoscopy. Upon entering the level of the bulbar urethra prior to any manipulation, there was a mucosal flap at the level of the bulbar stricture. The true lumen was difficult to see. However, I probed the area with a 0.035 Sensor wire, was able to find the true lumen and access the bladder without significant issues. I was able to access the bladder with the wire and the bladder confirmed on fluoroscopy and a 21-Eritrean sheath passed without difficulty. Prostatic urethra demonstrated minimal BPH with no significant obstruction. Bladder grossly unremarkable. Previously placed right ureteral stent was removed to the level of the meatus and a 0.035 Sensor wire was placed into the right upper pole. A 13/15 cm x 15-Eritrean x 46 cm navigator was passed into the right proximal ureter with ease. A flexible ureteroscope, disposable scope was then passed into the renal pelvis. I surveyed the collecting system, which demonstrated in the renal pelvis in the mid and upper pole sedimentous debris, which was mostly just dust caliber. I surveyed each calyx to look for any obvious large stone debris of concern. I did obtain a repeat pyelogram with the ureteroscope flexed into the lower pole as there appears to be an infundibular stenosis in the right lower pole, in which possibly an edge of the stone could be seen. We probed the area and incised with laser. The stone was difficult to see and moreover the angle was very difficult to engage given right lower pole. Despite maximal flexion, I could not actively engage to further identify stone nidus. He may have an infundibular stenosis with a stone behind it. However, this was inapproachable. I surveyed the residual right lower pole and I did not see any further stone. He may have a parenchymal base stone versus papilla based calcification not approachable at this time. I did survey his mid and upper pole again and most of his sedimentous debris was in the right to mid upper pole. We used a 273 cm micron laser fiber and we laser lithotripsied further dust-like stone debris. I attempted to basket extract multiple stone debris, which we did and most of them were very small and adherent, fluffy nature. We basket extracted some, however, it was difficult to basket as they were dust-like stone debris. Therefore, we set at the level of the dust-like stone debris in the upper to mid pole and laser lithotripsied further. Upon laser lithotripsy what remained were dust-like powder like debris. We re-attempted to basket, however, they were too small to basket. He has tendency to not be ambulatory, and not drinking enough fluids passed the stone debris, which was concerning. However, as they were unable to be basket extracted, too small to laser lithotripsy as they were dust-like stone debris. Procedure for further laser lithotripsy was terminated. I surveyed the ureter, which demonstrated no evidence of ureteral stone debris of concern. Previous right mid ureteral stone location was seen with some bullous edema, but no stone nidus was seen. A 6 x 26 double-J ureteral stent was passed without difficulty. I re-staged his bulbar urethra, it demonstrated persistent annular narrowing. Therefore, direct vision internal urethrotomy was performed at 12 o'clock. An 18-[place]an [place] tip catheter was placed over guidewire with ease and attached to gravity leg bag. Given his morbid obesity, I would like to proceed with a staging CT scan next Saturday, November 24, which we will schedule. I will see him November 25 at 8:15 for cysto , stent pull pending review of CT. If he had no obvious stone debris in the ureter, I will pull the stent, as the stone was dust-like stone debris and he needs to drink plenty of water. He was discharged on tramadol 50 mg #30 one p.o. p.r.n., ciprofloxacin one p.o. b.i.d. x10 days, Azo p.r.n. Job ID: [id number] MTDD
== END 2019-11-18 10:40 | disposition home or self-care (01) ==
LOC: SDC 05:31
PROVIDERS: ATTEND Urology
PROC: 0TC38ZZ Extirpation of Matter from Right Kidney Pelvis, Via Natural or Artificial Opening Endoscopic (ICD-10-PCS; principal; 2019-11-18)
PROC: 0T768DZ Dilation of Right Ureter with Intraluminal Device, Via Natural or Artificial Opening Endoscopic (ICD-10-PCS; 2019-11-18)
PROC: 0TND8ZZ Release Urethra, Via Natural or Artificial Opening Endoscopic (ICD-10-PCS; 2019-11-18)
DX: N13.2 Hydronephrosis with renal and ureteral calculous obstruction (principal); N35.912 Unspecified bulbous urethral stricture, male; N40.1 Benign prostatic hyperplasia with lower urinary tract symptoms; R35.0 Frequency of micturition; I12.9 Hypertensive chronic kidney disease with stage 1 through stage 4 chronic kidney disease, or unspecified chronic kidney disease; E11.22 Type 2 diabetes mellitus with diabetic chronic kidney disease; N18.9 Chronic kidney disease, unspecified; M10.9 Gout, unspecified; E78.5 Hyperlipidemia, unspecified; M16.0 Bilateral primary osteoarthritis of hip; E66.01 Morbid (severe) obesity due to excess calories; Z68.42 Body mass index [BMI] 45.0-49.9, adult; Z91.11 Patient's noncompliance with dietary regimen; Z79.84 Long term (current) use of oral hypoglycemic drugs; Z79.899 Other long term (current) drug therapy; Z88.0 Allergy status to penicillin; Z88.2 Allergy status to sulfonamides
CPT/HCPCS: 74018; 74420; J1956; J2405; J2704; J2765; J3010; J3370; Q9967; S0028

== ENCOUNTER 2019-11-25 12:52 | Outpatient (CLI) | payer MEDICARE ==
--- NOTE | 2019-11-25 14:27 | CT ---
CT ABDOMEN AND PELVIS WITHOUT CONTRAST: 11/25/19 INDICATIONS: Renal calculus. Right ureteral stent. Comparison made to recent CT abdomen and pelvis 10/27/19. FINDINGS: Lung bases clear. Liver, spleen, pancreas unremarkable. Right ureteral stent remains in place. Numerous small gas pockets in the upper collecting structures of the right kidney and tiny gas pockets seen along the superior portion of this stent within the kyleigh al pelvis and upper ureter. Stent appears adequately positioned. The upper pigtail resides at the UPJ . There is no hydronephrosis. Nonobstructing calculi in the upper collecting structures of both kidneys again noted. The left urete r is normal in appearance. The bladder is contracted and not adequately evaluated. There is a urethral catheter in place with tip seen within the bladder lumen. Bowel loops unremarkable. Appendix is normal. Aorta normal caliber. Nonspecific lymph nodes again not ed. No free fluid or mass. IMPRESSION: Bilateral nonobstructing renal calculi. Right ureteral stent as described above. POS: AGW
== END 2019-11-25 12:53 | disposition home or self-care (01) ==
LOC: BICCT 12:52
PROVIDERS: ATTEND Urology
DX: N20.0 Calculus of kidney (principal)
CPT/HCPCS: 74176

== ENCOUNTER 2020-02-02 09:43 | Outpatient (CLI) | payer MEDICARE ==
--- NOTE | 2020-02-02 10:42 | RAD ---
EXAM: Single view of the abdomen HISTORY: Kidney stones COMPARISON: None FINDINGS: Single view of the abdomen shows a nonspecific, nonobstructive bowel gas pattern. Multiple small calcifications project over the lower pole both kidneys. The bones are unremarkable. IMPRESSION: Bilateral nephrolithiasis
== END 2020-02-02 09:44 | disposition home or self-care (01) ==
LOC: RAD 09:43
PROVIDERS: ATTEND Urology
DX: N20.0 Calculus of kidney (principal)
CPT/HCPCS: 74018; 81001; 87086

== ENCOUNTER 2020-03-04 06:44 | Outpatient (CLI) | payer MEDICARE ==
--- NOTE | 2020-03-04 08:27 | RAD ---
KUB: HISTORY: Renal calculi. COMPARISON: 02/02/2020 exam. FINDINGS: The bowel gas pattern is nonobstructive. Stool obscures both renal outlines. It is difficult to hugh reciate the calculi. They are better appreciated on the second film which was obtained more in the p joel regions which show bilateral lower pole renal calculi. IMPRESSION: Bilateral lower pole renal calculi. The finding appears fairly similar to the previous exam. POS: KIRILL
--- NOTE | 2020-03-04 08:46 | ULT ---
BILATERAL RENAL ULTRASOUND: Date: 03/04/2020 HISTORY: Renal calculi. FINDINGS: Real-time imaging of the right and left kidneys performed. The right kidney measures 11.0 cm and the left kidney 12.7 cm in size. No cysts, mass, or obstruction. Bladder region shows an incompletely dis tended bladder. Liver is of increased echogenicity suggesting diffuse fatty change. IMPRESSION: No evidence of obstruction of either kidney. Calculi seen on previous CT study are very difficult to appreciate. POS: KIRILL
== END 2020-03-04 06:45 | disposition home or self-care (01) ==
LOC: BICULT 06:44
PROVIDERS: ATTEND Urology
DX: N20.0 Calculus of kidney (principal)
CPT/HCPCS: 36415; 74018; 76770; 80048; 81001; 84550; 87086; G0103

== ENCOUNTER 2020-04-26 11:50 | Outpatient (CLI) | payer MEDICARE ==
--- NOTE | 2020-04-26 12:23 | CT ---
EXAM: CT abdomen and pelvis without contrast PROVIDED CLINICAL HISTORY: Renal calculi COMPARISON: 11/25/2019 FINDINGS: The visualized lung bases are free of significant opacity. Bilateral nephrolithiasis is redemonstrated, right greater than left. Largest calculus involving the right kidney is near the superior pole and measures about 9 mm. Largest calculus involving the left kidney measures about 5 mm and is at the inferior pole. No evidence for ureteral or bladder calculi. Fatty infiltration of the liver is redemonstrated. The solid abdominal organs are suboptimally evalua geovanni in the absence of IV contrast material but demonstrate an otherwise unremarkable unenhanced CT appearance. There is no bowel dilatation, inflammatory fat stranding, free fluid or lymph node enlargement appare nt. Scattered atherosclerotic vascular calcifications are seen. The osseous structures demonstrate no concerning lytic or blastic lesions. Advanced right hip degener ative changes are seen. IMPRESSION: Bilateral nephrolithiasis.
== END 2020-04-26 11:51 | disposition home or self-care (01) ==
LOC: BICCT 11:50
PROVIDERS: ATTEND Urology
DX: N20.0 Calculus of kidney (principal); E66.01 Morbid (severe) obesity due to excess calories; R35.0 Frequency of micturition; N18.9 Chronic kidney disease, unspecified; Z87.39 Personal history of other diseases of the musculoskeletal system and connective tissue
CPT/HCPCS: 36415; 74176; 80048; 81001; 84550; 87086

== ENCOUNTER 2020-07-28 10:29 | Outpatient (CLI) | payer MEDICARE | END 2020-07-28 10:30 | disposition home or self-care (01) | LOC: EDBD → BICRAD 10:29 | PROVIDERS: ATTEND Urology | DX: N20.0 Calculus of kidney (principal); R35.0 Frequency of micturition; N35.819 Other urethral stricture, male, unspecified site; E11.22 Type 2 diabetes mellitus with diabetic chronic kidney disease; N18.9 Chronic kidney disease, unspecified | CPT/HCPCS: 36415; 74018; 80048; 81001; 83036; 87086 ==

== ENCOUNTER 2020-08-25 12:48 | Outpatient (CLI) | payer MEDICARE ==
[2020-08-25 14:57] LABS: Hemoglobin 16.4 g/dL (13.5-17.5); Mean Corpuscular HGB CONC 33.1 g/dL (32.0-36.0); Mean Corpuscular Hemoglobin 28.6 pg (27.0-33.0); Mean Corpuscular Volume 86.4 fl (81.2-95.1); Mean Platelet Volume 10.7 fl (7.4-10.4); Platelet Count 244 10x3/uL (150-450); RBC Distribution Width 14.8 % (11.5-14.5); Red Blood Cell (RBC) Count 5.73 10x6/uL (4.32-5.72)
[2020-08-25 15:15] LABS: PTT 26.2 sec (22.0-33.0); Prothrombin Time 11.2 sec (9.5-12.1)
[2020-08-25 15:16] LABS: Anion Gap 17 mmol/L (10-20); BUN (Urea Nitrogen) 20 mg/dL (8.4-25.7); Calc. Creatinine Clearance 0 mL/min (70-130); Calcium 9.7 mg/dL (7.8-10.44); Carbon Dioxide 24 mmol/L (22-29); Chloride 103 mmol/L (98-107); Glucose 258 mg/dL (70-105); Potassium 4.6 mmol/L (3.5-5.1); Sodium 139 mmol/L (136-145)
[2020-08-26 01:51] LABS: SARS-CoV-2 PCR by NAA Not Detected (NotDetected)
== END 2020-08-25 12:49 | disposition home or self-care (01) ==
LOC: LABBT 12:48
PROVIDERS: ATTEND Urology
DX: Z01.818 Encounter for other preprocedural examination (principal); Z12.5 Encounter for screening for malignant neoplasm of prostate; E11.22 Type 2 diabetes mellitus with diabetic chronic kidney disease; N18.9 Chronic kidney disease, unspecified; N20.0 Calculus of kidney; R35.0 Frequency of micturition; N40.1 Benign prostatic hyperplasia with lower urinary tract symptoms; N35.819 Other urethral stricture, male, unspecified site; E66.01 Morbid (severe) obesity due to excess calories; Z87.39 Personal history of other diseases of the musculoskeletal system and connective tissue; Z20.822 Contact with and (suspected) exposure to COVID-19
CPT/HCPCS: 80048 ×2; 81001; 83036; 85027; 85610; 85730; 87086; 93005; G0103; U0003; U0005; 36415; 87635; 93010

== ENCOUNTER 2020-08-31 05:54 | Day surgery (SDC) | payer MEDICARE ==
[2020-08-30 11:13] VITALS: BMI 47.5
[2020-08-31] MEDS ORDERED: Levofloxacin 500 mg/D5W 100 ml Premix Bag ONE (07:20)
[2020-08-31] MEDS ORDERED: Vancomycin 1 GM/200 ML BAG ONE (07:20)
[2020-08-31] MEDS ORDERED: Fentanyl 100 MCG/2 ML VIAL ONE (08:45)
[2020-08-31] MEDS ORDERED: Dexamethasone 20 MG/5 ML VIAL ONE (09:05)
[2020-08-31] MEDS ORDERED: PHENYLEPHRINE-NS 100 MCG/ML 10 ML SYRINGE ONE (09:05)
[2020-08-31] MEDS ORDERED: Succinylcholine 200 MG/10 ml SYRINGE FS ONE (09:05)
[2020-08-31] MEDS ORDERED: ePHEDrine Sulfate 50 MG/10 ML VIAL ONE (09:05)
[2020-08-31] MEDS ORDERED: PROPOFOL 200 MG/20 ML VIAL ONE (09:05)
[2020-08-31] MEDS ORDERED: Rocuronium Bromide 10 MG/ML (10ML VIAL) ONE (09:05)
[2020-08-31] MEDS ORDERED: Ondansetron PF 4 MG/2 ML Vial ONE (09:05)
[2020-08-31] MEDS ORDERED: Lidocaine 1% PF 5 ML VIAL ONE (09:05)
[2020-08-31] MEDS ORDERED: Oxybutynin 5 MG TAB ONE (11:22)
[2020-08-31] MEDS ORDERED: Phenazopyridine HCl 100 MG TAB ONE (11:22)
[2020-08-31] MEDS ORDERED: traMADol HCl 50 MG TAB ONE (12:10)
[2020-09-06 20:36] LABS: CA Oxalate Monohydrate 10 % (.); Color Tan (.)
== END 2020-08-31 12:43 | disposition home or self-care (01) ==
LOC: EDBD → SDC 05:54
PROVIDERS: ATTEND Urology
PROC: 0TC38ZZ Extirpation of Matter from Right Kidney Pelvis, Via Natural or Artificial Opening Endoscopic (ICD-10-PCS; principal; 2020-08-31)
PROC: 0TC78ZZ Extirpation of Matter from Left Ureter, Via Natural or Artificial Opening Endoscopic (ICD-10-PCS; 2020-08-31)
PROC: 0T768DZ Dilation of Right Ureter with Intraluminal Device, Via Natural or Artificial Opening Endoscopic (ICD-10-PCS; 2020-08-31)
DX: N20.2 Calculus of kidney with calculus of ureter (principal); N35.912 Unspecified bulbous urethral stricture, male; N40.0 Benign prostatic hyperplasia without lower urinary tract symptoms; E66.01 Morbid (severe) obesity due to excess calories; I10 Essential (primary) hypertension; M10.9 Gout, unspecified; N17.9 Acute kidney failure, unspecified; E11.9 Type 2 diabetes mellitus without complications; E78.5 Hyperlipidemia, unspecified; Z68.42 Body mass index [BMI] 45.0-49.9, adult; Z79.82 Long term (current) use of aspirin; Z79.899 Other long term (current) drug therapy; Z88.0 Allergy status to penicillin; Z88.2 Allergy status to sulfonamides; Z79.4 Long term (current) use of insulin
CPT/HCPCS: 74018; 74420; 82365; 88300; J1100; J1956; J2405; J2704; J3010; J3370

== ENCOUNTER 2020-09-09 09:20 | Outpatient (CLI) | payer MEDICARE ==
[2020-09-09 11:23] LABS: Mean Corpuscular HGB CONC 32.8 g/dL (32.0-36.0); Mean Corpuscular Hemoglobin 28.8 pg (27.0-33.0); Mean Corpuscular Volume 87.6 fl (81.2-95.1); Mean Platelet Volume 10.8 fl (7.4-10.4); Platelet Count 242 10x3/uL (150-450); RBC Distribution Width 14.2 % (11.5-14.5); Red Blood Cell (RBC) Count 5.91 10x6/uL (4.32-5.72); White Blood Cell (WBC) Count 8.2 10x3/uL (3.5-10.5)
[2020-09-09 11:49] LABS: Anion Gap 16 mmol/L (10-20); BUN (Urea Nitrogen) 14 mg/dL (8.4-25.7); Calc. Creatinine Clearance 0 mL/min (70-130); Calcium 9.3 mg/dL (7.8-10.44); Carbon Dioxide 19 mmol/L (22-29); Chloride 106 mmol/L (98-107); Glucose 156 mg/dL (70-105); Potassium 4.4 mmol/L (3.5-5.1); Sodium 137 mmol/L (136-145)
[2020-09-09 11:50] LABS: PTT 26.1 sec (22.0-33.0); Prothrombin Time 11.2 sec (9.5-12.1)
[2020-09-09 17:55] LABS: SARS-CoV-2 PCR by NAA Not Detected (NotDetected)
== END 2020-09-09 09:21 | disposition home or self-care (01) ==
LOC: LABBT 09:20
PROVIDERS: ATTEND Urology
DX: Z01.818 Encounter for other preprocedural examination (principal); Z20.822 Contact with and (suspected) exposure to COVID-19
CPT/HCPCS: 80048; 85027; 85610; 85730; U0003; U0005; 87635

== ENCOUNTER 2020-09-14 07:33 | Day surgery (SDC) | payer MEDICARE ==
[2020-09-14] MEDS ORDERED: Vancomycin 1 GM/200 ML BAG ONE (08:05)
[2020-09-14] MEDS ORDERED: Levofloxacin 500 mg/D5W 100 ml Premix Bag ONE (08:05)
[2020-09-14] MEDS ORDERED: Iothalamate Meglumine 60% 50 ML VIAL FS ONE (11:24)
[2020-09-14] MEDS ORDERED: Fentanyl 100 MCG/2 ML VIAL ONE (11:29)
[2020-09-14] MEDS ORDERED: Rocuronium Bromide 10 MG/ML (10ML VIAL) ONE (11:33)
[2020-09-14] MEDS ORDERED: Lidocaine 1% PF 5 ML VIAL ONE (11:33)
[2020-09-14] MEDS ORDERED: Ondansetron PF 4 MG/2 ML Vial ONE (11:33)
[2020-09-14] MEDS ORDERED: Glycopyrrolate 0.2 MG/ML 5 ML SYRINGE ONE (11:33)
[2020-09-14] MEDS ORDERED: PROPOFOL 200 MG/20 ML VIAL ONE (11:33)
[2020-09-14] MEDS ORDERED: Phenazopyridine HCl 100 MG TAB ONE (14:01)
[2020-09-14] MEDS ORDERED: Oxybutynin 5 MG TAB ONE (14:01)
== END 2020-09-14 15:50 | disposition home or self-care (01) ==
LOC: SDC 07:33
PROVIDERS: ATTEND Urology
PROC: 0TC38ZZ Extirpation of Matter from Right Kidney Pelvis, Via Natural or Artificial Opening Endoscopic (ICD-10-PCS; principal; 2020-09-14)
PROC: 0TP98DZ Removal of Intraluminal Device from Ureter, Via Natural or Artificial Opening Endoscopic (ICD-10-PCS; 2020-09-14)
PROC: 0T768DZ Dilation of Right Ureter with Intraluminal Device, Via Natural or Artificial Opening Endoscopic (ICD-10-PCS; 2020-09-14)
DX: N20.0 Calculus of kidney (principal); N35.912 Unspecified bulbous urethral stricture, male; N40.1 Benign prostatic hyperplasia with lower urinary tract symptoms; R35.0 Frequency of micturition; I12.9 Hypertensive chronic kidney disease with stage 1 through stage 4 chronic kidney disease, or unspecified chronic kidney disease; E11.22 Type 2 diabetes mellitus with diabetic chronic kidney disease; N18.9 Chronic kidney disease, unspecified; M10.9 Gout, unspecified; E78.5 Hyperlipidemia, unspecified; E66.01 Morbid (severe) obesity due to excess calories; Z68.42 Body mass index [BMI] 45.0-49.9, adult; Z79.4 Long term (current) use of insulin; Z79.82 Long term (current) use of aspirin; Z79.899 Other long term (current) drug therapy; Z88.0 Allergy status to penicillin; Z88.2 Allergy status to sulfonamides
CPT/HCPCS: 52356; 74018; 74420; 82365; 82962; 88300; Q9961; 36416; J1956; J2405; J2704; J3010; J3370

== ENCOUNTER 2020-09-22 10:24 | Outpatient (CLI) | payer MEDICARE | END 2020-09-22 10:25 | disposition home or self-care (01) | LOC: CT 10:24 | PROVIDERS: ATTEND Urology | DX: N20.0 Calculus of kidney (principal); N28.89 Other specified disorders of kidney and ureter; Z96.0 Presence of urogenital implants | CPT/HCPCS: 74176 ==

== ENCOUNTER 2020-09-30 09:34 | Outpatient (CLI) | payer MEDICARE ==
[2020-09-30 11:42] LABS: PTT 26.2 sec (22.0-33.0); Prothrombin Time 11.2 sec (9.5-12.1)
[2020-09-30 11:46] LABS: Anion Gap 16 mmol/L (10-20); BUN (Urea Nitrogen) 18 mg/dL (8.4-25.7); Calc. Creatinine Clearance 0 mL/min (70-130); Calcium 10.1 mg/dL (7.8-10.44); Carbon Dioxide 24 mmol/L (22-29); Chloride 103 mmol/L (98-107); Glucose 103 mg/dL (70-105); Potassium 4.5 mmol/L (3.5-5.1); Sodium 138 mmol/L (136-145)
[2020-09-30 11:49] LABS: Hemoglobin 15.8 g/dL (13.5-17.5); Mean Corpuscular HGB CONC 33.2 g/dL (32.0-36.0); Mean Corpuscular Hemoglobin 28.9 pg (27.0-33.0); Mean Corpuscular Volume 87.2 fl (81.2-95.1); Platelet Count 242 10x3/uL (150-450); RBC Distribution Width 13.4 % (11.5-14.5); Red Blood Cell (RBC) Count 5.46 10x6/uL (4.32-5.72); White Blood Cell (WBC) Count 8.1 10x3/uL (3.5-10.5)
== END 2020-09-30 09:35 | disposition home or self-care (01) ==
LOC: LABBT 09:34
PROVIDERS: ATTEND Urology
DX: Z01.812 Encounter for preprocedural laboratory examination (principal); N20.0 Calculus of kidney
CPT/HCPCS: 80048; 81001; 85027; 85610; 85730; 86850; 86900; 86901; 87086; 93005; 93010

== ENCOUNTER 2020-10-05 05:44 | Observation (INO) | payer MEDICARE ==
[2020-09-30 11:42] LABS: PTT 26.2 sec (22.0-33.0); Prothrombin Time 11.2 sec (9.5-12.1)
[2020-09-30 11:46] LABS: Anion Gap 16 mmol/L (10-20); BUN (Urea Nitrogen) 18 mg/dL (8.4-25.7); Calc. Creatinine Clearance 0 mL/min (70-130); Calcium 10.1 mg/dL (7.8-10.44); Carbon Dioxide 24 mmol/L (22-29); Chloride 103 mmol/L (98-107); Glucose 103 mg/dL (70-105); Potassium 4.5 mmol/L (3.5-5.1); Sodium 138 mmol/L (136-145)
[2020-09-30 11:49] LABS: Hemoglobin 15.8 g/dL (13.5-17.5); Mean Corpuscular HGB CONC 33.2 g/dL (32.0-36.0); Mean Corpuscular Hemoglobin 28.9 pg (27.0-33.0); Mean Corpuscular Volume 87.2 fl (81.2-95.1); Platelet Count 242 10x3/uL (150-450); RBC Distribution Width 13.4 % (11.5-14.5); Red Blood Cell (RBC) Count 5.46 10x6/uL (4.32-5.72); White Blood Cell (WBC) Count 8.1 10x3/uL (3.5-10.5)
[2020-10-04 10:02] VITALS: BMI 44.9
[2020-10-05] MEDS ORDERED: Levofloxacin 500 mg/D5W 100 ml Premix Bag ONE (06:00)
[2020-10-05] MEDS ORDERED: Vancomycin 1 GM/200 ML BAG ONE (06:01)
[2020-10-05] MEDS ORDERED: Bupivacaine 0.25% HCL 30 ML VIAL ONE (07:22)
[2020-10-05] MEDS ORDERED: Lidocaine 1% (PF) 30 ML VIAL ONE (07:22)
[2020-10-05] MEDS ORDERED: Iothalamate Meglumine 60% 50 ML VIAL FS ONE (07:22)
[2020-10-05] MEDS ORDERED: Sodium Chloride 0.9% 0 ML ONE (07:22)
[2020-10-05] MEDS ORDERED: Iopamidol 0 ML ONE (07:22)
[2020-10-05] MEDS ORDERED: Iopamidol 30 ML ONE (07:23)
[2020-10-05] MEDS ORDERED: Sterile Water 0 ML ONE (07:24)
[2020-10-05] MEDS ORDERED: Fentanyl 100 MCG/2 ML VIAL ONE ×3 (08:11→12:14)
[2020-10-05] MEDS ORDERED: Lidocaine 1% PF 5 ML VIAL ONE (08:48)
[2020-10-05] MEDS ORDERED: Dexamethasone 20 MG/5 ML VIAL ONE (08:48)
[2020-10-05] MEDS ORDERED: Glycopyrrolate 0.2 MG/ML 5 ML SYRINGE ONE (08:48)
[2020-10-05] MEDS ORDERED: PROPOFOL 200 MG/20 ML VIAL ONE (08:48)
[2020-10-05] MEDS ORDERED: Ondansetron PF 4 MG/2 ML Vial ONE (08:48)
[2020-10-05] MEDS ORDERED: Succinylcholine 200 MG/10 ml SYRINGE FS ONE (08:48)
[2020-10-05] MEDS ORDERED: Rocuronium Bromide 10 MG/ML (10ML VIAL) ONE (08:48)
[2020-10-05] MEDS ORDERED: Oxybutynin 5 MG TAB PO PRN (11:50)
[2020-10-05] MEDS ORDERED: Morphine 2 MG/ML VIAL SLOW IVP PRN (11:50)
[2020-10-05] MEDS ORDERED: Dextrose 50% Abboject 50 ML SYRINGE SLOW IVP PRN (11:50)
[2020-10-05] MEDS ORDERED: Dextrose 5% in Water 1,000 ML IV PRN (11:50)
[2020-10-05] MEDS ORDERED: Mag-Al 1200 mg/1200 mg/30 ML UDCUP PO PRN (11:50)
[2020-10-05] MEDS ORDERED: Ondansetron PF 4 MG/2 ML Vial IVP PRN (11:50)
[2020-10-05] MEDS ORDERED: Morphine 4 MG/ML VIAL SLOW IVP PRN (11:50)
[2020-10-05] MEDS ORDERED: diphenhydrAMINE 50 MG/ML VIAL IVP PRN (11:50)
[2020-10-05] MEDS ORDERED: hydrALAZINE 20 MG/ML VIAL SLOW IVP PRN ×2 (11:50)
[2020-10-05 12:30] LABS: #Eosinphils 0.3 thou/uL (0.0-0.7); #Lymphocytes 1.2 thou/uL (1.20-3.40); #Monocytes 0.6 thou/uL (0.11-0.59); #Neutrophils 4.4 thou/uL (1.40-6.50); %Basophils 0.5 % (0.0-1.0); %Eosinophils 4.1 % (0.0-10.0); %Monocytes 9.9 % (0.0-10.0); %Neutrophils 67.5 % (42.0-75.0); Hemoglobin 15.6 g/dL (14.0-18.0); Mean Corpuscular HGB CONC 32.5 g/dL (32.0-36.0); Mean Corpuscular Hemoglobin 29.5 pg (27.0-31.0); Mean Corpuscular Volume 90.9 fL (78.0-98.0); Mean Platelet Volume 7.8 fL (7.4-10.4); Platelet Count 218 thou/uL (130-400); RBC Distribution Width 12.8 % (11.5-14.5); Red Blood Cell (RBC) Count 5.27 mill/uL (4.70-6.10); White Blood Cell (WBC) Count 6.5 thou/uL (4.8-10.8)
[2020-10-05 12:52] LABS: Anion Gap 17 mmol/L (10-20); BUN (Urea Nitrogen) 22 mg/dL (8.4-25.7); Calc. Creatinine Clearance 111 mL/min (70-130); Calcium 9.4 mg/dL (7.8-10.44); Carbon Dioxide 27 mmol/L (22-29); Chloride 97 mmol/L (98-107); Glucose 177 mg/dL (70-105); Potassium 3.9 mmol/L (3.5-5.1); Sodium 137 mmol/L (136-145)
[2020-10-05] MEDS: Sodium Chloride 0.9% 1,000 ML IV SCH (18:18)
[2020-10-05] MEDS: Insulin Regular 300 UNITS/3 ML VIAL SC PRN (20:40)
[2020-10-05] MEDS: Famotidine/PF 20 mg/2ml Vial SLOW IVP SCH (20:41)
[2020-10-05] MEDS: Carvedilol 3.125 MG TAB PO SCH (20:41)
[2020-10-05] MEDS ORDERED: Atorvastatin Calcium 10 MG TAB PO SCH (21:00)
[2020-10-05] MEDS: Docusate 100 MG CAP PO SCH (22:25)
[2020-10-06] MEDS: Sodium Chloride 0.9% 1,000 ML IV SCH ×2 (01:07→09:26)
[2020-10-06 05:17] LABS: #Lymphocytes 0.8 thou/uL (1.20-3.40); #Monocytes 0.9 thou/uL (0.11-0.59); #Neutrophils 10.9 thou/uL (1.40-6.50); %Eosinophils 0.1 % (0.0-10.0); %Lymphocytes 6.2 % (21.0-51.0); %Monocytes 7.3 % (0.0-10.0); %Neutrophils 86.4 % (42.0-75.0); Hemoglobin 14.8 g/dL (14.0-18.0); Mean Corpuscular Hemoglobin 28.7 pg (27.0-31.0); Mean Corpuscular Volume 89.8 fL (78.0-98.0); Mean Platelet Volume 7.9 fL (7.4-10.4); Platelet Count 256 thou/uL (130-400); RBC Distribution Width 12.7 % (11.5-14.5); Red Blood Cell (RBC) Count 5.17 mill/uL (4.70-6.10); White Blood Cell (WBC) Count 12.6 thou/uL (4.8-10.8)
[2020-10-06 05:35] LABS: Anion Gap 13 mmol/L (10-20); BUN (Urea Nitrogen) 20 mg/dL (8.4-25.7); Calc. Creatinine Clearance 116 mL/min (70-130); Carbon Dioxide 24 mmol/L (22-29); Chloride 101 mmol/L (98-107); Glucose 215 mg/dL (70-105); Potassium 4.1 mmol/L (3.5-5.1); Sodium 134 mmol/L (136-145)
[2020-10-06] MEDS: Insulin Regular 300 UNITS/3 ML VIAL SC PRN ×2 (06:52→11:57)
[2020-10-06] MEDS ORDERED: Potassium Chloride 10 MEQ TAB PO SCH (08:00)
[2020-10-06] MEDS ORDERED: Tamsulosin HCl 0.4 MG CAP PO SCH ×2 (09:00)
[2020-10-06] MEDS ORDERED: Lisinopril 5 MG TAB PO SCH (09:00)
[2020-10-06] MEDS ORDERED: Allopurinol 100 MG TAB PO SCH (09:00)
[2020-10-06] MEDS ORDERED: Hydrochlorothiazide 25 MG TAB PO SCH (09:00)
[2020-10-06] MEDS: Docusate 100 MG CAP PO SCH (09:27)
[2020-10-06] MEDS: Famotidine/PF 20 mg/2ml Vial SLOW IVP SCH (09:27)
[2020-10-06] MEDS: Carvedilol 3.125 MG TAB PO SCH (09:27)
[2020-10-06 13:09] VITALS: BP 128/79; TEMP 97.5
[2020-10-20 09:16] LABS: Color Tan (.); Stone Weight 45 mg (.)
== END 2020-10-06 14:21 | disposition home or self-care (01) ==
LOC: SDC 05:44 → EDSTATUS 09:30 → SURG A 13:25
PROVIDERS: ADMIT Urology; ATTEND Urology
PROC: 0T7D8ZZ Dilation of Urethra, Via Natural or Artificial Opening Endoscopic (ICD-10-PCS; principal; 2020-10-05)
PROC: 0TC03ZZ Extirpation of Matter from Right Kidney, Percutaneous Approach (ICD-10-PCS; 2020-10-05)
PROC: 0T763DZ Dilation of Right Ureter with Intraluminal Device, Percutaneous Approach (ICD-10-PCS; 2020-10-05)
DX: N20.0 Calculus of kidney (principal); N35.812 Other bulbous urethral stricture, male; N40.1 Benign prostatic hyperplasia with lower urinary tract symptoms; R35.0 Frequency of micturition; I12.9 Hypertensive chronic kidney disease with stage 1 through stage 4 chronic kidney disease, or unspecified chronic kidney disease; E11.22 Type 2 diabetes mellitus with diabetic chronic kidney disease; N18.9 Chronic kidney disease, unspecified; M10.9 Gout, unspecified; E78.5 Hyperlipidemia, unspecified; K76.0 Fatty (change of) liver, not elsewhere classified; K42.9 Umbilical hernia without obstruction or gangrene; E66.01 Morbid (severe) obesity due to excess calories; Z68.41 Body mass index [BMI] 40.0-44.9, adult; Z79.4 Long term (current) use of insulin; Z79.899 Other long term (current) drug therapy; Z88.0 Allergy status to penicillin; Z88.2 Allergy status to sulfonamides
CPT/HCPCS: 50081; 52281; 71045; 74018; 74176; 76000; 80048 ×2; 82365; 82962 ×2; 85025 ×2; 85027; 85610; 85730; 86850; 86900; 86901; 86920; 88300; C1729; C2617; J2270; 36415; 36416; 96372; 96374; 96375; 96376; G0378; J1100; J1200; J1815; J1956; J2001; J2405; J2704; J3010; J3370; Q9961; Q9967; S0020; S0028

== ENCOUNTER 2021-02-23 07:14 | Outpatient (CLI) | payer MEDICARE | END 2021-02-23 07:15 | disposition home or self-care (01) | LOC: BICULT 07:14 | PROVIDERS: ATTEND Urology | DX: N20.0 Calculus of kidney (principal); Z96.0 Presence of urogenital implants | CPT/HCPCS: 74018; 76770 ==

== ENCOUNTER 2021-06-06 13:07 | Inpatient (IN) | payer MEDICARE ==
[2021-06-06] MEDS ORDERED: Iothalamate Meglumine 60% 50 ML VIAL FS ONE (15:06)
[2021-06-06] MEDS ORDERED: Vancomycin 1 GM/200 ML BAG ONE (15:23)
[2021-06-06] MEDS ORDERED: Fentanyl 250 MCG/5 ML VIAL ONE (15:29)
[2021-06-06] MEDS ORDERED: PROPOFOL 200 MG/20 ML VIAL ONE (15:37)
[2021-06-06] MEDS ORDERED: Lidocaine 1% PF 5 ML VIAL ONE (15:37)
[2021-06-06] MEDS ORDERED: Rocuronium Bromide 10 MG/ML (10ML VIAL) ONE (15:37)
[2021-06-06] MEDS ORDERED: Dexamethasone 20 MG/5 ML VIAL ONE (15:37)
[2021-06-06] MEDS ORDERED: Succinylcholine 200 MG/10 ml SYRINGE FS ONE (15:37)
[2021-06-06] MEDS ORDERED: Ondansetron PF 4 MG/2 ML Vial ONE (15:37)
[2021-06-06] MEDS ORDERED: Acetaminophen 325 MG TAB PO PRN (16:48)
[2021-06-06] MEDS ORDERED: Dextrose 50% Abboject 50 ML SYRINGE SLOW IVP PRN ×2 (16:48→17:01)
[2021-06-06] MEDS ORDERED: Dextrose 5% in Water 1,000 ML IV PRN ×2 (16:48→17:01)
[2021-06-06] MEDS ORDERED: Ondansetron PF 4 MG/2 ML Vial IVP PRN (16:48)
[2021-06-06] MEDS ORDERED: Phenazopyridine HCl 97.5 MG TABLET PO PRN (17:35)
[2021-06-06] MEDS: Lactated Ringer's 1,000 ML IV SCH ×2 (18:33→23:37)
[2021-06-06] MEDS ORDERED: Vancomycin HCl 500 MG in Sodium Chloride 0.9% 100 ML IVPB SCH (18:45)
[2021-06-06] MEDS: traMADol HCl 50 MG TAB PO SCH (20:57)
[2021-06-06] MEDS: Docusate 100 MG CAP PO SCH (20:59)
[2021-06-06] MEDS: HumaLOG 300 UNITS/3 ML VIAL SC PRN (21:08)
[2021-06-06 21:48] VITALS: BMI 47.7
[2021-06-06] MEDS ORDERED: Vancomycin 1 GM in Premix Bag 1 BAG IVPB SCH (23:00)
[2021-06-07] MEDS ORDERED: Vancomycin HCl 750 MG in Sodium Chloride 0.9% 250 ML 250 ML IVPB SCH (04:00)
[2021-06-07] MEDS: HumaLOG 300 UNITS/3 ML VIAL SC PRN ×4 (05:56→20:23)
[2021-06-07 06:43] LABS: Anion Gap 13 mmol/L (10-20); BUN (Urea Nitrogen) 28 mg/dL (8.4-25.7); Calc. Creatinine Clearance 97 mL/min (70-130); Calcium 9.1 mg/dL (7.8-10.44); Carbon Dioxide 23 mmol/L (22-29); Chloride 98 mmol/L (98-107); Glucose 351 mg/dL (70-105); Potassium 4.2 mmol/L (3.5-5.1); Sodium 130 mmol/L (136-145)
[2021-06-07 07:38] LABS: Band 4 % (5-11); Hemoglobin 15.2 g/dL (14.0-18.0); Lymphocytes 6 % (21-51); MDiff Complete? YES; Mean Corpuscular HGB CONC 33.4 g/dL (32.0-36.0); Mean Corpuscular Hemoglobin 30.5 pg (27.0-31.0); Mean Corpuscular Volume 91.3 fL (78.0-98.0); Mean Platelet Volume 8.3 fL (7.4-10.4); Monocytes 4 % (0-10); Neutrophil 86 % (42-75); Platelet Count 181 thou/uL (130-400); RBC Distribution Width 12.6 % (11.5-14.5); RBC Morphology Normal; Red Blood Cell (RBC) Count 4.97 mill/uL (4.70-6.10); White Blood Cell (WBC) Count 11.3 thou/uL (4.8-10.8)
[2021-06-07] MEDS: Docusate 100 MG CAP PO SCH ×2 (07:52→20:10)
[2021-06-07] MEDS: Tamsulosin HCl 0.4 MG CAP PO SCH (07:52)
[2021-06-07] MEDS ORDERED: FLU VACC QS2021-22(6MOS UP)/PF 60 MCG/0.5 ML SYRINGE IM ONE (09:00)
[2021-06-07] MEDS: Lactated Ringer's 1,000 ML IV SCH (13:10)
[2021-06-07] MEDS: traMADol HCl 50 MG TAB PO SCH (20:09)
[2021-06-08] MEDS: Lactated Ringer's 1,000 ML IV SCH (00:05)
[2021-06-08] MEDS: HumaLOG 300 UNITS/3 ML VIAL SC PRN ×2 (05:19→12:17)
[2021-06-08 06:00] LABS: #Monocytes 0.7 thou/uL (0.11-0.59); #Neutrophils 8.2 thou/uL (1.40-6.50); %Basophils 0.2 % (0.0-1.0); %Eosinophils 0.2 % (0.0-10.0); %Monocytes 6.8 % (0.0-10.0); %Neutrophils 82.7 % (42.0-75.0); Hemoglobin 15.8 g/dL (14.0-18.0); Mean Corpuscular HGB CONC 33.5 g/dL (32.0-36.0); Mean Corpuscular Hemoglobin 30.7 pg (27.0-31.0); Mean Corpuscular Volume 91.6 fL (78.0-98.0); Mean Platelet Volume 7.7 fL (7.4-10.4); Platelet Count 221 thou/uL (130-400); RBC Distribution Width 12.6 % (11.5-14.5); Red Blood Cell (RBC) Count 5.16 mill/uL (4.70-6.10); White Blood Cell (WBC) Count 9.9 thou/uL (4.8-10.8)
[2021-06-08 06:23] LABS: ALT (SGPT) 21 U/L (8-55); AST (SGOT) 15 U/L (5-34); Albumin 3.5 g/dL (3.5-5.0); Alkaline Phosphatase 84 U/L (40-110); Anion Gap 13 mmol/L (10-20); BUN (Urea Nitrogen) 27 mg/dL (8.4-25.7); Bilirubin, Total 0.7 mg/dL (0.2-1.2); Calc. Creatinine Clearance 115 mL/min (70-130); Calcium 9.1 mg/dL (7.8-10.44); Carbon Dioxide 24 mmol/L (22-29); Chloride 102 mmol/L (98-107); Globulin 3.2 g/dL (2.4-3.5); Glucose 234 mg/dL (70-105); Potassium 3.6 mmol/L (3.5-5.1); Protein, Total 6.7 g/dL (6.0-8.3); Sodium 135 mmol/L (136-145)
[2021-06-08] MEDS: Docusate 100 MG CAP PO SCH (08:00)
[2021-06-08] MEDS: Tamsulosin HCl 0.4 MG CAP PO SCH (08:00)
[2021-06-08 08:38] VITALS: TEMP 97.5
[2021-06-08 11:54] VITALS: BP 152/80
== END 2021-06-08 16:30 | disposition home or self-care (01) | DRG 853 ==
LOC: ERS 13:07 → SDC 14:54 → ERHOLD 14:55 → T4-B 18:19
PROVIDERS: ADMIT Hospitalist; ATTEND Internal Medicine
PROC: 0T768DZ Dilation of Right Ureter with Intraluminal Device, Via Natural or Artificial Opening Endoscopic (ICD-10-PCS; principal; 2021-06-06)
PROC: BT1D1ZZ Fluoroscopy of Right Kidney, Ureter and Bladder using Low Osmolar Contrast (ICD-10-PCS; 2021-06-06)
DX: A41.1 Sepsis due to other specified staphylococcus (principal); R65.21 Severe sepsis with septic shock; N13.6 Pyonephrosis; N17.9 Acute kidney failure, unspecified; I69.351 Hemiplegia and hemiparesis following cerebral infarction affecting right dominant side; Z68.42 Body mass index [BMI] 45.0-49.9, adult; N13.8 Other obstructive and reflux uropathy; K76.0 Fatty (change of) liver, not elsewhere classified; M10.9 Gout, unspecified; M19.90 Unspecified osteoarthritis, unspecified site; E66.01 Morbid (severe) obesity due to excess calories; F17.220 Nicotine dependence, chewing tobacco, uncomplicated; N40.1 Benign prostatic hyperplasia with lower urinary tract symptoms; K59.00 Constipation, unspecified; Z88.0 Allergy status to penicillin; Z88.2 Allergy status to sulfonamides; Z87.442 Personal history of urinary calculi; Z79.899 Other long term (current) drug therapy; Z79.4 Long term (current) use of insulin
CPT/HCPCS: 36415; 36416; 74420; 80048; 80053; 85025; 87086; 99285; C2617; J1100; J1815; J1956; J2405; J2704; J3010; J3370; J7050; J7120; Q9961-U8

== ENCOUNTER 2021-06-16 09:34 | Outpatient (CLI) | payer MEDICARE ==
[2021-06-16 11:24] LABS: Platelet Count 246 10x3/uL (150-450)
[2021-06-16 11:25] LABS: Hemoglobin 16.9 g/dL (13.5-17.5); Mean Corpuscular HGB CONC 33.8 g/dL (32.0-36.0); Mean Corpuscular Hemoglobin 29.8 pg (27.0-33.0); Mean Corpuscular Volume 88.2 fl (81.2-95.1); RBC Distribution Width 13.3 % (11.5-14.5); Red Blood Cell (RBC) Count 5.67 10x6/uL (4.32-5.72)
[2021-06-16 11:41] LABS: Anion Gap 15 mmol/L (10-20); BUN (Urea Nitrogen) 12 mg/dL (8.4-25.7); Calc. Creatinine Clearance 0 mL/min (70-130); Calcium 8.7 mg/dL (7.8-10.44); Carbon Dioxide 24 mmol/L (22-29); Chloride 104 mmol/L (98-107); Glucose 158 mg/dL (70-105); Potassium 4.5 mmol/L (3.5-5.1); Sodium 138 mmol/L (136-145)
[2021-06-16 11:43] LABS: PTT 24.2 sec (22.0-33.0); Prothrombin Time 10.5 sec (9.5-12.1)
[2021-06-16 17:37] LABS: SARS-CoV-2 PCR by NAA Not Detected (NotDetected)
== END 2021-06-16 09:35 | disposition home or self-care (01) ==
LOC: LABBT 09:34
PROVIDERS: ATTEND Urology
DX: Z01.818 Encounter for other preprocedural examination (principal); N20.0 Calculus of kidney; Z20.822 Contact with and (suspected) exposure to COVID-19
CPT/HCPCS: 80048; 85027; 85610; 85730; 93005; U0003; U0005; 93010

== ENCOUNTER 2021-06-21 06:58 | Day surgery (SDC) | payer MEDICARE ==
[2021-06-21] MEDS ORDERED: Vancomycin 1 GM/200 ML BAG ONE (09:26)
[2021-06-21] MEDS ORDERED: Fentanyl 250 MCG/5 ML VIAL ONE (10:31)
[2021-06-21] MEDS ORDERED: Levofloxacin 500 mg/D5W 100 ml Premix Bag ONE (10:36)
[2021-06-21] MEDS ORDERED: Rocuronium Bromide 10 MG/ML (10ML VIAL) ONE (10:53)
[2021-06-21] MEDS ORDERED: Lidocaine 1% PF 5 ML VIAL ONE (10:53)
[2021-06-21] MEDS ORDERED: Glycopyrrolate 0.2 MG/ML 5 ML SYRINGE ONE (10:53)
[2021-06-21] MEDS ORDERED: Dexamethasone 20 MG/5 ML VIAL ONE (10:53)
[2021-06-21] MEDS ORDERED: Ondansetron PF 4 MG/2 ML Vial ONE (10:53)
[2021-06-21] MEDS ORDERED: PROPOFOL 200 MG/20 ML VIAL ONE (10:53)
[2021-06-21] MEDS ORDERED: SUGAMMADEX SODIUM 200 MG/2 ML VIAL ONE (11:54)
[2021-06-21] MEDS ORDERED: Oxybutynin 5 MG TAB ONE (13:34)
[2021-06-21] MEDS ORDERED: Phenazopyridine HCl 100 MG TAB ONE (13:34)
[2021-06-27 20:36] LABS: CA Oxalate Monohydrate 20 % (.); Color Tan (.); Stone Weight 146 mg (.)
== END 2021-06-21 13:55 | disposition home or self-care (01) ==
LOC: SDC 06:58
PROVIDERS: ATTEND Urology
PROC: 0TC38ZZ Extirpation of Matter from Right Kidney Pelvis, Via Natural or Artificial Opening Endoscopic (ICD-10-PCS; principal; 2021-06-21)
PROC: 0T768DZ Dilation of Right Ureter with Intraluminal Device, Via Natural or Artificial Opening Endoscopic (ICD-10-PCS; 2021-06-21)
DX: N20.0 Calculus of kidney (principal); N28.89 Other specified disorders of kidney and ureter; N21.0 Calculus in bladder; N40.1 Benign prostatic hyperplasia with lower urinary tract symptoms; R35.0 Frequency of micturition; M10.9 Gout, unspecified; I12.9 Hypertensive chronic kidney disease with stage 1 through stage 4 chronic kidney disease, or unspecified chronic kidney disease; E11.22 Type 2 diabetes mellitus with diabetic chronic kidney disease; N18.9 Chronic kidney disease, unspecified; E66.01 Morbid (severe) obesity due to excess calories; Z68.42 Body mass index [BMI] 45.0-49.9, adult; Z79.4 Long term (current) use of insulin; Z79.899 Other long term (current) drug therapy; Z88.0 Allergy status to penicillin; Z88.2 Allergy status to sulfonamides
CPT/HCPCS: 36416; 74018; 74420; 82365; 88300; C2617; J1100; J1956; J2405; J2704; J3010; J3370

== ENCOUNTER 2021-09-11 13:36 | Outpatient (CLI) | payer MEDICARE | END 2021-09-11 13:37 | disposition home or self-care (01) | LOC: BICULT 13:36 | PROVIDERS: ATTEND Urology | DX: N20.0 Calculus of kidney (principal); N32.89 Other specified disorders of bladder; R35.0 Frequency of micturition | CPT/HCPCS: 36415; 74018; 76770; 80048; 81001 ==

== ENCOUNTER 2021-12-16 10:23 | Emergency (ER) | payer MEDICARE ==
[2021-12-16 10:59] LABS: #Basophils 0.1 thou/uL (0.0-0.2); #Eosinphils 0.2 thou/uL (0.0-0.7); #Lymphocytes 1.3 thou/uL (1.20-3.40); #Monocytes 0.6 thou/uL (0.11-0.59); #Neutrophils 5.8 thou/uL (1.40-6.50); %Basophils 0.9 % (0.0-1.0); %Eosinophils 2.9 % (0.0-10.0); %Monocytes 7.3 % (0.0-10.0); Hemoglobin 17.1 g/dL (14.0-18.0); Mean Corpuscular HGB CONC 34.3 g/dL (32.0-36.0); Mean Corpuscular Hemoglobin 31.2 pg (27.0-31.0); Platelet Count 216 thou/uL (130-400); RBC Distribution Width 12.7 % (11.5-14.5); Red Blood Cell (RBC) Count 5.47 mill/uL (4.70-6.10)
[2021-12-16 11:14] LABS: ALT (SGPT) 25 U/L (8-55); AST (SGOT) 19 U/L (5-34); Albumin 4.1 g/dL (3.5-5.0); Alkaline Phosphatase 105 U/L (40-110); Anion Gap 14 mmol/L (10-20); BUN (Urea Nitrogen) 22 mg/dL (8.4-25.7); Calc. Creatinine Clearance 0 mL/min (70-130); Calcium 9.4 mg/dL (7.8-10.44); Carbon Dioxide 26 mmol/L (22-29); Chloride 100 mmol/L (98-107); Estimated GFR 56; Globulin 3.2 g/dL (2.4-3.5); Glucose 142 mg/dL (70-105); Potassium 3.1 mmol/L (3.5-5.1); Protein, Total 7.3 g/dL (6.0-8.3); Sodium 137 mmol/L (136-145)
[2021-12-16 13:05] LABS: Bacteria/HPF None Seen HPF (None Seen); RBC/HPF 0-3 HPF (0-3); Squamous Epithelial 0-3 HPF (0-3)
== END 2021-12-16 16:28 | disposition home or self-care (01) ==
LOC: ERS 10:23
DX: R33.9 Retention of urine, unspecified (principal); M10.9 Gout, unspecified; E11.9 Type 2 diabetes mellitus without complications; I10 Essential (primary) hypertension; F17.220 Nicotine dependence, chewing tobacco, uncomplicated; Z79.899 Other long term (current) drug therapy; Z79.82 Long term (current) use of aspirin; Z79.4 Long term (current) use of insulin; Z86.73 Personal history of transient ischemic attack (TIA), and cerebral infarction without residual deficits
CPT/HCPCS: 36415; 74176; 80053; 81015; 85025

== ENCOUNTER 2022-02-02 11:49 | Outpatient (CLI) | payer MEDICARE ==
[2022-02-02 12:32] LABS: Hemoglobin 17.3 g/dL (13.5-17.5); Mean Corpuscular HGB CONC 34.7 g/dL (32.0-36.0); Mean Corpuscular Hemoglobin 30.4 pg (27.0-33.0); Mean Corpuscular Volume 87.7 fl (81.2-95.1); Mean Platelet Volume 9.7 fl (7.4-10.4); Platelet Count 264 10x3/uL (150-450); RBC Distribution Width 13.5 % (11.5-14.5); Red Blood Cell (RBC) Count 5.69 10x6/uL (4.32-5.72); White Blood Cell (WBC) Count 8.8 10x3/uL (3.5-10.5)
[2022-02-02 12:50] LABS: Prothrombin Time 10.4 sec (9.5-12.1)
[2022-02-02 12:51] LABS: Anion Gap 14 mmol/L (10-20); BUN (Urea Nitrogen) 12 mg/dL (8.4-25.7); Calc. Creatinine Clearance 0 mL/min (70-130); Calcium 9.4 mg/dL (7.8-10.44); Carbon Dioxide 26 mmol/L (22-29); Chloride 104 mmol/L (98-107); Estimated GFR 67; Glucose 127 mg/dL (70-105); Sodium 140 mmol/L (136-145)
== END 2022-02-02 11:50 | disposition home or self-care (01) ==
LOC: LABBT 11:49
PROVIDERS: ATTEND Urology
DX: Z01.818 Encounter for other preprocedural examination (principal); Z12.5 Encounter for screening for malignant neoplasm of prostate; E11.22 Type 2 diabetes mellitus with diabetic chronic kidney disease; N18.9 Chronic kidney disease, unspecified; N40.1 Benign prostatic hyperplasia with lower urinary tract symptoms; N20.0 Calculus of kidney; R35.0 Frequency of micturition; N35.819 Other urethral stricture, male, unspecified site; R60.0 Localized edema; E66.01 Morbid (severe) obesity due to excess calories; Z87.39 Personal history of other diseases of the musculoskeletal system and connective tissue
CPT/HCPCS: 80048; 81001; 85027; 85610; 85730; 87086; 93005; 93010

== ENCOUNTER 2022-02-07 09:53 | Day surgery (SDC) | payer MEDICARE ==
[2022-02-06 10:25] VITALS: BMI 47.5
[2022-02-07] MEDS ORDERED: Vancomycin 1 GM/200 ML BAG ONE (11:05)
[2022-02-07] MEDS ORDERED: Levofloxacin 500 mg/D5W 100 ml Premix Bag ONE (13:15)
[2022-02-07] MEDS ORDERED: Fentanyl 100 MCG/2 ML VIAL ONE (13:51)
[2022-02-07] MEDS ORDERED: SUGAMMADEX SODIUM 200 MG/2 ML VIAL ONE (13:52)
[2022-02-07] MEDS ORDERED: NEOSTIGMINE 3 MG/3 ML SYR 3 MG/3 ML SYRINGE ONE (14:01)
[2022-02-07] MEDS ORDERED: Glycopyrrolate 0.2 MG/ML 5 ML SYRINGE ONE (14:01)
[2022-02-07] MEDS ORDERED: Succinylcholine 200 MG/10 ml SYRINGE FS ONE (14:01)
[2022-02-07] MEDS ORDERED: Ondansetron PF 4 MG/2 ML Vial ONE (14:01)
[2022-02-07] MEDS ORDERED: PROPOFOL 200 MG/20 ML VIAL ONE (14:01)
[2022-02-07] MEDS ORDERED: Rocuronium Bromide 10 MG/ML (10ML VIAL) ONE (14:01)
[2022-02-07] MEDS ORDERED: Triamcinolone 40 MG/ML VIAL ONE ×2 (14:33→14:46)
[2022-02-07] MEDS ORDERED: Phenazopyridine HCl 100 MG TAB ONE (15:23)
[2022-02-07] MEDS ORDERED: Oxybutynin 5 MG TAB ONE (15:23)
== END 2022-02-07 16:45 | disposition home or self-care (01) ==
LOC: SDC 09:53
PROVIDERS: ATTEND Urology
PROC: 0TND8ZZ Release Urethra, Via Natural or Artificial Opening Endoscopic (ICD-10-PCS; principal; 2022-02-07)
PROC: 3E0K83Z Introduction of Anti-inflammatory into Genitourinary Tract, Via Natural or Artificial Opening Endoscopic (ICD-10-PCS; 2022-02-07)
PROC: 0TC38ZZ Extirpation of Matter from Right Kidney Pelvis, Via Natural or Artificial Opening Endoscopic (ICD-10-PCS; 2022-02-07)
PROC: 0T768DZ Dilation of Right Ureter with Intraluminal Device, Via Natural or Artificial Opening Endoscopic (ICD-10-PCS; 2022-02-07)
DX: N20.0 Calculus of kidney (principal); N35.812 Other bulbous urethral stricture, male; N40.1 Benign prostatic hyperplasia with lower urinary tract symptoms; R39.14 Feeling of incomplete bladder emptying; R35.0 Frequency of micturition; I12.9 Hypertensive chronic kidney disease with stage 1 through stage 4 chronic kidney disease, or unspecified chronic kidney disease; E11.22 Type 2 diabetes mellitus with diabetic chronic kidney disease; N18.9 Chronic kidney disease, unspecified; M10.9 Gout, unspecified; E78.5 Hyperlipidemia, unspecified; F17.290 Nicotine dependence, other tobacco product, uncomplicated; E66.01 Morbid (severe) obesity due to excess calories; Z68.42 Body mass index [BMI] 45.0-49.9, adult; Z79.4 Long term (current) use of insulin; Z79.82 Long term (current) use of aspirin; Z79.85 Long-term (current) use of injectable non-insulin antidiabetic drugs; Z79.899 Other long term (current) drug therapy; Z88.0 Allergy status to penicillin; Z88.2 Allergy status to sulfonamides; Z91.048 Other nonmedicinal substance allergy status
CPT/HCPCS: 36416; 74018; 74420; C1769; C2617; J1956; J2405; J2704; J3010; J3301; J3370

== ENCOUNTER 2022-05-28 08:39 | Outpatient (CLI) | payer MEDICARE | END 2022-05-28 08:40 | disposition home or self-care (01) | LOC: ULT 08:39 | PROVIDERS: ATTEND Urology | DX: N20.0 Calculus of kidney (principal) | CPT/HCPCS: 36415; 74018; 76770; 80048; 81001; 84550; 87086; G0103 ==

== ENCOUNTER 2022-12-03 08:17 | Outpatient (CLI) | payer MEDICARE | END 2022-12-03 08:18 | disposition home or self-care (01) | LOC: BICULT 08:17 → RAD 08:18 | PROVIDERS: ATTEND Urology | DX: N20.0 Calculus of kidney (principal); N40.1 Benign prostatic hyperplasia with lower urinary tract symptoms | CPT/HCPCS: 74018; 76770 ==

== ENCOUNTER 2023-04-04 12:29 | Outpatient (CLI) | payer MEDICARE | END 2023-04-04 12:30 | disposition home or self-care (01) | LOC: RAD 12:29 | PROVIDERS: ATTEND Urology | DX: N20.0 Calculus of kidney (principal); R35.0 Frequency of micturition; N35.819 Other urethral stricture, male, unspecified site; N18.9 Chronic kidney disease, unspecified | CPT/HCPCS: 74018 ==